=== PATIENT | female | born 1980 | race Caucasian/White ===

== ENCOUNTER 2024-05-15 14:17 | Emergency (ER) | payer SELFPAY ==
--- NOTE | 2024-05-15 14:25 | ED_ITS ---
Discharge Plan Disposition Patient Disposition: Home, Self-Care Condition: Good Prescriptions Prescriptions: New clindamycin HCl 150 mg capsule 450 mg PO Q8H 7 Days Qty: 63 0RF Activity Restrictions/Add. Instructions Additional Instructions/Restrictions: Please follow-up with your dentist, return to the emergency department any worsening signs or symptoms, please take clindamycin medication as prescribed with food. Clinical Impressions Clinical Impression: Pain, dental Instructions Patient Instructions: DI for Dental Pain Discharge ED Provider: Lester Baldwin General Adult HPI <AUDREY Romero - Last Filed: 05/15/24 14:36> General Chief complaint: Dental/Oral Stated complaint: tooth infection Time Seen by Provider: 05/15/24 14:18 Mode of Arrival: Ambulatory Source of Information: Patient Limitations: No Limitations History of Present Illness HPI narrative: 43-year-old female presents emergency department with right sided dental/tooth pain, localized to the right canine/first premolar region for the last 2 days, no dental trauma per history. Patient has area of dental caries there, and semiavulsed tooth, that she states happened approximately 3 months ago , she has history of epilepsy and takes lamotrigine, she was told that she would need oral surgeon evaluation for her dental caries/poor dentition while taking lamotrigine medication. Patient denies any fever chills chest pain shortness of breath nausea or vomiting, constipation diarrhea no urinary type symptomatology. Patient has no other real relevant past medical history takes no medications at home, denies any history of substance use/abuse, initial triage vitals grossly unremarkable. Patient of note has appointment with dental provider, as well as oral surgeon when she gets back to her home , patient tells me that she is traveling away from home at this time. Onset (ago): day(s) Related Data Previous Rx's ?Medication ?Instructions ?Recorded clindamycin HCl 150 mg capsule 450 mg (3 x 150 mg) PO Q8H 7 days 05/15/24 #63 caps Allergies Allergy/AdvReac Type Severity Reaction Status Date / Time ciprofloxacin (From Cipro) Allergy Unknown Verified 05/15/24 14:30 allergy reaction ketorolac (From Toradol) Allergy Unknown Verified 05/15/24 14:30 allergy reaction latex Allergy Unknown Verified 05/15/24 14:30 allergy reaction lidocaine Allergy Unknown Verified 05/15/24 14:30 allergy reaction meperidine (From Demerol) Allergy Unknown Verified 05/15/24 14:30 allergy reaction phenazopyridine (From Allergy Unknown Verified 05/15/24 14:30 Pyridium) allergy reaction prednisone Allergy Unknown Verified 05/15/24 14:30 allergy reaction promethazine (From Phenergan) Allergy Unknown Verified 05/15/24 14:30 allergy reaction PFSH <AUDREY Romero - Last Filed: 05/15/24 14:36> [facility] Disclaimer: The information contained in this section may have been updated after the patient was seen, as this information can be updated by other users. Social History (Updated 05/15/24 @ 14:36 by AUDREY Romero) Smoking Status: Never smoker alcohol intake: never current occupational status: other Travel in the last 8 weeks: None <AUDREY Romero - Last Filed: 05/15/24 14:36> ROS Obtained: Yes All systems reviewed & no additional complaints except as documented Physical Exam <AUDREY Romero - Last Filed: 05/15/24 14:36> General General appearance: alert and in no apparent distress Head Head exam: atraumatic and normocephalic Eye Eye exam: Present PERRL and EOMI ENT ENT exam: Present normal oropharynx, mucous membranes moist and other (Numerous area of dental caries, there is some dental caries, but no periodontal or periapical abscess around the canine on the right upper side and first premolar, with area of avulsed tooth/poor dentition, but once again no obvious periodontal or periapical abscess that would be amicable to drainag) Neck Neck exam: Present normal inspection Chest Chest inspection: Present normal inspection and symmetric chest wall rise Respiratory Respiratory exam: Present normal lung sounds bilaterally; Absent respiratory distress Cardiovascular Cardiovascular exam: Present regular rate and normal rhythm Abdominal Exam Abdominal exam: Present soft; Absent tenderness Extremities Exam Extremities exam: Present normal inspection Neurological Exam Neurological exam: Present alert and oriented X3 Psychiatric Psychiatric exam: Present normal affect Skin Skin exam: Present warm and dry Medical Decision Making <AUDREY Romero - Last Filed: 05/15/24 14:36> Medical Records Medical records reviewed: Yes I reviewed the patient's medical records. Screening: Per USPSTF and CDC recommendations, given the prevalence of disease in our region, it is our hospital?s policy to screen for HIV and viral Hepatitis for all patients aged 18 and over and those with ongoing risk factors. Issac Inquiry Pt receiving controlled substance: No Issac was queried for this patient: No Vital Signs: 05/15/24 14:26 Temperature 97.9 F Temperature Source Oral Pulse Rate [Radial] 92 H Respiratory Rate 18 Blood Pressure [Right Arm] 160/73 H Blood Pressure Mean [Right Arm] 102 Blood Pressure Source [Right Arm] Automatic Cuff Blood Pressure Position [Right Arm] Sitting 02 Sat by Pulse Oximetry 96 Oxygen Delivery Method Room Air Medical Decision Narrative: 43-year-old female presents to the emergency department with right-sided dental pain. Differential diagnose include but not limited to periapical abscess, dental caries, poor dentition, dental abscess. Offered patient analgesia here in the emergency department, to include tooth ball and p.o. analgesia, she denied at this time she tells me that she would would just like antibiotics , she states that she is taking clindamycin in the past for her dental pain, will prescribe clindamycin 450 mg p.o. every 8 for 7 days, patient was given strict ED return precautions, patient will follow-up with dentist and other providers as directed. Patient voiced understand agree with current treatment plan/discharge plan. <Lester Baldwin MD - Last Filed: 05/15/24 14:39> Vital Signs: 05/15/24 14:26 Temperature 97.9 F Temperature Source Oral Pulse Rate [Radial] 92 H Respiratory Rate 18 Blood Pressure [Right Arm] 160/73 H Blood Pressure Mean [Right Arm] 102 Blood Pressure Source [Right Arm] Automatic Cuff Blood Pressure Position [Right Arm] Sitting 02 Sat by Pulse Oximetry 96 Oxygen Delivery Method Room Air Medical Decision Narrative: 43-year-old female presents to the emergency department with right-sided dental pain. Differential diagnose include but not limited to periapical abscess, dental caries, poor dentition, dental abscess. Offered patient analgesia here in the emergency department, to include tooth ball and p.o. analgesia, she denied at this time she tells me that she would would just like antibiotics , she states that she is taking clindamycin in the past for her dental pain, will prescribe clindamycin 450 mg p.o. every 8 for 7 days, patient was given strict ED return precautions, patient will follow-up with dentist and other providers as directed. Patient voiced understand agree with current treatment plan/discharge plan. I was consulted by the FABIAN, and we discussed the complexity of the problems being addressed. I approved the treatment and management plan for this patient's care in the Emergency Department, thus performing a substantive portion of the medical decision making. Lester Baldwin MD Critical Care <AUDREY Romero - Last Filed: 05/15/24 14:36> Critical Care Time Critical Care Time: No
[2024-05-15 14:26] VITALS: BP 160/73; PULSE 92; RESP 18; TEMP 36.6; O2SAT 96; BMI 42.3
[2024-05-15 14:48] VITALS: BP 136/70; PULSE 70; RESP 16; TEMP 36.7; O2SAT 99
--- NOTE | 2024-05-21 11:24 | PC.NURSE ---
PT CALLED STATING SHE DROPPED PER MEDS FOR DENTAL INFECTION IN [facility]. NEW RX FOR SAME MED (CLINDAMYCIN) CALLED IN TO [facility]
== END 2024-05-15 14:52 | disposition home or self-care (01) ==
LOC: ER 14:51
PROVIDERS: Emergency Provider Emergency Medicine
DX: K04.7 Periapical abscess without sinus (principal); K08.89 Other specified disorders of teeth and supporting structures; K02.9 Dental caries, unspecified; S03.2XXA Dislocation of tooth, initial encounter; G40.909 Epilepsy, unspecified, not intractable, without status epilepticus; Z88.5 Allergy status to narcotic agent; Z88.8 Allergy status to other drugs, medicaments and biological substances; Z88.1 Allergy status to other antibiotic agents; Z91.040 Latex allergy status
CPT/HCPCS: 99282

== ENCOUNTER 2024-05-26 22:05 | Emergency (ER) | payer SELFPAY ==
[2024-05-26 22:13] VITALS: BP 135/82; PULSE 84; RESP 16; TEMP 37.1; O2SAT 97; BMI 43.0
--- NOTE | 2024-05-26 22:19 | PC.NURSE ---
Pt awake alert and oriented States mouth swollen no facial swelling appreciated Pt able to swallow and handle her secretions Resp full and easy Speech clear and appropriate.
--- NOTE | 2024-05-26 22:27 | CT_ITS ---
PROCEDURE INFORMATION: Exam: CT Neck With Contrast Exam date and time: 05/26/2024 11:09 PM Age: 43 years old Clinical indication: Pain; Other: Right sided facial swelling; Additional info: Dentist sent 4 R/O asha. Subjective R face pain TECHNIQUE: Imaging protocol: Computed tomography of the neck with contrast. Radiation optimization: All CT scans at this facility use at least one of these dose optimization techniques: automated exposure control; mA and/or kV adjustment per patient size (includes targeted exams where dose is matched to clinical indication); or iterative reconstruction. Contrast material: ISOVUE; Contrast volume: 75 ml; Contrast route: IV; COMPARISON: No relevant prior studies available. FINDINGS: Salivary glands: Normal. Glands are normal in size. Pharynx: Unremarkable. Larynx: Unremarkable. Epiglottis is normal. Thyroid: Normal. No enlarged or calcified nodules. Trachea: Visualized trachea is unremarkable. Lungs: Unremarkable as visualized. Lymph nodes: Unremarkable. No lymphadenopathy. Bones/joints: Unremarkable. No acute fracture. Soft tissues: Asymmetric soft tissue effacing the pre-epiglottic space may represent retained secretions or lingual tonsillar hypertrophy. Remaining hypopharyngeal soft tissues within normal limits. IMPRESSION: 1. No acute process identified. 2. Nonspecific soft tissue effacing pre-epiglottic space may represent retained secretions and/or lingual tonsillar hypertrophy. Clinical scenario should determine need for correlation with direct visualization.
--- NOTE | 2024-05-26 23:10 | PC.NURSE ---
Pt ambulatory to CT scan
--- NOTE | 2024-05-26 23:13 | HMH.EDGENADL ---
Discharge Plan Disposition Patient Disposition: Home, Self-Care Condition: Good Prescriptions Prescriptions: No Action clindamycin HCl 150 mg capsule 450 mg PO Q8H 7 Days Qty: 63 0RF Referrals Follow up/Referrals: Provider,Referral, [Primary Care Provider] - See instructions Activity Restrictions/Add. Instructions Additional Instructions/Restrictions: You were evaluated in the ER and are appropriate for discharge at this time. Make an appointment with your dentist for follow-up. Also make an appointment with your primary care doctor for reevaluation. Return to the ER with any new, worsening, or otherwise concerning symptoms Clinical Impressions Clinical Impression: Status post tooth extraction Print Language Print Language: Syriac Discharge ED Provider: Lester Baldwin General Adult HPI <Lester Baldwin MD - Last Filed: 05/26/24 23:17> General Chief complaint: PAIN Stated complaint: cellulitis on right side of face Time Seen by Provider: 05/26/24 22:20 Mode of Arrival: Ambulatory Source of Information: Patient Description of Symptoms (Recalled from ER Triage Doc. by RN): Pt states she had 2 teeth upper right side pulled and Dentist told her she had cellulititis and needed to see the ED History of Present Illness HPI narrative: Please note that above description of symptoms, in this electronic medical record under categorization of recalled from ER triage doctor by RN are reflective of an initial nursing assessment, however, is not reflective of my full history and physical exam that was personally taken and clarified. Consequentially, this preceding description of symptoms, which may include the patient's categorized chief complaint in the EMR, do not reflect my personal clinical impression, and the ultimate description of history of present illness and patient stated complaints should be deferred to this section of the note. Unless stated otherwise or congruent with this section of the note, additional signs, symptoms, or incongruence should be interpreted as inaccurate with my clinical impression. Related Data Previous Rx's ?Medication ?Instructions ?Recorded clindamycin HCl 150 mg capsule 450 mg (3 x 150 mg) PO Q8H 7 days 05/15/24 #63 caps Allergies Allergy/AdvReac Type Severity Reaction Status Date / Time ciprofloxacin (From Cipro) Allergy Unknown Verified 05/15/24 14:30 allergy reaction ketorolac (From Toradol) Allergy Unknown Verified 05/15/24 14:30 allergy reaction latex Allergy Unknown Verified 05/15/24 14:30 allergy reaction lidocaine Allergy Unknown Verified 05/15/24 14:30 allergy reaction meperidine (From Demerol) Allergy Unknown Verified 05/15/24 14:30 allergy reaction phenazopyridine (From Allergy Unknown Verified 05/15/24 14:30 Pyridium) allergy reaction prednisone Allergy Unknown Verified 05/15/24 14:30 allergy reaction promethazine (From Phenergan) Allergy Unknown Verified 05/15/24 14:30 allergy reaction PFSH <Lester Baldwin MD - Last Filed: 05/26/24 23:17> [facility] Disclaimer: The information contained in this section may have been updated after the patient was seen, as this information can be updated by other users. Social History (Updated 05/15/24 @ 14:36 by AUDREY Romero) Smoking Status: Never smoker alcohol intake: never current occupational status: other Travel in the last 8 weeks: None Have you lived/traveled outside [place] in past 30 days?: No Contact w/someone who lives/traveled outside [place] past 30 days?: No Exposure to someone with infectious disease in past 14 days?: No Do you have a fever (greater than 100.4 F or 38 C)?: No Have you tested positive for COVID-19: No Exposed to someone with COVID-19 in past 14 days?: No Do you have a sore throat?: No Do you have a cough?: No Do you have any weakness?: No Do you have any diarrhea?: No Are you experiencing any unusual bleeding?: No Do you have any muscle aches/pain?: No Do you have any abdominal pain?: No Are you experiencing loss of taste or smell?: No <Lester Baldwin MD - Last Filed: 05/26/24 23:17> ROS Obtained: Yes All systems reviewed & no additional complaints except as documented Physical Exam <Lester Baldwin MD - Last Filed: 05/26/24 23:17> General General appearance: alert Head Head exam: atraumatic and normocephalic Eye Eye exam: Present normal appearance, PERRL and EOMI ENT ENT exam: Present normal exam, normal oropharynx, mucous membranes moist and other (No evidence of tonsillitis, exudate, pharyngeal erythema, uvular deviation, palatal swelling, trismus, external neck swelling, submental induration, dental abscess, angioedema, or other abnormal maribell pharyngeal findings) Neck Neck exam: Present normal inspection, full ROM and trachea midline Respiratory Respiratory exam: Absent respiratory distress, wheezes, stridor, accessory muscle use or prolonged expiratory phase Cardiovascular Cardiovascular exam: Present other (Pulses equal symmetric in upper and lower extremities) Abdominal Exam Abdominal exam: Present soft; Absent distention, tenderness or pulsatile mass Extremities Exam Extremities exam: Absent edema Neurological Exam Neurological exam: Present alert, oriented X3 and CN II-XII intact; Absent motor sensory deficit Skin Skin exam: Present warm and dry; Absent diaphoresis or erythema Medical Decision Making <Lester Baldwin MD - Last Filed: 05/26/24 23:17> Medical Records Medical records reviewed: Yes I reviewed the patient's medical records. Screening: Per USPSTF and CDC recommendations, given the prevalence of disease in our region, it is our hospital?s policy to screen for HIV and viral Hepatitis for all patients aged 18 and over and those with ongoing risk factors. Issac Inquiry Pt receiving controlled substance: No Issac was queried for this patient: No Vital Signs: 05/26/24 22:13 05/26/24 23:36 05/26/24 23:51 Temperature 98.7 F 98.0 F 98.4 F Temperature Source Oral Oral Oral Pulse Rate 74 80 Pulse Rate [Right Brachial] 84 Respiratory Rate 16 20 20 Blood Pressure 135/41 L 130/50 L Blood Pressure [Right Arm] 135/82 Blood Pressure Mean [Right Arm] 99 Blood Pressure Source Automatic Cuff Automatic Cuff Blood Pressure Source [Right Arm] Automatic Cuff Blood Pressure Position Sitting Sitting Blood Pressure Position [Right Arm] Sitting 02 Sat by Pulse Oximetry 97 99 Oxygen Delivery Method Room Air Room Air Room Air Lab Data Lab Results 05/26/24 23:10: WBC 6.2, RBC 4.51, Hgb 12.8, Hct 39.4, MCV 87.4, MCH 28.4, MCHC 32.5, RDW 12.8, Plt Count 324, MPV 8.8, Neut % (Auto) 55.7, Lymph % (Auto) 30.6, [place] % (Auto) 11.1 H, Eos % (Auto) 1.8, Baso % (Auto) 0.3, Neut # (Auto) 3.5, Lymph # (Auto) 1.9, [place] # (Auto) 0.7, Eos # (Auto) 0.1, Baso # (Auto) 0.0, Sodium 139, Potassium 4.3, Chloride 102, Carbon Dioxide 28, Anion Gap 13.3, BUN 16, Creatinine 0.70, Estimated Creat Clear 73, Estimated GFR 90, Est GFR ( Amer) 109, Glucose 112 H, Calcium 9.7, Total Bilirubin 0.4, AST 52 H, ALT 51, Alkaline Phosphatase 84, Total Protein 8.0, Albumin 4.4, Globulin 3.6 H, Albumin/Globulin Ratio 1.2 05/26/24 23:10 05/26/24 23:10 Orders (Tests/Meds): ED MEDICATIONS Discontinued Medications Generic Name Dose Route Start Last Admin Trade Name Freq PRN Reason Stop Dose Admin Iopamidol 75 ml 05/26/24 23:26 05/26/24 23:28 Iopamidol-370 (76%);100ml Bottle IV 05/26/24 23:27 75 ml ONCE ONE Administration Sodium Chloride 10 ml 05/26/24 23:26 05/26/24 23:28 Sodium Chloride 0.9% 10ml Syr (Rad Only) IV 05/26/24 23:27 10 ml ONCE ONE Administration ORDERS Category Date Time Status CT soft tissue neck w con Stat Cat Scan 05/26/24 22:27 Completed CBC w/Auto Diff [Complete Blood Count Auto Diff] Stat Lab 05/26/24 23:10 Completed CMP [Comprehensive Metabolic Panel] Stat Lab 05/26/24 23:10 Completed HIV Combo Routine Lab 05/26/24 23:10 Received Hepatitis C Ab Qual. W/ RFX Routine Lab 05/26/24 23:10 Received Medical Decision Narrative: 43-year-old female presenting with subjective right-sided facial swelling and concern for cellulitis. Patient states that she had come to the emergency department a few days prior to this, was prescribed clindamycin. Followed up with [facility] and had 2 teeth pulled. Since that time, she states that her tooth pain, is better but states that she feels that she has cellulitis in her cheek. Dentist said that she should come to the emergency department and be scanned for Roby's angina or cellulitis. Patient presents today for this. History was obtained via conversation with patient. On arrival, patient hemodynamically stable, alert, [oriented x4, ][appropriate, ]GCS [15], moving all extremities spontaneously, pupils equal and reactive to light. Full physical exam performed and significant for completely unremarkable exam. Patient speaking full sentences, appears mildly anxious. Bilateral buccal membranes are soft, unremarkable, not indurated, although she feels that they are. Bilateral cheeks are nonindurated, nonerythematous, not warm. Oropharynx normal, no base of tongue swelling. No evidence of tonsillitis, exudate, pharyngeal erythema, uvular deviation, palatal swelling, trismus, external neck swelling, submental induration, dental abscess, angioedema, or other abnormal maribell pharyngeal findings. Patient does not have any appreciable lymphadenopathy. Completely normal exam despite patient's subjective complaints. Differential includes illness anxiety disorder, post dental extraction pain, less likely to be cellulitis, Roby's angina, among others.. Labs ordered, CT scan also ordered. Prior to these being performed, care handed off to oncoming physician. [employer] Hand disclaimer Much of this encounter note is an electronic sales operations associate spoken language to printed text. Electronic sales operations associate of the spoken language may permit errors. Although I have reviewed the note, some errors may still exist. <Erin Jaquez MD - Last Filed: 05/26/24 23:58> Vital Signs: 05/26/24 22:13 05/26/24 23:36 05/26/24 23:51 Temperature 98.7 F 98.0 F 98.4 F Temperature Source Oral Oral Oral Pulse Rate 74 80 Pulse Rate [Right Brachial] 84 Respiratory Rate 16 20 20 Blood Pressure 135/41 L 130/50 L Blood Pressure [Right Arm] 135/82 Blood Pressure Mean [Right Arm] 99 Blood Pressure Source Automatic Cuff Automatic Cuff Blood Pressure Source [Right Arm] Automatic Cuff Blood Pressure Position Sitting Sitting Blood Pressure Position [Right Arm] Sitting 02 Sat by Pulse Oximetry 97 99 Oxygen Delivery Method Room Air Room Air Room Air Lab Data Lab Results 05/26/24 23:10: WBC 6.2, RBC 4.51, Hgb 12.8, Hct 39.4, MCV 87.4, MCH 28.4, MCHC 32.5, RDW 12.8, Plt Count 324, MPV 8.8, Neut % (Auto) 55.7, Lymph % (Auto) 30.6, [place] % (Auto) 11.1 H, Eos % (Auto) 1.8, Baso % (Auto) 0.3, Neut # (Auto) 3.5, Lymph # (Auto) 1.9, [place] # (Auto) 0.7, Eos # (Auto) 0.1, Baso # (Auto) 0.0, Sodium 139, Potassium 4.3, Chloride 102, Carbon Dioxide 28, Anion Gap 13.3, BUN 16, Creatinine 0.70, Estimated Creat Clear 73, Estimated GFR 90, Est GFR ( Amer) 109, Glucose 112 H, Calcium 9.7, Total Bilirubin 0.4, AST 52 H, ALT 51, Alkaline Phosphatase 84, Total Protein 8.0, Albumin 4.4, Globulin 3.6 H, Albumin/Globulin Ratio 1.2 Orders (Tests/Meds): ED MEDICATIONS Discontinued Medications Generic Name Dose Route Start Last Admin Trade Name Freq PRN Reason Stop Dose Admin Iopamidol 75 ml 05/26/24 23:26 05/26/24 23:28 Iopamidol-370 (76%);100ml Bottle IV 05/26/24 23:27 75 ml ONCE ONE Administration Sodium Chloride 10 ml 05/26/24 23:26 05/26/24 23:28 Sodium Chloride 0.9% 10ml Syr (Rad Only) IV 05/26/24 23:27 10 ml ONCE ONE Administration ORDERS Category Date Time Status CT soft tissue neck w con Stat Cat Scan 05/26/24 22:27 Completed CBC w/Auto Diff [Complete Blood Count Auto Diff] Stat Lab 05/26/24 23:10 Completed CMP [Comprehensive Metabolic Panel] Stat Lab 05/26/24 23:10 Completed HIV Combo Routine Lab 05/26/24 23:10 Received Hepatitis C Ab Qual. W/ RFX Routine Lab 05/26/24 23:10 Received Medical Decision Narrative: 43-year-old female presenting with subjective right-sided facial swelling and concern for cellulitis. Patient states that she had come to the emergency department a few days prior to this, was prescribed clindamycin. Followed up with [facility] and had 2 teeth pulled. Since that time, she states that her tooth pain, is better but states that she feels that she has cellulitis in her cheek. Dentist said that she should come to the emergency department and be scanned for Roby's angina or cellulitis. Patient presents today for this. History was obtained via conversation with patient. On arrival, patient hemodynamically stable, alert, [oriented x4, ][appropriate, ]GCS [15], moving all extremities spontaneously, pupils equal and reactive to light. Full physical exam performed and significant for completely unremarkable exam. Patient speaking full sentences, appears mildly anxious. Bilateral buccal membranes are soft, unremarkable, not indurated, although she feels that they are. Bilateral cheeks are nonindurated, nonerythematous, not warm. Oropharynx normal, no base of tongue swelling. No evidence of tonsillitis, exudate, pharyngeal erythema, uvular deviation, palatal swelling, trismus, external neck swelling, submental induration, dental abscess, angioedema, or other abnormal maribell pharyngeal findings. Patient does not have any appreciable lymphadenopathy. Completely normal exam despite patient's subjective complaints. Differential includes illness anxiety disorder, post dental extraction pain, less likely to be cellulitis, Roby's angina, among others.. Labs ordered, CT scan also ordered. Prior to these being performed, care handed off to oncoming physician. Jaquez: Upon my assumption of care patient is stable, resting comfortably, vitals are very reassuring and patient has no evidence of infection clinically. I agree with the assessment and plan from Dr. Baldwin. Labs demonstrate no leukocytosis or anemia, normal platelets, CMP nonactionable. CT was personally interpreted and I do not appreciate any evidence of fluid collection, cellulitis, Roby's angina. See radiology read for full interpretation. Radiology read comments on possible lingual tonsillar hypertrophy, this does not correlate clinically, patient does not have any symptoms that would be consistent with this. I believe it is much more likely to be retained secretions which was also believed to be a possibility per the radiologist. On reassessment patient is very relieved by our workup and findings. She is glad there is no evidence of infection. She is appropriate for discharge without further intervention or workup at this time. No changes to medications. Patient was given instructions on symptomatic management, follow up instructions including with her dentist and PCP, and return precautions for the emergency department. Patient indicated understanding and was discharged in stable condition. [employer] Hand disclaimer Much of this encounter note is an electronic sales operations associate spoken language to printed text. Electronic sales operations associate of the spoken language may permit errors. Although I have reviewed the note, some errors may still exist. Critical Care <Lester Baldwin MD - Last Filed: 05/26/24 23:17> Critical Care Time Critical Care Time: No
[2024-05-26 23:17] LABS: Basophils % 0.3 % (0.1-2.0); Eosinophils # 0.1 K/mm3 (0.0-0.4); Eosinophils % 1.8 % (0.1-12.0); Hematocrit 39.4 % (37.0-47.0); Hemoglobin 12.8 g/dL (12.2-16.2); Lymphocytes # 1.9 K/mm3 (0.7-4.5); Lymphocytes % 30.6 % (10-50); Mean Corpuscular HGB Conc 32.5 g/dL (31.8-35.4); Mean Corpuscular Hemoglobin 28.4 pg (27.0-31.2); Mean Corpuscular Volume 87.4 fl (81-99); Mean Platelet Volume 8.8 fl (7.4-10.4); Monocytes # 0.7 K/mm3 (0.1-1.0); Monocytes % 11.1 % (1.7-9.3); Neutrophils # 3.5 K/mm3 (1.8-7.8); Neutrophils % 55.7 % (37.0-80.0); Platelet Count 324 K/mm3 (142-424); Red Blood Count 4.51 M/mm3 (4.20-5.40); Red Cell Distribution Width 12.8 % (11.5-17.5); White Blood Count 6.2 K/mm3 (4.8-10.8)
[2024-05-26 23:20] LABS: Albumin Level 4.4 g/dl (3.5-5.0); Chloride 102 mmol/L (98-107); Potassium 4.3 mmoL/L (3.5-5.1); Sodium 139 mmol/L (136-145)
[2024-05-26 23:22] LABS: Blood Urea Nitrogen 16 mg/dl (7-17); Creatinine Clearance Estimated 73 mL/min (50-200); Estimated Glomerular Filt Rate 90 ml/min (>60); GFR (African American) 109 ML/MIN (>60)
[2024-05-26 23:23] LABS: Alanine Aminotransferase 51 U/L (12-78); Albumin/Globulin Ratio 1.2 (1.1-1.8); Alkaline Phosphatase 84 U/L (38-126); Anion Gap 13.3 mEq/L (5-15); Aspartate Amino Transferase 52 U/L (14-36); Bilirubin,Total 0.4 mg/dl (0.2-1.3); Calcium 9.7 mg/dl (8.4-10.2); Carbon Dioxide 28 mmol/L (22.0-30.0); Globulin 3.6 g/dL (1.3-3.2); Glucose 112 mg/dl (74-100)
[2024-05-26] MEDS: SODIUM CHLORIDE 0.9% 10ML SYR (RAD ONLY) 10 ML IV (23:28)
[2024-05-26] MEDS: IOPAMIDOL-370 (76%);100ML BOTTLE 75 ML IV (23:28)
[2024-05-26 23:36] VITALS: BP 135/41; PULSE 74; RESP 20; TEMP 36.7; O2SAT 99
[2024-05-26 23:51] VITALS: BP 130/50; PULSE 80; RESP 20; TEMP 36.9; O2SAT 98
[2024-05-27 01:43] LABS: Hepatitis C Ab Qual. W/ RFX NEGATIVE (Negative)
[2024-05-27 01:56] LABS: HIV Combo NEGATIVE (Negative)
--- OUTSIDE RECORDS SUMMARY | 2024-05-31 19:58 | XMS_ITS | Continuity of Care Document ---
Author Name [facility] Organization [facility] Care Team Providers Care Toll Booth Operator Name Role Phone [facility] Unavailable Unavailable Problems Problem Status Onset Date Classification Date Reported Comments Source Pain, dental Active 04/06/2021 04/07/2021 75 Ad [facility] Periapical abscess Active 11/15/2020 11/16/2020 80 [facility] Dysuria Active 09/19/2020 09/20/2020 75 [facility] Dental pain 07/09/2019 07/10/2019 75 [facility] Urination painful 06/03/2019 06/04/2019 75 [facility] Pain in tooth 12/31/2018 01/01/2019 75 [facility] Toothache 11/07/2018 11/08/2018 75 Adven [facility]ist [facility] Painful Urination 08/28/2018 08/29/2018 75 [facility] Thumb pain 07/15/2018 07/16/2018 75 [facility]ve [facility] Sore Throat 06/28/2018 06/30/2018 75 Adv [facility] Cough 04/04/2018 04/05/2018 75 [facility] Anxiety(Confirm ed) Inactive 04/07/2021 [facility] Bronchitis(Conf irmed) Inactive 04/07/2021 [facility] Irritable bowel syndrome(Confir med) Inactive 04/07/2021 [facility] Migraine(Confir med) Inactive 04/07/2021 [facility] UTI - Urinary tract infection(Confi rmed) Inactive 04/07/2021 [facility] Anxiety Inactive 12/26/2023 75 [facility] Bronchitis Inactive 12/26/2023 75 [facility] Irritable bowel syndrome Inactive 12/26/2023 75 [facility] Migraine Inactive 12/26/2023 [facility] UTI - Urinary tract infection Inactive 12/26/2023 75 [facility] Medications Medication Details Route Status Patient Instructions Ordering Provider Order Date Source Septra DS oral tablet = 1 Tab, ORAL, BID, X 10 Day(s), # 20 Tab, Indication= UTI, complicated, 0 Refill(s), Acute, Pharmacy: [id number], 152.4, cm, 12/24/23 23:06:00 PDT, Height/Length (cm), 100.5, kg, 12/24/23 23:06:00 PDT, Dose calculation weight (kg) Active 024 75 [facility] cephalexin 500 mg oral capsule = 1 Cap, ORAL, QID, X 5 Day(s), # 20 Cap, Indication= UTI, uncomplicated, 0 Refill(s), Acute, Pharmacy: [id number], 152.4, cm, 10/26/22 19:48:00 PDT, Height/Length (cm), 98.9, kg, 10/26/22 19:48:00 PDT, Dose calculation weight (kg) Active 023 75 [facility] Keflex 500 mg oral capsule = 1 Cap, ORAL, QID, X 10 Day(s), # 40 Cap, Indication= UTI, complicated, 0 Refill(s), Acute, Pharmacy: [facility] [id number], 154.94, cm, 06/08/22 9:08:00 PDT, Height/Length (cm), 95.6, kg, 06/08/22 9:08:00 PDT, Dose calculation weight (kg) Active 023 75 [facility] ondansetron 4 mg oral tablet, disintegrating = 1 DT_Tab, ORAL, Q8H, # 6 Tab, 0 Refill(s), Soft Stop, Pharmacy: [id number], 154.94, cm, 06/08/22 9:08:00 PDT, Height/Length (cm), 95.6, kg, 06/08/22 9:08:00 PDT, Dose calculation weight (kg) Active 75 [facility] Proventil HFA 90 mcg/inh inhalation aerosol 1 Puff, INH, QID, PRN for wheezing, # 1 ea, 0 Refill(s), Maintenance, Pharmacy: [facility], 152.4, cm, 12/30/21 18:55:00 PST, Height/Length (cm), 96, kg, 03/10/22 17:24:00 PST, Dose calculation weight (kg) Active [address] [place] [address] Zofran ODT 4 mg oral tablet, disintegrating = 1 Tab, ORAL, QID, # 8 Tab, 0 Refill(s), Maintenance, Pharmacy: [facility] [id number], 152.4, cm, 12/30/21 18:55:00 PST, Height/Length (cm), 91.63, kg, 12/30/21 18:55:00 PST, Dose calculation weight (kg) Active [address] [place] [address],[facility] chlorhexidine gluconate 1.2 MG/ML Mouthwash [Periogard] 15 mL, ORAL, BID, (swish and spit; do not swallow), # 900 mL, 1 Refill(s), Maintenance, Pharmacy: [facility] [id number], 152.4, cm, 11/15/20 18:56:00 PDT, Height/Length (cm), 98.1, kg, 04/06/21 12:44:00 PST, Dose calculation weight (kg) Active [address] [place] [address] Periogard 0.12% mucous membrane liquid 15 mL, ORAL, BID, (swish and spit; do not swallow), # 900 mL, 1 Refill(s), Maintenance, Pharmacy: [facility] [id number], 152.4, cm, 11/15/20 18:56:00 PDT, Height/Length (cm), 98.1, kg, 04/06/21 12:44:00 PST, Dose calculation weight (kg) Active 022 75 [facility],Adv [facility] clindamycin 300 mg oral capsule = 1 Cap, ORAL, Q6H, X 10 Day(s), # 40 Cap, Indication= Oropharyngeal infection, 0 Refill(s), Acute, Pharmacy: [facility] #[id number], 152.4, cm, 11/15/20 18:56:00 PDT, Height/Length (cm), 98.1, kg, 04/06/21 12:44:00 PST, Dose calculation weight (kg) Active 75 [facility] clindamycin 300 mg oral capsule = 1 Cap, ORAL, Q6H, X 10 Day(s), # 40 Cap, Indication= Other (Please specify in comments), 0 Refill(s), Dental Infection, Acute, Pharmacy: [facility] #[id number], 152.4, cm, 11/15/20 18:56:00 PDT, Height/Length (cm), 93, kg, 03/05/21 14:44:00 PST, Dose calc... Active 022 75 [facility] clindamycin 300 mg oral capsule = 1 Cap, ORAL, Q8H, X 7 Day(s), # 21 Cap, Indication= Other (Please specify in comments), 0 Refill(s), dental abscess, Acute Active 021 80 [facility] clindamycin 300 mg oral capsule = 1 Cap, ORAL, Q6H, X 10 Day(s), # 40 Cap, Indication= Other (Please specify in comments), 0 Refill(s), Dental abscess, Acute, Pharmacy: [facility] #[id number], 154, cm, 07/09/19 13:10:00 PDT, Height/Length (cm), 88.5, kg, 07/09/19 13:10:00 PDT, Dose calcul... Active 020 75 [facility] Cephalexin 500 MG Oral Capsule [Keflex] = 1 Cap, ORAL, QID, X 7 Day(s), # 28 Cap, Indication= UTI, uncomplicated, 0 Refill(s), Acute, Pharmacy: [facility] #[id number], 162, cm, 06/03/19 9:31:00 PDT, Height/Length (cm), 88.1, kg, 06/03/19 9:31:00 PDT, Dose calculation weight (kg) Active 75 [facility] clindamycin 300 mg oral capsule = 1 Cap, ORAL, Q6H, X 10 Day(s), # 40 Cap, Indication= Other-Comment on Infectious Source/Site, 0 Refill(s), z, Acute Active [address] [place] [address] clindamycin 300 mg oral capsule = 1 Cap, ORAL, Q8H, X 10 Day(s), # 30 Cap, Indication= Dental abscess, 0 Refill(s), Acute Active [address] [place] [address] Cephalexin 500 MG Oral Capsule [Keflex] = 1 Cap, ORAL, BID, X 5 Day(s), # 10 Cap, Indication= Urinary Tract Infection (UTI), 0 Refill(s), Acute Active [address] [place] [address] clindamycin 300 mg oral capsule = 1 Cap, ORAL, Q6H, X 10 Day(s), # 40 Cap, Indication= Dental abscess, 0 Refill(s), Acute Active [address] [place] [address] Metronidazole 500 MG Oral Tablet [Flagyl] = 1 Tab, ORAL, Q8H, X 10 Day(s), # 30 Tab, Indication= Dental abscess, 0 Refill(s), Acute Active [address] [place] [address] phenol 14 MG/ML Mucosal [place] [Chloraseptic [place]] 5 [place], ORAL, Q4H, # 180 mL, 0 Refill(s), Acute Active [address] [place] [address] Acetaminophen 300 MG / Codeine Phosphate 30 MG Oral Tablet [Tylenol with Codeine #3] 1 Tab, ORAL, Q4H, PRN for pain, # 4 Tab, 0 Refill(s), Maintenance Active [address] [place] [address] Acetaminophen 300 MG / Codeine Phosphate 30 MG Oral Tablet [Tylenol with Codeine #3] 1 Tab, ORAL, Q4H, PRN for pain, # 4 Tab, 0 Refill(s), Maintenance Active [facility] Tylenol with Codeine #3 oral tablet 1 Tab, ORAL, Q4H, PRN for pain, # 4 Tab, 0 Refill(s), Maintenance Active [address] [place] [address] Naproxen 500 MG Oral Tablet = 1 Tab, ORAL, BID, PRN for pain, # 20 Tab, 0 Refill(s), Maintenance Active [facility] naproxen 500 mg oral tablet = 1 Tab, ORAL, BID, PRN PRN for pain, # 20 Tab, 0 Refill(s), Maintenance Active [facility],[address] [place] [address] traMADol 50 mg oral tablet = 1 Tab, ORAL, Q4H, PRN PRN for pain, # 24 Tab, 0 Refill(s), Maintenance Active [facility],[address] [place] [address] Ergocalciferol 400 IntUnit, ORAL, DAILY, 0 Refill(s), Maintenance Active [facility] Vitamin D 400 IntUnit, ORAL, DAILY, 0 Refill(s), Maintenance Active [address] [place] [address],[facility] Vitamin C 0 Refill(s), Maintenance Active [facility],[address] [place] [address],[facility] Multivitamins oral capsule = 1 Cap, ORAL, DAILY, 0 Refill(s), Maintenance Active [facility],[address] [place] [address],[facility] lamoTRIgine 25 mg oral tablet = 1 Tab, ORAL, DAILY, 0 Refill(s), Maintenance Active [facility],75 [facility],Adv [facility] lamoTRIgine 25 mg oral tablet = 1 Tab, ORAL, DAILY, 0 Refill(s), Maintenance Active 015 75 [facility] albuterol CFC free 90 mcg/inh Inhaler = 2 Puff, INH, Q4H, PRN PRN for wheezing, # 1 ea, 0 Refill(s), Maintenance, Pharmacy: [facility] [address] Active 014 [facility],75 [facility],Adv [facility] Tylenol 0 Refill(s) Active 012 [facility] Tylenol 0 Refill(s) Active 012 75 [facility],Adv [facility] Allergies, Adverse Reactions, Alerts Substance Category Reaction Severity Reaction type Status Date Reported Comments Source doxycycline Assertion Propensity to adverse reactions to drug Active 75 [facility] Toradol Assertion Drug allergy Active 75 [facility] doxycycline Assertion Propensity to adverse reactions to drug Active [facility],75 [facility],Ad [facility] lidocaine Assertion Drug allergy Active [facility],[address] [place] [address],Ad [facility] Toradol Assertion Drug allergy Active [facility],75 [facility],Ad [facility] Phenergan Assertion Drug allergy Active [facility],75 [facility],Ad [facility] Pyridium Assertion Drug allergy Active [facility],75 [facility],Ad [facility] Vicodin Assertion Drug allergy Active [facility],75 [facility],Ad [facility] Demerol Assertion Drug allergy Active [facility],75 [facility],Ad [facility] Latex Assertion Allergy to substance Active [facility],75 [facility],Ad [facility] prednisone Assertion Drug allergy Active [facility],75 [facility],Ad [facility] fentanyl Assertion Drug allergy Active [facility],75 [facility],Ad [facility] Results Order Name Results Value Reference Range Date Interpretation Comments Source POC UADip POCT - UR Color Other 12/24 NA Device Code: [address] CT 27Facility: 0075Location: ERSerial Number: [id number] r Code: [id number] tor Name: Jeffrey Burnett able Lot: [id number] [facility] POC UADip POCT - UR Appearance Slightly Cloudy 12/24 NA [facility] POC UADip POCT - UR pH 5.5 5.0 - 8.0 12/24 NA [facility] POC UADip POCT - UR Specific Hope >=1.030 ZZ 1.010 - 1.025 12/24 * [facility] POC UADip POCT - UR Protein 30 mg/dL Negative 12/24 * [facility] POC UADip POCT - UR Glucose Negative mg/dL Negative 12/24 NA [facility] POC UADip POCT - UR Ketones Negative mg/dL Negative 12/24 NA [facility] POC UADip POCT - UR Bilirubin Negative Negative 12/24 NA [facility] POC UADip POCT - UR Urobilinogen 0.2 mg/dL 0.0 - 1.0 12/24 NA [facility] POC UADip POCT - UR Blood Trace-inta ct Negative 12/24 * [facility] POC UADip POCT - UR Leuk Esterase Negative Negative 12/24 NA [facility] POC UADip POCT - UR Nitrates Positive Negative 12/24 * [facility] POC UADip Sex assigned at Female 12/24 NA [facility] POC UPreg POCT - hCG Urine Qual Negative ZZ 12/24 NA Device Code: 75 CT 31Facility: 0075Location: ERSerial Number: [id number] r Code: [id number] jose Name: Jeffrey Burnett able Lot: [id number] [facility] POC UPreg Sex assigned at Female 12/24 NA [facility] AutoDiff* Auto Neutrophil Percent 56.9 % 42.0 - 74.0 10/27 [facility] AutoDiff* Auto Neutrophil Absolute 4.5 K/uL 1.3 - 7.0 10/27 [facility] AutoDiff* Auto Lymphocyte Percent 32.2 % 19.0 - 46.0 10/27 [facility] AutoDiff* Auto Lymphocyte Absolute 2.5 K/uL 1.0 - 3.4 10/27 [facility] AutoDiff* Auto Monocyte Percent 8.5 % 2.3 - 11.2 10/27 [facility] AutoDiff* Auto Monocyte Absolute 0.7 K/uL 0.2 - 1.6 10/27 [facility] AutoDiff* Auto Eosinophil Percent 2.0 % - <=6.0 10/27 [facility] AutoDiff* Auto Eosinophil Absolute 0.2 K/uL - <=0.7 10/27 [facility] AutoDiff* Auto Basophil Percent 0.4 % - <=3.0 10/27 [facility] AutoDiff* Auto Basophil Absolute 0.0 K/uL - <=0.2 10/27 [facility] AutoDiff* Sex assigned at Female 10/27 [facility] CBC WBC 7.9 K/uL 4.0 - 10.5 10/27 [facility] CBC RBC 4.33 M/mm3 3.50 - 5.50 10/27 [facility] CBC HGB 12.5 gm/dL 12.0 - 16.0 10/27 NA [facility] CBC HCT 36.9 % 35.0 - 47.0 10/27 NA [facility] CBC MCV 85.3 fL 77.0 - 96.0 10/27 NA [facility] CBC MCH 29.0 pg 27.0 - 32.0 10/27 NA [facility] CBC MCHC 34.0 gm/dL 32.0 - 36.0 10/27 NA [facility] CBC RDW 13.3 % 12.0 - 16.0 10/27 NA [facility] CBC PLT 310 K/uL 142 - 424 10/27 NA [facility] CBC Sex assigned at Female 10/27 NA [facility] CMP Sodium Level 138 mmol/L 136 - 145 10/27 NA [facility] CMP Potassium Level 3.6 mmol/L 3.5 - 5.1 10/27 NA [facility] CMP Chloride Level 103 mmol/L 98 - 107 10/27 [facility] CMP CO2/Carbon Dioxide 29 mmol/L 21 - 31 10/27 NA [facility] CMP Anion Gap 6 10/27 NA [facility] CMP Glucose, Random 109 mg/dL 70 - 140 10/27 [facility] CMP BUN 18 mg/dL 7 - 25 10/27 [facility] CMP Creatinine 0.8 mg/dL 0.6 - 1.2 10/27 NA [facility] CMP BUN/Creat Ratio 22.5 15.0 - 24.0 10/27 [facility] CMP Osmolality, Calculated 288 mOsm/L 10/27 [facility] CMP Calcium Level 8.8 mg/dL 8.6 - 10.3 10/27 [facility] CMP Total Protein 6.8 gm/dL 6.0 - 8.3 10/27 [facility] Albumin Level 3.9 gm/dL 3.5 - 5.7 10/27 [facility] Globulin Level 2.9 gm/dL 2.0 - 4.0 10/27 [facility] A/G Ratio 1.3 10/27 [facility] ALP 70 IntUnit/L 34 - 104 10/27 [facility] ALT 36 units/L 7 - 52 10/27 [facility] AST 22 IntUnit/L 13 - 39 10/27 [facility] Bilirubin, Total 0.2 mg/dL 0.0 - 1.0 10/27 [facility] eGFR >90 mL/min/1.7 3m2 10/27 NA This eGFR equation utilizes the 2020 CKD-EPI creatinine equation.Stag es GFRNone or slight 1 >90 ml/minMild 2 60-89 ml/minModerat e 3 30-59 ml/minSevere 4 15-29 ml/minApproac kvng Failure 5 <15 ml/min [facility] Sex assigned at Female 10/27 [facility] ChlamTGCPC R Chlamydia GC PCR Source Urine 10/27 [facility] ChlamTGCPC R Chlamydia trachomatis by PCR NOT DETECTED Not Detected 10/27 [facility] ChlamTGCPC R GC Gonorrhea by PCR NOT DETECTED Not Detected 10/27 [facility] ChlamTGCPC R Chlamydia trachomatis PCR Interp Chlamydia trachomati s (CT) DNA not detected by PCR. A negative result does not preclude the presence of CT infection because results depend on adequate specimen collection , absence of inhibitors , and sufficient DNA to be detected. 10/27 [facility] ChlamTGCPC R GC Gonorrhea PCR Interp Neisseria gonorrhoea e (GC) DNA not detected by PCR. A negative result does not preclude the presence of GC infection because results depend on adequate specimen collection , absence of inhibitors , and sufficient DNA to be detected. 10/27 NA [facility] ChlamTGCPC R Sex assigned at Female 10/27 NA [facility] POC UADip POCT - UR Color Yellow 10/27 NA Device Code: [address] 3Facility: 0075Location: ERSerial Number: [id number] r Code: [id number] tor Name: Lloyd Self Lot: [id number] [facility] POC UADip POCT - UR Appearance Cloudy 10/27 NA [facility] POC UADip POCT - UR pH 6.0 5.0 - 8.0 10/27 NA [facility] POC UADip POCT - UR Specific [place] >=1.030 ZZ 1.010 - 1.025 10/27 * [facility] POC UADip POCT - UR Protein Negative mg/dL Negative 10/27 [facility] POC UADip POCT - UR Glucose Negative mg/dL Negative 10/27 [facility] POC UADip POCT - UR Ketones Negative mg/dL Negative 10/27 [facility] POC UADip POCT - UR Bilirubin Negative Negative 10/27 [facility] POC UADip POCT - UR Urobilinogen 0.2 mg/dL 0.0 - 1.0 10/27 NA [facility] POC UADip POCT - UR Blood Trace-inta ct Negative 10/27 * [facility] POC UADip POCT - UR Leuk Esterase Negative Negative 10/27 [facility] POC UADip POCT - UR Nitrates Positive Negative 10/27 * [facility] POC UADip Sex assigned at Female 10/27 [facility] POC UPreg POCT - hCG Urine Qual Negative ZZ 10/27 NA Device Code: [address] 4Facility: 0075Location: ERSerial Number: [id number] r Code: [id number] jose Name: Lloyd Self Lot: [id number] [facility] POC UPreg Sex assigned at Female 10/27 NA [facility] UACSIf UA - Source/Colle ct Type Urine Clean Cat 10/27 NA [facility] UACSIf UA - Appearance Clear Clear 10/27 NA [facility] UACSIf UA - Color Yellow 10/27 NA [facility] UACSIf UA - pH 5 5 - 7 10/27 NA [facility] UACSIf UA - Specific Hope 1.026 ZZ 1.010 - 1.025 10/27 H [facility] UACSIf UA - Protein Negative mg/dL Negative 10/27 NA [facility] UACSIf UA - Glucose Negative mg/dL Negative 10/27 NA [facility] UACSIf UA - Ketones Negative mg/dL Negative 10/27 NA [facility] UACSIf UA - Bilirubin Negative Negative 10/27 NA [facility] UACSIf UA - Blood Small Negative 10/27 * [facility] UACSIf UA - Urobilinogen Negative mg/dL Negative 10/27 NA [facility] UACSIf UA - Nitrites Negative Negative 10/27 NA [facility] UACSIf UA - Leukocyte Esterase Negative Negative 10/27 [facility] UACSIf Urine Culture Y/N Yes 10/27 NA [facility] UACSIf UA - WBC 1-2 /HPF 10/27 NA [facility] UACSIf UA - RBC 3-5 /HPF 10/27 * [facility] UACSIf UA - Bacteria Many /HPF Negative 10/27 * [facility] UACSIf UA - Epithelials, Squamous Few /LPF 10/27 NA [facility] UACSIf UA - Mucus Few /LPF 10/27 NA [facility] UACSIf Sex assigned at Female 10/27 NA [facility] C Urine C Urine Final:>100 ,000 cfu/ml [place] a coli , and >100,000 cfu/ml [place] a coli ESBL . Results confirmed by repeated MURIEL.ORGANI SM:ECESBLE CSex assigned at :Fema le 10/27 [facility] POC UADip POCT - UR Color Yellow 06/08 NA Device Code: [address] 4Facility: 0075Location: ERSerial Number: [id number] r Code: BurnsBAOperat or Name: Mata RashaaddeweyeDisposa ble Lot: [id number] [facility] POC UADip POCT - UR Appearance Clear 06/08 NA [facility] POC UADip POCT - UR pH 6.0 5.0 - 8.0 06/08 NA [facility] POC UADip POCT - UR Specific Hope >=1.030 ZZ 1.010 - 1.025 06/08 * [facility] POC UADip POCT - UR Protein 30 mg/dL Negative 06/08 * [facility] POC UADip POCT - UR Glucose Negative mg/dL Negative 06/08 NA [facility] POC UADip POCT - UR Ketones Negative mg/dL Negative 06/08 NA [facility] POC UADip POCT - UR Bilirubin Small Negative 06/08 * [facility] POC UADip POCT - UR Urobilinogen 0.2 mg/dL 0.0 - 1.0 06/08 NA [facility] POC UADip POCT - UR Blood Trace-lyse d Negative 06/08 * [facility] POC UADip POCT - UR Leuk Esterase Negative Negative 06/08 NA [facility] POC UADip POCT - UR Nitrates Negative Negative 06/08 NA [facility] POC UADip Sex assigned at Female 06/08 NA [facility] POC UPreg POCT - hCG Urine Qual Negative ZZ 06/08 NA Device Code: [address] 1Facility: 0075Location: ERSerial Number: [id number] r Code: Asuncion or Name: Brook Mata ble Lot: [id number] [facility] POC UPreg Sex assigned at Female 06/08 NA [facility] UACSIf UA - Source/Colle ct Type Urine Clean Cat 06/08 NA [facility] UACSIf UA - Appearance Clear Clear 06/08 NA [facility] UACSIf UA - Color Yellow 06/08 NA [facility] UACSIf UA - pH 5 5 - 7 06/08 NA [facility] UACSIf UA - Specific [place] 1.038 ZZ 1.010 - 1.025 06/08 H [facility] UACSIf UA - Protein Negative mg/dL Negative 06/08 NA [facility] UACSIf UA - Glucose Negative mg/dL Negative 06/08 NA [facility] UACSIf UA - Ketones Negative mg/dL Negative 06/08 NA [facility] UACSIf UA - Bilirubin Negative Negative 06/08 NA [facility] UACSIf UA - Blood Negative Negative 06/08 NA [facility] UACSIf UA - Urobilinogen Negative mg/dL Negative 06/08 NA [facility] UACSIf UA - Nitrites Negative Negative 06/08 NA [facility] UACSIf UA - Leukocyte Esterase Small Negative 06/08 * [facility] UACSIf Urine Culture Y/N Yes 06/08 NA [facility] UACSIf UA - WBC 31-50 /HPF 06/08 * [facility] UACSIf UA - RBC 3-5 /HPF 06/08 * [facility] UACSIf UA - Bacteria Few /HPF Negative 06/08 * [facility] UACSIf UA - Epithelials, Squamous Few /LPF 06/08 NA [facility] UACSIf UA - Mucus Few /LPF 06/08 NA [facility] UACSIf Sex assigned at Female 06/08 NA [facility] C Urine C Urine Final:>100 ,000 cfu/ml Klebsiella pneumoniae >100,000 cfu/ml [place] a coliORGANI SM:KPECSex assigned at :Fema le 06/08 [facility] UACSIf UA - Source/Colle ct Type Urine Clean Cat 03/11 NA [facility] UACSIf UA - Appearance Clear Clear 03/11 NA [facility] UACSIf UA - Color Yellow 03/11 NA [facility] UACSIf UA - pH 5 5 - 7 03/11 NA [facility] UACSIf UA - Specific Hope 1.034 ZZ 1.010 - 1.025 03/11 H [facility] UACSIf UA - Protein Negative mg/dL Negative 03/11 NA [facility] UACSIf UA - Glucose Negative mg/dL Negative 03/11 NA [facility] UACSIf UA - Ketones Negative mg/dL Negative 03/11 NA [facility] UACSIf UA - Bilirubin Negative Negative 03/11 NA [facility] UACSIf UA - Blood Negative Negative 03/11 NA [facility] UACSIf UA - Urobilinogen Negative mg/dL Negative 03/11 NA [facility] UACSIf UA - Nitrites Negative Negative 03/11 NA [facility] UACSIf UA - Leukocyte Esterase Negative Negative 03/11 NA [facility] UACSIf Urine Culture Y/N No 03/11 NA [facility] UACSIf UA - WBC 1-2 /HPF 03/11 NA [facility] UACSIf UA - RBC 1-2 /HPF 03/11 NA [facility] UACSIf UA - Bacteria Negative /HPF Negative 03/11 NA [facility] UACSIf UA - Epithelials, Squamous Few /LPF 03/11 NA [facility] UACSIf UA - Mucus Few /LPF 03/11 NA [facility] UACSIf Sex assigned at Female 03/11 NA [facility] POC UADip POCT - UR Color Yellow 03/11 NA Device Code: [address] 1Facility: 0075Location: ERSerial Number: [id number] r Code: [id number] jose Name: Osmel Patel ([place]) Lot: [id number] [facility] POC UADip POCT - UR Appearance Clear 03/11 NA [facility] POC UADip POCT - UR pH 5.5 5.0 - 8.0 03/11 NA [facility] POC UADip POCT - UR Specific Hope >=1.030 ZZ 1.010 - 1.025 03/11 * [facility] POC UADip POCT - UR Protein Negative mg/dL Negative 03/11 NA [facility] POC UADip POCT - UR Glucose Negative mg/dL Negative 03/11 NA [facility] POC UADip POCT - UR Ketones Negative mg/dL Negative 03/11 [facility] POC UADip POCT - UR Bilirubin Negative Negative 03/11 [facility] POC UADip POCT - UR Urobilinogen 0.2 mg/dL 0.0 - 1.0 03/11 NA [facility] POC UADip POCT - UR Blood Trace-inta ct Negative 03/11 * [facility] POC UADip POCT - UR Leuk Esterase Negative Negative 03/11 NA [facility] POC UADip POCT - UR Nitrates Negative Negative 03/11 NA [facility] POC UADip Sex assigned at Female 03/11 NA [facility] POC UPreg POCT - hCG Urine Qual Negative ZZ 03/11 NA Device Code: [address] 4Facility: 0075Location: ERSerial Number: [id number] r Code: Trevor garcia Name: Jorge (Ja) SarahDisposab le Lot: [id number] [facility] POC UPreg Sex assigned at Female 03/11 NA [facility] POC UADip POCT - UR Color Yellow 03/25 NA Device Code: [address] 1Facility: 0075Location: ERSerial Number: [id number] r Code: [id number] jose Name: Maulik De Los Santos III RDisposable Lot: [id number] [facility] POC UADip POCT - UR Appearance Clear 03/25 NA [facility] POC UADip POCT - UR pH 6.0 5.0 - 8.0 03/25 NA [facility] POC UADip POCT - UR Specific Hope >=1.030 ZZ 1.010 - 1.025 03/25 * [facility] POC UADip POCT - UR Protein Trace mg/dL Negative 03/25 * [facility] POC UADip POCT - UR Glucose Negative mg/dL Negative 03/25 NA [facility] POC UADip POCT - UR Ketones Negative mg/dL Negative 03/25 NA [facility] POC UADip POCT - UR Bilirubin Negative Negative 03/25 NA [facility] POC UADip POCT - UR Urobilinogen 0.2 mg/dL 0.0 - 1.0 03/25 NA [facility] POC UADip POCT - UR Blood Trace-inta ct Negative 03/25 * [facility] POC UADip POCT - UR Leuk Esterase Negative Negative 03/25 NA [facility] POC UADip POCT - UR Nitrates Negative Negative 03/25 NA [facility] POC UADip Sex assigned at Female 03/25 NA [facility] POC UPreg POCT - hCG Urine Qual Negative ZZ 03/25 NA Device Code: [address] 4Facility: 0075Location: ERSerial Number: [id number] r Code: [id number] tor Name: Maulik De Los Santos III RDisposable Lot: [id number] [facility] POC UPreg Sex assigned at Female 03/25 [facility] AutoDiff* Auto Neutrophil Percent 50.6 % 42.0 - 74.0 03/25 [facility] AutoDiff* Auto Neutrophil Absolute 2.8 K/uL 1.3 - 7.0 03/25 [facility] AutoDiff* Auto Lymphocyte Percent 34.6 % 19.0 - 46.0 03/25 [facility] AutoDiff* Auto Lymphocyte Absolute 1.9 K/uL 1.0 - 3.4 03/25 [facility] AutoDiff* Auto Monocyte Percent 10.7 % 2.3 - 11.2 03/25 [facility] AutoDiff* Auto Monocyte Absolute 0.6 K/uL 0.2 - 1.6 03/25 [facility] AutoDiff* Auto Eosinophil Percent 2.2 % - <=6.0 03/25 [facility] AutoDiff* Auto Eosinophil Absolute 0.1 K/uL - <=0.7 03/25 NA [facility] AutoDiff* Auto Basophil Percent 1.9 % - <=3.0 03/25 [facility] AutoDiff* Auto Basophil Absolute 0.1 K/uL - <=0.2 03/25 NA [facility] AutoDiff* Sex assigned at Female 03/25 NA [facility] BMP Sodium Level 139 mmol/L 136 - 145 03/25 [facility] BMP Potassium Level 3.8 mmol/L 3.5 - 5.1 03/25 [facility] BMP Chloride Level 103 mmol/L 98 - 107 03/25 [facility] BMP CO2/Carbon Dioxide 28 mmol/L 21 - 31 03/25 [facility] Anion Gap 8 03/25 [facility] BMP Glucose, Random 93 mg/dL 70 - 140 03/25 [facility] BMP BUN 18 mg/dL 7 - 25 03/25 [facility] BMP Creatinine 0.8 mg/dL 0.6 - 1.2 03/25 [facility] BMP BUN/Creat Ratio 22.5 15.0 - 24.0 03/25 [facility] Osmolality, Calculated 290 mOsm/L 03/25 [facility] BMP Calcium Level 9.3 mg/dL 8.6 - 10.3 03/25 [facility] BMP GFR - Non >60 mL/min/1.7 3m2 03/25 NA Impaired kidney function is indicated by a GFR of <60 mL/min/1.73m2 . The equation used has not been validated for use with persons under 18 or over 70 years of age, women, patients with serious co-morbid conditions, or persons with extremes of body size, muscle mass or nutritional status. [facility] BMP GFR - >60 mL/min/1.7 3m2 03/25 [facility] BMP Sex assigned at Female 03/25 [facility] CBC WBC 5.6 K/uL 4.0 - 10.5 03/25 [facility] CBC RBC 4.44 M/mm3 3.50 - 5.50 03/25 [facility] CBC HGB 12.6 gm/dL 12.0 - 16.0 03/25 [facility] CBC HCT 37.4 % 35.0 - 47.0 03/25 [facility] CBC MCV 84.4 fL 77.0 - 96.0 03/25 [facility] CBC MCH 28.5 pg 27.0 - 32.0 03/25 [facility] CBC MCHC 33.8 gm/dL 32.0 - 36.0 03/25 [facility] CBC RDW 13.2 % 12.0 - 16.0 03/25 [facility] CBC PLT 358 K/uL 142 - 424 03/25 [facility] CBC Sex assigned at Female 03/25 [facility] DDimerQnt D-Dimer, Qnt <0.27 ZZ - <=0.56 03/25 NA In outpatients and ED patients with a low likelihood of PE, a normalD-dimer value is sufficient to exclude PE from the differentiald iagnosis. Testing for D-dimer in patients with suspected DVT/PE isuseful as a rule-out test, but the value of a positive test result mustbe interpreted in conjunction with clinical and radiologic findings. [facility] DDimerQnt Sex assigned at Female 03/25 [facility] Trop Troponin I <0.02 ng/mL 0.00 - 0.05 03/25 [facility] Trop Sex assigned at Female 03/25 [facility] COVFLURSV SARS-CoV-2 Source Josias murphyal 03/12 [facility] Influenza A Agn Molecular NEGATIVE Negative 03/12 NA Assay performed by RT-PCR [facility] COVFLURSV Influenza B Agn Molecular NEGATIVE Negative 03/12 NA Assay performed by RT-PCR [facility] COVFLURSV Respiratory Syncytial Virus Molecular NEGATIVE Negative 03/12 NA Assay performed by RT-PCR [facility] COVFLURSV SARS-CoV-2 Molecular POSITIVE Negative 03/12 C Called [ x ]Read Back [ x ]Called by: EGName of Accepting Caregiver: Dr. Salehte/ Time:03/11/19 19:07Time Result Available: 19:02IP / ER: 03/11/2021 19:02OP: _Assay performed by RT-PCRThis test was performed under U.S. Food and Drug Administratio n (FDA) Emergency use Authorization (EUA). This test has been validated but the FDAs independent review of this validation is pending. [facility] COVFLURSV SARS-CoV-2 First test? No 03/12 NA [facility] COVFLURSV Health Care Worker? No 03/12 [facility] COVFLURSV SARS-CoV-2 Is the Patient Hospitalized ? No 03/12 NA [facility] COVFLURSV SARS-CoV-2 Is the Patient in ICU? No 03/12 NA [facility] COVFLURSV Patient From [facility]? No 03/12 [facility] COVFL[facility] Symptomatic per CDC? No 03/12 [facility] COVFLURSV SARS-CoV-2 Is the Patient ? No 03/12 [facility] COVFLURSV Sex assigned at Female 03/12 NA [facility] RESPPCR2.1 [employer] Resp Adenovirus NOT_DETECT Not Detected 11/16 NA [facility] RESPPCR2.1 [employer] Resp Coronavirus 229E NOT_DETECT Not Detected 11/16 [facility] RESPPCR2.1 [employer] Resp Coronavirus HKU1 NOT_DETECT Not Detected 11/16 [facility] RESPPCR2.1 [employer] Resp Coronavirus NL63 NOT_DETECT Not Detected 11/16 [facility] RESPPCR2.1 [employer] Resp Coronavirus OC43 NOT_DETECT Not Detected 11/16 [facility] RESPPCR2.1 [employer] Resp Human Metapneumovi praful NOT_DETECT Not Detected 11/16 [facility] RESPPCR2.1 [employer] Resp Human Rhino/Entero NOT_DETECT Not Detected 11/16 [facility] RESPPCR2.1 [employer] Resp Influenza A NOT_DETECT Not Detected 11/16 [facility] RESPPCR2.1 [employer] Resp Influenza B NOT_DETECT Not Detected 11/16 [facility] RESPPCR2.1 [employer] Resp Parainfluenz a virus 1 NOT_DETECT Not Detected 11/16 [facility] RESPPCR2.1 [employer] Resp Parainfluenz a virus 2 NOT_DETECT Not Detected 11/16 [facility] RESPPCR2.1 [employer] Resp Parainfluenz a virus 3 NOT_DETECT Not Detected 11/16 [facility] RESPPCR2.1 [employer] Resp Parainfluenz a virus 4 NOT_DETECT Not Detected 11/16 [facility] RESPPCR2.1 [employer] Resp Respiratory Syncytial Virus NOT_DETECT Not Detected 11/16 [facility] RESPPCR2.1 [employer] Resp Bordetella parapertussi s NOT_DETECT Not Detected 11/16 [facility] RESPPCR2.1 [employer] Resp Bordetella Pertussis NOT_DETECT Not Detected 11/16 [facility] RESPPCR2.1 [employer] Resp Chlamydophil a pneumoniae NOT_DETECT Not Detected 11/16 [facility] RESPPCR2.1 [employer] Resp Mycoplasma pneumoniae NOT_DETECT Not Detected 11/16 [facility] RESPPCR2.1 SARS-CoV-2 by NAAT NOT_DETECT Not Detected 11/16 [facility] RESPPCR2.1 Sex assigned at Female 11/[address] Patient From [facility]? Unknown 11/[address] Health Care Worker? Unknown 11/[address] SARS-CoV-2 by NAAT Negative Negative 11/16 Negative results should be treated as presumptive and, if inconsistent with clinical signs and symptoms or necessary for patient management, should be tested with different authorized or cleared molecular tests. Negative results do not preclude SARS-CoV-2 infection and should not be used as the sole basis for patient management decisions. Negative results should be considered in the context of a patient?s recent exposures, history and the presence of clinical signs and symptoms consistent with COVID-19.This test was performed under U.S. Food and Drug Administratio n (FDA) Emergency use Authorization (EUA). This test has been validated but the FDAs independent review of this validation is pending. [address] Symptomatic per CDC? Unknown 11/[address] SARS-CoV-2 First test? Unknown 11/[address] SARS-CoV-2 Is the Patient Hospitalized ? Unknown 11/[address] SARS-CoV-2 Is the Patient in ICU? Unknown 11/[address] SARS-CoV-2 Is the Patient ? Unknown 11/[address] Sex assigned at Female 11/16 [facility] UACSIf UA - Source/Colle ct Type Urine Clean Cat 11/16 [facility] UACSIf UA - Appearance Clear Clear 11/16 [facility] UACSIf UA - Color Yellow 11/16 [facility] UACSIf UA - pH 6 5 - 7 11/16 NA [facility] UACSIf UA - Specific Hope 1.029 1.010 - 1.025 11/16 H [facility] UACSIf UA - Protein 30 mg/dL Negative 11/16 [facility] Glucose Negative mg/dL Negative 11/16 NA [facility] UACSIf UA - Ketones Negative mg/dL Negative 11/16 NA [facility] UACSIf UA - Bilirubin Negative Negative 11/16 NA [facility] UACSIf UA - Blood Small Negative 11/16 * [facility] UAIf UA - Urobilinogen Negative mg/dL Negative 11/16 NA [facility] UACSIf UA - Nitrites Negative Negative 11/16 NA [facility] UAIf UA - Leukocyte Esterase Negative Negative 11/16 NA [facility] UACSIf Urine Culture Y/N No 11/16 NA [facility] UACSIf UA - WBC 1-2 /HPF 11/16 NA [facility] UACSIf UA - RBC 11-20 /HPF 11/16 * [facility] UACSIf UA - Bacteria Few /HPF Negative 11/16 * [facility] Epithelials, Squamous Few /LPF 11/16 NA [facility] UAIf UA - Mucus Few /LPF 11/16 NA [facility] UAIf Sex assigned at Female 11/16 [facility] C Blood C Blood Final:No growth at 5 days.Sex assigned at :Fema le 11/16 Performed at: [facility], [facility], [place] [address], Aquarium Tank Attendant: : Sam bernal MD and Chaparro Salinas MD. [facility] AutoDiff* Auto Neutrophil Percent 85.4 % 42.0 - 74.0 11/16 H [facility] AutoDiff* Auto Neutrophil Absolute 8.7 K/uL 1.3 - 7.0 11/16 H [facility] AutoDiff* Auto Lymphocyte Percent 8.7 % 19.0 - 46.0 11/16 L [facility] AutoDiff* Auto Lymphocyte Absolute 0.9 K/uL 1.0 - 3.4 11/16 L [facility] AutoDiff* Auto Monocyte Percent 5.3 % 2.3 - 11.2 11/16 [facility] AutoDiff* Auto Monocyte Absolute 0.5 K/uL 0.2 - 1.6 11/16 [facility] AutoDiff* Auto Eosinophil Percent 0.2 % - <=6.0 11/16 [facility] AutoDiff* Auto Eosinophil Absolute 0.0 K/uL - <=0.7 11/16 [facility] AutoDiff* Auto Basophil Percent 0.4 % - <=3.0 11/16 [facility] AutoDiff* Auto Basophil Absolute 0.0 K/uL - <=0.2 11/16 [facility] AutoDiff* Sex assigned at Female 11/16 [facility] CBC WBC 10.2 K/uL 4.0 - 10.5 11/16 [facility] CBC RBC 4.46 M/mm3 3.50 - 5.50 11/16 [facility] CBC HGB 13.2 gm/dL 12.0 - 14.0 11/16 [facility] CBC HCT 38.2 % 36.0 - 47.0 11/16 [facility] CBC MCV 85.7 fL 77.0 - 96.0 11/16 [facility] CBC MCH 29.6 pg 27.0 - 32.0 11/16 [facility] CBC MCHC 35 gm/dL 32 - 36 11/16 [facility] CBC RDW 14 % 12 - 16 11/16 [facility] CBC PLT 274 K/uL 142 - 424 11/16 [facility] CBC Sex assigned at Female 11/16 [facility] CMP Sodium Level 135 mmol/L 136 - 145 11/16 [facility] CMP Potassium Level 3.6 mmol/L 3.5 - 5.1 11/16 [facility] Chloride Level 104 mmol/L 98 - 107 11/16 [facility] CMP CO2/Carbon Dioxide 23 mmol/L 21 - 31 11/16 [facility] Anion Gap 8 11/16 [facility] Glucose, Random 150 mg/dL - <=140 11/16 H [facility] CMP BUN 11 mg/dL 7 - 18 11/16 [facility] CMP Creatinine 0.8 mg/dL 0.6 - 1.2 11/16 [facility] BUN/Creat Ratio 13.8 15.0 - 24.0 11/16 L [facility] CMP Osmolality, Calculated 282 mOsm/L 11/16 [facility] Calcium Level 9.3 mg/dL 8.6 - 10.3 11/16 [facility] CMP Total Protein 7.2 gm/dL 6.0 - 8.3 11/16 [facility] CMP Albumin Level 4.1 gm/dL 3.5 - 5.7 11/16 [facility] Globulin Level 3.1 gm/dL 2.0 - 4.0 11/16 [facility] CMP A/G Ratio 1.3 11/16 [facility] CMP ALP 72 IntUnit/L 34 - 104 11/16 [facility] CMP ALT 36 units/L 5 - 52 11/16 [facility] CMP AST 21 IntUnit/L 13 - 39 11/16 [facility] Bilirubin, Total 0.4 mg/dL 0.0 - 1.0 11/16 [facility] CMP GFR - Non >60 mL/min/1.7 3m2 11/16 [facility] CMP GFR - >60 mL/min/1.7 3m2 11/16 NA [facility] CMP Sex assigned at Female 11/16 NA [facility] hCGQual BHCG/Pregnan cy, Serum QUAL Negative 11/16 NA [facility] hCGQual Sex assigned at Female 11/16 [facility] Lactic Lactic Acid Level 1.0 mmol/L 0.5 - 2.0 11/16 NA [facility] Lactic Sex assigned at Female 11/16 [facility] Lipase Lipase Level 12.0 units/L 11.0 - 82.0 11/16 NA [facility] Lipase Sex assigned at Female 11/16 [facility] Mg Magnesium Level 1.7 mg/dL 1.9 - 2.7 11/16 L [facility] Mg Sex assigned at Female 11/16 [facility] Trop Troponin I <0.05 ng/mL - <=0.05 11/16 NA < 0.05 Normal 0.05 - 0.39 Indeterminate > 0.39 Elevated [facility] Trop Sex assigned at Female 11/16 [facility] C Blood C Blood Final:No growth at 5 days.Sex assigned at :Fema le 11/16 Performed at: [facility], [facility], [place] [address], Aquarium Tank Attendant: : Sam bernal MD and Chaparro Salinas MD. [address] Patient From [facility]? Unknown 11/[address] Health Care Worker? Unknown 11/[address] SARS-CoV-2 by NAAT Negative Negative 11/15 NA Negative results should be treated as presumptive and, if inconsistent with clinical signs and symptoms or necessary for patient management, should be tested with different authorized or cleared molecular tests. Negative results do not preclude SARS-CoV-2 infection and should not be used as the sole basis for patient management decisions. Negative results should be considered in the context of a patient?s recent exposures, history and the presence of clinical signs and symptoms consistent with COVID-19.This test was performed under U.S. Food and Drug Administratio n (FDA) Emergency use Authorization (EUA). This test has been validated but the FDAs independent review of this validation is pending. [facility] [id number] Symptomatic per CDC? Unknown 11/15 NA [facility] [id number] SARS-CoV-2 First test? Unknown 11/15 NA [facility] [id number] SARS-CoV-2 Is the Patient Hospitalized ? Unknown 11/15 NA [facility] [id number] SARS-CoV-2 Is the Patient in ICU? Unknown 11/15 [facility] [id number] SARS-CoV-2 Is the Patient ? Unknown 11/15 NA [facility] [id number] Sex assigned at Female 11/15 [facility] StrpAR Streptococcu s Grp A Screen, Rapid Negative 11/15 [facility] StrpAR Culture Grp A Strep Confirmation Ordered 11/15 [facility] StrpAR Sex assigned at Female 11/15 [facility] C ThrGrpA C ThrGrpA Final:Cult ure negative for Groups A, C, and G Streptococ ci and Arcanobact erium .Sex assigned at :Fema le 11/15 [facility] POC UADip POCT - UR Color Dark yellow 09/20 NA Device Code: [address] 1Facility: 0075Location: ERSerial Number: [id number] r Code: Trevor garcia Name: Rachel Patel ([place])Deysi gallegos Lot: [id number] [facility] POC UADip POCT - UR Appearance Slightly Cloudy 09/20 [facility] POC UADip POCT - UR pH 6.0 5.0 - 8.0 09/20 NA [facility] POC UADip POCT - UR Specific Hope 1.025 ZZ 1.010 - 1.025 09/20 NA [facility] POC UADip POCT - UR Protein Negative mg/dL Negative 09/20 NA [facility] POC UADip POCT - UR Glucose Negative mg/dL Negative 09/20 NA [facility] POC UADip POCT - UR Ketones Negative mg/dL Negative 09/20 NA [facility] POC UADip POCT - UR Bilirubin Negative Negative 09/20 NA [facility] POC UADip POCT - UR Urobilinogen 0.2 mg/dL 0.0 - 1.0 09/20 NA [facility] POC UADip POCT - UR Blood Small Negative 09/20 * [facility] POC UADip POCT - UR Leuk Esterase Negative Negative 09/20 NA [facility] POC UADip POCT - UR Nitrates Negative Negative 09/20 [facility] POC UPreg POCT - hCG Urine Qual Negative ZZ 09/20 NA Device Code: [address] 4Facility: 0075Location: ERSerial Number: [id number] r Code: [id number] jose Name: Osmel Patel ([place]) Lot: [id number] [facility] UACSIf UA - Source/Colle ct Type Urine Clean Cat 09/20 [facility] UACSIf UA - Appearance Clear Clear 09/20 NA [facility] UACSIf UA - Color Yellow 09/20 NA [facility] UACSIf UA - pH 6 5 - 7 09/20 [facility] UACSIf UA - Specific Hope 1.026 ZZ 1.010 - 1.025 09/20 H [facility] UACSIf UA - Protein 30 mg/dL Negative 09/20 * [facility] UACSIf UA - Glucose Negative mg/dL Negative 09/20 NA [facility] UACSIf UA - Ketones Negative mg/dL Negative 09/20 NA [facility] UACSIf UA - Bilirubin Negative Negative 09/20 NA [facility] UACSIf UA - Blood Small Negative 09/20 * [facility] UACSIf UA - Urobilinogen Negative mg/dL Negative 09/20 NA [facility] UACSIf UA - Nitrites Negative Negative 09/20 NA [facility] UACSIf UA - Leukocyte Esterase Negative Negative 09/20 NA [facility] UACSIf Urine Culture Y/N No 09/20 NA [facility] UACSIf UA - WBC 1-2 /HPF 09/20 NA [facility] UACSIf UA - RBC 3-5 /HPF 09/20 * [facility] UACSIf UA - Bacteria Negative /HPF Negative 09/20 NA [facility] UACSIf UA - Epithelials, Squamous Few /LPF 09/20 NA [facility] UACSIf UA - Mucus Many /LPF 09/20 * [facility] C Urine C Urine Final:80,0 00 cfu/ml Mixed gram positive organisms . Three or more bacterial species isolated from urine indicating superficia l or fecal contaminat ion. 09/20 Performed at: [facility] [place] [address] Aquarium Tank Attendant: : Anayeli Gates MD [facility] A1C Glycated Hgbs - Hemoglobin A1C 5.7 % 4.0 - 5.6 04/04 H [facility] A1C Calculated Mean Blood Glucose 126 mg/dL 04/04 NA [facility] AutoDiff* Auto Neutrophil Percent 59.7 % 42.0 - 74.0 04/04 NA [facility] AutoDiff* Auto Neutrophil Absolute 4.1 K/uL 1.3 - 7.0 04/04 [facility] AutoDiff* Auto Lymphocyte Percent 29.7 % 19.0 - 46.0 04/04 [facility] AutoDiff* Auto Lymphocyte Absolute 2.0 K/uL 1.0 - 3.4 04/04 NA [facility] AutoDiff* Auto Monocyte Percent 7.5 % 2.3 - 11.2 04/04 [facility] AutoDiff* Auto Monocyte Absolute 0.5 K/uL 0.2 - 1.6 04/04 NA [facility] AutoDiff* Auto Eosinophil Percent 2.4 % - <=6.0 04/04 [facility] AutoDiff* Auto Eosinophil Absolute 0.2 K/uL - <=0.7 04/04 [facility] AutoDiff* Auto Basophil Percent 0.7 % - <=3.0 04/04 [facility] AutoDiff* Auto Basophil Absolute 0.0 K/uL - <=0.2 04/04 NA [facility] CBC WBC 6.9 K/uL 4.0 - 10.5 04/04 [facility] CBC RBC 4.64 M/mm3 3.50 - 5.50 04/04 [facility] CBC HGB 13.4 gm/dL 12.0 - 16.0 04/04 [facility] CBC HCT 39.7 % 35.0 - 47.0 04/04 [facility] CBC MCV 85.7 fL 77.0 - 96.0 04/04 [facility] CBC MCH 29.0 pg 27.0 - 32.0 04/04 [facility] CBC MCHC 33.8 gm/dL 32.0 - 36.0 04/04 [facility] CBC RDW 13.5 % 12.0 - 16.0 04/04 NA [facility] CBC PLT 301 K/uL 142 - 424 04/04 NA [facility] CMPF Sodium Level 139 mmol/L 136 - 145 04/04 NA [facility] CMPF Potassium Level 4.0 mmol/L 3.5 - 5.1 04/04 [facility] mmol/L 98 - 107 04/04 NA [facility] CMPF CO2/Carbon Dioxide 28 mmol/L 21 - 31 04/04 NA [facility] CMPF Anion Gap 6 04/04 NA [facility] CMPF Glucose, Fasting 106 mg/dL 70 - 105 04/04 H [facility] CMPF BUN 20 mg/dL 7 - 25 [facility]/dL 0.6 - 1.2 04[facility]04 [facility]/Creat Ratio 25.0 15.0 - 24.0 04/04 H [facility] CMPF Osmolality, Calculated 291 mOsm/L 04/04 NA [facility] CMPF Calcium Level 9.2 mg/dL 8.6 - 10.3 04/04 [facility] Protein 7.4 gm/dL 6.0 - 8.3 04/04 [facility] CMPF Albumin Level 4.2 gm/dL 3.5 - 5.7 04/04 [facility] CMPF Globulin Level 3.2 gm/dL 2.0 - 4.0 04/04 [facility] CMPF A/G Ratio 1.3 04/04 [facility] CMPF ALP 63 IntUnit/L 34 - 104 04/04 [facility] CMPF ALT 48 units/L 7 - 52 04/04 [facility] CMPF AST 29 IntUnit/L 13 - 39 04/04 NA [facility] CMPF Bilirubin, Total 0.4 mg/dL 0.0 - 1.0 04/04 [facility] - Non >60 mL/min/1.7 3m2 04/04 NA Impaired kidney function is indicated by a GFR of <60 mL/min/1.73m2 . The equation used has not been validated for use with persons under 18 or over 70 years of age, women, patients with serious co-morbid conditions, or persons with extremes of body size, muscle mass or nutritional status. [facility] CMPF GFR - >60 mL/min/1.7 3m2 04/04 NA [facility] Estradiol Estradiol Level 62.0 pg/mL 04/04 NA Ranges of days from Reference Interval hLH peak (day 0)Non-pregnan t femalesEarly Follicular -14 to -10 22.4-115 pg/mLNon-preg nant femalesMid Follicular -9 to -4 25.0-115 pg/mLNon-preg nant femalesOvulat ory Peak 0 32.1-517 pg/mLNon-preg nant femalesMid Luteal +4 to +11 36.5-246 pg/mLPost-Men opausalFemale s Not on hormone NA <25.1 pg/mLTherapyM ales NA <15.0-31.5 pg/mLPediatri c Age Range (years) Reference IntervalPedia tric male And female 0 to <1 <38.2 pg/mLPre-pube rty female 1 to <12 <16.0 pg/mLPre-pube rty female 12 to <19 <196 pg/mLPre-pube rty male 1 to <12 <15.0 pg/mLPuberty male 12 to <19 <34.8 pg/mL [facility] FSH FSH Follicle Stim Hormone Level 7.85 mIU/mL 04/04 NA This test is performed on the TreeRing Access 2 Immunoassay Module. Please note new reference ranges.Sample Category Range mIU/mLFemales :Normally Menstruating: Mid-Follicula r Phase: 3.85-8.78 Mid-Cycle Peak: 4.54-22.51 Mid-Luteal Phase: 1.79-5.12Post -Menopausal: 16.74-113.59M ales: 1.27-19.26 [facility] LH LH Lutenizing Hormone Level 8.00 mIU/mL 04/04 NA This test is performed on the TreeRing Access 2 Immunoassay Module. Please note new reference ranges.Female s:Normally Menstruating: Mid-Follicula r Phase: 2.12-10.89 mIU/mL Mid-Cycle Peak: 19.18-103.03 mIU/mL Mid-Luteal Phase: 1.20-12.86 mIU/mLPost-Me nopausal: 10.87-58.64 mIU/mLMales: 1.24-8.62 mIU/mL [facility] LipidP Total Cholesterol 227 mg/dL 0 - 200 04/04 H [facility] LipidP Triglyceride s 226 mg/dL 30 - 200 04/04 H [facility] LipidP HDL Cholesterol 38.2 mg/dL 23.0 - 92.0 04/04 NA [facility] LipidP LDL Cholesterol, Calc 143 mg/dL 0 - 100 04/04 H [facility] LipidP Total Chol/HDL Ratio 5.9 ZZ 04/04 NA [facility] LipidP LDL/HDL Ratio 3.8 04/04 NA [facility] LipidP VLDL Cholesterol, Calc 45 mg/dL 04/04 NA [facility] TSH3 TSH Thyroid Stim Hormone 3RD Generation 1.47 mIU/mL 0.45 - 5.33 04/04 NA [facility] VitD25 Vitamin D, 25-Hydroxy 12 ng/mL 04/04 NA Vitamin D Status RangeDeficien cy <20 ng/mLInsuffic iency 20-30 ng/mLSufficie ncy 30-100 ng/mLToxicity >100 ng/mL [facility] POC UADip POCT - UR Color Yellow 06/02 NA Device Code: 75 EDU.1Facility : [id number]: ERSerial Number: [id number] r Code: PORTERVKelsey garcia Name: Michlele Mcgill RDisposable Lot: [id number] [facility] POC UADip POCT - UR Appearance Clear 06/02 NA [facility] POC UADip POCT - UR pH 6.0 5.0 - 8.0 06/02 NA [facility] POC UADip POCT - UR Specific Hope >=1.030 ZZ 1.010 - 1.025 06/02 * [facility] POC UADip POCT - UR Protein Negative mg/dL Negative 06/02 NA [facility] POC UADip POCT - UR Glucose Negative mg/dL Negative 06/02 NA [facility] POC UADip POCT - UR Ketones Negative mg/dL Negative 06/02 NA [facility] POC UADip POCT - UR Bilirubin Negative Negative 06/02 NA [facility] POC UADip POCT - UR Urobilinogen 0.2 mg/dL 0.0 - 1.0 06/02 NA [facility] POC UADip POCT - UR Blood Moderate Negative 06/02 * [facility] POC UADip POCT - UR Leuk Esterase Trace Negative 06/02 * [facility] POC UADip POCT - UR Nitrates Negative Negative 06/02 NA [facility] UACSIf UA - Source/Colle ct Type Urine Voided 06/02 NA [facility] UACSIf UA - Appearance Hazy Clear 06/02 * [facility] UACSIf UA - Color Yellow 06/02 NA [facility] UACSIf UA - pH 5 5 - 7 06/02 NA [facility] UACSIf UA - Specific Hope 1.029 ZZ 1.010 - 1.025 06/02 H [facility] UACSIf UA - Protein Negative mg/dL Negative 06/02 NA [facility] UACSIf UA - Glucose Negative mg/dL Negative 06/02 NA [facility] UACSIf UA - Ketones Negative mg/dL Negative 06/02 NA [facility] UACSIf UA - Bilirubin Negative Negative 06/02 NA [facility] UACSIf UA - Blood Small Negative 06/02 * [facility] UACSIf UA - Urobilinogen Negative mg/dL Negative 06/02 NA [facility] UACSIf UA - Nitrites Negative Negative 06/02 NA [facility] UACSIf UA - Leukocyte Esterase Small Negative 06/02 * [facility] UACSIf Urine Culture Y/N Yes 06/02 NA [facility] UACSIf UA - WBC 3-5 /HPF 06/02 NA [facility] UACSIf UA - RBC 3-5 /HPF 06/02 * [facility] UACSIf UA - Bacteria Few /HPF Negative 06/02 * [facility] UACSIf UA - Epithelials, Squamous Few /LPF 06/02 NA [facility] UACSIf UA - Mucus Few /LPF 06/02 NA [facility] C Urine C Urine Final:>100 ,000 cfu/ml Escherichi a coliORGANI SM:EC 06/02 Performed at: [facility], [address] [place] [phone], Aquarium Tank Attendant: Anayeli Gates MD [facility] POC UPreg POCT - hCG Urine Qual Negative ZZ 08/29 NA [facility] POC UADip POCT - UR Color Yellow 08/29 NA [facility] POC UADip POCT - UR Appearance Clear 08/29 NA [facility] POC UADip POCT - UR pH 5.5 5.0 - 8.0 08/29 NA [facility] POC UADip POCT - UR Specific Hope >=1.030 ZZ 1.010 - 1.025 08/29 * [facility] POC UADip POCT - UR Protein 30 mg/dL Negative 08/29 * [facility] POC UADip POCT - UR Glucose Negative mg/dL Negative 08/29 NA [facility] POC UADip POCT - UR Ketones Negative mg/dL Negative 08/29 NA [facility] POC UADip POCT - UR Bilirubin Small Negative 08/29 * [facility] POC UADip POCT - UR Urobilinogen 0.2 mg/dL 0.0 - 1.0 08/29 NA [facility] POC UADip POCT - UR Blood Moderate Negative 08/29 * [facility] POC UADip POCT - UR Leuk Esterase Negative Negative 08/29 NA [facility] POC UADip POCT - UR Nitrates Negative Negative 08/29 NA [facility] UACSIf UA - Source/Colle ct Type Urine Voided 08/29 NA [facility] UACSIf UA - Appearance Hazy Clear 08/29 * [facility] UACSIf UA - Color Yellow 08/29 NA [facility] UACSIf UA - pH 5 5 - 7 08/29 NA [facility] UACSIf UA - Specific Hope 1.035 ZZ 1.010 - 1.025 08/29 H [facility] UACSIf UA - Protein 30 mg/dL Negative 08/29 * [facility] UACSIf UA - Glucose Negative mg/dL Negative 08/29 NA [facility] UACSIf UA - Ketones Negative mg/dL Negative 08/29 NA [facility] UACSIf UA - Bilirubin Negative Negative 08/29 NA [facility] UACSIf UA - Blood Moderate Negative 08/29 * [facility] UACSIf UA - Urobilinogen Negative mg/dL Negative 08/29 NA [facility] UACSIf UA - Nitrites Negative Negative 08/29 NA [facility] UACSIf UA - Leukocyte Esterase Negative Negative 08/29 NA [facility] UACSIf Urine Culture Y/N Yes 08/29 NA [facility] UACSIf UA - WBC 3-5 /HPF 08/29 NA [facility] UACSIf UA - RBC 6-10 /HPF 08/29 * [facility] UACSIf UA - Bacteria Few /HPF Negative 08/29 * [facility] UACSIf UA - Epithelials, Squamous Moderate /LPF 08/29 * [facility] UAIf UA - Mucus Few /LPF 08/29 NA [facility] C Urine C Urine Final:>100 ,000 cfu/ml Escherichi a coliORGANI SM:EC 08/29 Performed at: [facility], [address] [place] [id number], Aquarium Tank Attendant: Anayeli Gates MD [facility] MumpAbG Mumps Virus Antibody IgG <5.0 08/04 NA INTERPRETIVE INFORMATION: Mumps Ab, IgG by GURMEET 8.9 AU/mL or less .... Negative - No significant level of detectable IgG mumps virus antibody 9.0-10.9 AU/mL ....... Equivocal - Repeat testing in 10-14 days may be helpful 11.0 AU/mL or greater: Positive - IgG antibody to mumps virus detected, which may indicate a current or past exposure/ immunization to mumps virus. The best evidence for current infection is a significant change on two appropriately timed specimens, where both tests are done in the same laboratory at the same time.Performe d by [facility], [address] [place] [id number] [email or web address] William calle MD - Lab. Director [facility] RubAbG Rubella Antibody, IgG 10.2 IntUnit/mL 08/04 NA This test is performed on the TreeRing Access 2 Immunoassay Module. Please note new reference ranges.>14.9 IntUnit/mL Kxnvmq23.0-14 .9 IntUnit/mL Equivocal-Rep eat testing in 10-14 days may be helpful.<10.0 IntUnit/mL Non-ImmuneThe best evidence for current infection is a significant change on two appropriately timed specimens, where both tests are done in the same laboratory at the same time. [facility] RubeoAbG Rubeola (Measles) Antibody, IgG 13.5 08/04 NA INTERPRETIVE INFORMATION: Measles (Rubeola) Antibody, IgG 24.9 AU/mL or less........ Negative - No significant level of detectable measles (rubeola) IgG antibody. 25.0-29.9 AU/mL .......... Equivocal - Repeat testing in 10-14 days may be helpful. 30.0 AU/mL or greater .... Positive - IgG antibody to measles (rubeola) detected which may indicate a current or past exposure/immu nization to measles (rubeola).The best evidence for current infection is a significant change on two appropriately timed specimens, where both tests are done in the same laboratory at the same time.Performe d by [facility], [address] [place] [address] [email or web address] William calle MD - Lab. Director [facility] Bayron ThrGrpA C ThrGrpA Final:Cult ure negative for Group A Streptococ cus Culture positive for Group C Streptococ cus 06/29 Performed at: [facility], [address] [place] [id number], Aquarium Tank Attendant: Anayeli Gates MD [facility] StrpAR Streptococcu s Grp A Screen, Rapid Negative 06/29 NA [facility] StrpAR Culture Grp A Strep Confirmation Ordered 06/29 NA [facility] Diagnostic Reports Report Value Date Source CT Abdomen/Pelvis WO Contrast Clinical History RT flank pain, microscopic hematuria, Neg hCg. -NS Comparison: None Technique: Axial images are acquired from the domes of the diaphragm to the pubic symphysis. Data is reconstructed in the sagittal and coronal planes. All CT scans at this medical facility are performed using dose modulation techniques as appropriate to a performed exam including the following: Automated exposure control was utilized; adjustment of the mA and/or kV according to patient size; and use of iterative reconstruction technique. All CT studies are reported to the Dose Index Registry of the [employer]. Without Contrast Radiation Dose: CTDI (mGy): 22.9; DLP (mGy-cm): 1086.1 EVY CAIN, [id number] Findings: Lung bases: There is no focal consolidation. Liver: low density. Gallbladder: absent. Kidneys: No kidney stone or hydronephrosis. left renal cyst 3.3 x 3.9 cm Spleen: Unremarkable. Pancreas: Unremarkable. Adrenals: Unremarkable. Small bowel: No evidence of bowel obstruction. No mesenteric inflammation. Large bowel: No obstruction or inflammation. Appendix: not seen. Bladder: Unremarkable Reproductive: Unremarkable Lymphadenopathy: No enlarged lymph nodes. Bones: No displaced fracture. Peritoneum: No free air. No free fluid. Umbilical hernia Metallic artifact in the left gluteus olive muscle Impression: 1. No kidney stone or hydronephrosis. Simple cyst in the left kidney measuring 3.3 x 3.9 cm. 2. Status post cholecystectomy 3. Low density liver suggesting steatosis 4. No bowel obstruction 5. Small umbilical hernia 6. No bladder stone or inflammation. This report was electronically signed by Felipa Akhtar MD on 10/26/2022 9:49:56 PM. 10/27/2022 [facility] Chest 2 Vw Reason for Exam: [facility] Pain Ordering Provider: Quincy Apodaca, EXAM: Chest 2 Vw at 1857 hours Views: PA and lateral Comparison Exam(s): 03/24/2021 FINDINGS: The lungs are well expanded and show no abnormal opacities. There is no blunting of the costophrenic sulci or pneumothorax. The cardiomediastinal silhouette and pulmonary vasculature are unremarkable. No bony or soft tissue abnormalities are noted. There has been no significant interval change. IMPRESSION: Normal chest exam. 03/11/2022 [facility] Chest 1 Vw Portable Reason for Exam: [facility] Pain Ordering Provider: Raphael Romero, EXAM: Chest 1 Vw Portable at 1824 hours Views: Upright AP Comparison Exam(s): 04/04/2018 FINDINGS: The lungs are well expanded and show no abnormal opacities. There is no blunting of the lateral costophrenic sulci or pneumothorax. The cardiomediastinal silhouette and pulmonary vasculature are unremarkable. No bony or soft tissue abnormalities are noted. There has been no significant interval change. IMPRESSION: Normal AP chest exam. 03/25/[address] [facility] [address] Abdomen/Pelvis WO Contrast PROCEDURE: CT Abdomen/Pelvis WO Contrast EXAM DATE: 11/15/2020 8:46 PM ORDERING CLINICIAN: Josh Becker MD INDICATION: Abdominal Pain COMPARISON: None. Procedure: A crib clerk view of the abdomen and pelvis was constructed. Axial scans were obtained through the abdomen and pelvis without contrast administration. Automated exposure control with adjustment of the mA and/or kV according to patient size, along with iterative reconstruction techniques, were utilized for optimal dose reduction. CT abdomen findings: The lung bases are clear. There is fatty infiltration of the liver, without focal abnormality. The gallbladder is surgically absent. The spleen is normal. There is no ascites. There is a 3.4 cm left renal cyst. The right kidney and adrenal glands are within normal limits. The pancreas is unremarkable. There is no retroperitoneal or mesenteric lymphadenopathy. The vascular structures of the abdomen are normal. There is small fat-containing umbilical hernia. CT pelvis findings: There is wall thickening and adjacent stranding in the ascending colon. The bowel is otherwise normal. The uterus and adnexal regions are within normal limits. There is a metallic foreign body in the left gluteus olive muscle.. There is no pelvic mass. The bladder is normal. Impression: Wall thickening and adjacent stranding in the ascending colon consistent with colitis. Fatty infiltration of the liver. Cholecystectomy. Left renal cyst. Small fat-containing umbilical hernia. CTDI (vol): 16.51 mGy DLP (mGy-cm): 843.44 mGy Dictated and Signed by: Juan Vicente MD on 11/16/2020 8:05 AM 11/16/2020 [facility] MRI Cervical Spine WO Contrast EXAM: MRI Cervical Spine WO Contrast ORDERING PROVIDER: AUDREY Renae COMPARISON: MRI cervical spine 04/23/2014. INDICATION: cervical spinal stenosis. TECHNIQUE: Only the sagittal T2 sequence could be obtained (the exam usually considered of 5 sequences). The patient did not wish to proceed with the exam due to no noise/claustrophobia. FINDINGS: The visualized cerebellum and brainstem are unremarkable in appearance. The visualized spinal cord is normal in signal. There is mild reversal the normal cervical lordosis. Evaluation of marrow signal demonstrates mild multilevel endplate degenerative changes. There is no focal signal abnormality within the disc spaces. At C2-C3, there is no significant disc bulging, spinal stenosis or neural foraminal narrowing. At C3-C4, there is no significant disc bulging, spinal stenosis or neural foraminal narrowing. At C4-C5, there is no significant disc bulging, acquired spinal stenosis or neural foraminal narrowing. 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 At C5-C6, there is no significant disc bulging, acquired spinal stenosis or neural foraminal narrowing. 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 At C6-C7, there is no significant disc bulging, acquired spinal stenosis or neural foraminal narrowing. 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 At C7-T1, there is no significant disc bulging, spinal stenosis or neural foraminal narrowing. IMPRESSION: 1. Limited examination with only the sagittal T2 sequence obtained. The exam was ended early secondary to patient preference. 2. Mild reversal the normal cervical lordosis and mild multilevel endplate degenerative changes. 2. 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 05/02/2020 [facility] Finger Rt Min 2 Vw EXAM: Finger Rt Min 2 Vw ORDERING PROVIDER: Valery Herman NP COMPARISON: None. INDICATION: Trauma. TECHNIQUE: 3 views of the right thumb. FINDINGS: There is no evidence of acute fracture or dislocation. There are no focal bone lesions seen. The joint spaces are within normal limits. IMPRESSION: No evidence of acute fracture or dislocation. 07/16/2018 [facility] Chest 2 Vw Reason for Exam: Cou gh Ordering Provider: BA Shell EXAM: Chest 2 Vw Views: PA and lateral Comparison Exam(s): Prior chest x-ray of March 11, 2012 FINDINGS:The lungs are well expanded and show no abnormal opacities. There is no blunting of the costophrenic sulci or pneumothorax. The cardiomediastinal silhouette and pulmonary vasculature are unremarkable. No bony or soft tissue abnormalities are noted. IMPRESSION: No acute cardiopulmonary disease. 04/04/2018 [facility] Consultation Notes Results Value Date Source ED Physician Notes Patient: ROSE CAIN Age: 43 years Legal Sex: FEMALE : 1980 Chief Complaint Pt c/o dysuria, frequency and urgency for approx 1-2 weeks. Pt states her and her daughter have been doing multiple long road trips lately. Mode of Arrival Walk-In History (History of Present Illness) History as per the patient. She is complaining of UTI symptoms. She says she gets UTIs recurrently. Her last 1 was several months ago and treated with Cipro. She is complaining of dysuria and frequency and urinating small amounts. She says the urine is darker in color though she says she is eating and drinking normally. She denies any fevers or chills, no nausea or vomiting. She says her symptoms have been for a couple of weeks. Her review of systems is otherwise negative. Her symptoms are moderate increased with urination no real alleviating factors. _ _ Physical Exam Triage Vital Signs 12/24/23 23:06 T: 97.0 F HR: 76 RR: 18 BP: 125/67 SPO2: 97% O2 Delivery: Room air HT: 152.40 cm WT: 100.5 kg(Dose Calc Wt.) WT: 100.5 kg BMI: 43.27 kg/m2 General appearance: No acute distress, nontoxic HEENT: Normocephalic/atraumatic, neck supple Cardiac: Regular. No murmurs. There is no peripheral edema, cyanosis, or pallor. Lungs: Clear to auscultation without rales, rhonchi, or wheezing. Easy unlabored respirations. Musculoskeletal: No joint deformity, erythema or swelling. Skin: No rashes, warm and dry. Neurologic: Alert and appropriate. Psychiatric: Cooperative. ED Course, Data, and Interventions Patient is nontoxic no acute distress. She is complaining of dysuria and frequency off and on for several weeks. She has a history of recurrent UTIs. Her urine dip today is positive for UTI and she has symptoms consistent with UTI. Will treat for this. She denies any fevers or chills, her vital signs are stable she is afebrile no signs of sepsis. I am not concerned for sepsis or pyelonephritis at this time. Further workup/IV antibiotics/hospitalization not indicated. I discussed treatment with the patient she verbalizes understanding and is happy with the plan. She feels Keflex does not work for her anymore so will not use that. Orders Septra DS 800-160 mg, 1 Tab, ORAL, ONCE EKG. EKG results below were independently viewed and interpreted by me. No Qualifying Data Medical Decision Making _ Diagnosis UTI Condition _Stable Disposition _Discharge Prescriptions Current medications were reviewed. Prescribed Medications 12/24/2023 23:55 PDT Septra DS oral tablet, = 1 Tab, ORAL, BID, X 10 Day(s), # 20 Tab, Indication= UTI, complicated, 0 Refill(s), Acute, Pharmacy: [id number], 152.4, cm, 12/24/23 23:06:00 PDT, Height/Length (cm), 100.5, kg, 12/24/23 23:06:00 PDT, Dose calculation weight (kg) Patient Education Urinary Tract Infection, Adult Follow-Up Provider: Bird White Date: Within 1-2 days Comment: Follow up with your doctor in 2-3 days if not better. Return if worse, no imrpovement or new symptoms. Address: [address] [place] [id number] [facility] (1) [place] Information LOLITA JACINTO/CAR TRIMMER/PA Time Patient Seen face to face: Date and time 12/24/2023 23:11:19 Past Medical History Active Problems No active problems Social History *Alcohol Screen How often do you have a drink containing alcohol? Never (0). 06/03/2019 *Substance Abuse Screen Do you have concerns about substance abuse for yourself or in your household? No. 06/03/2019 *Tobacco Use Screen Is there a smoker in the household? No. Allergies Demerol Latex Phenergan Pyridium Toradol Vicodin doxycycline fentanyl lidocaine prednisone Home Medications albuterol CFC free 90 mcg/inh Inhaler, 2 Puff, INH, Q4H, PRN lamoTRIgine 25 mg oral tablet, 25 mg, 1 Tab, ORAL, DAILY Multivitamins oral capsule, 1 Cap, ORAL, DAILY naproxen 500 mg oral tablet, 500 mg, 1 Tab, ORAL, BID, PRN ondansetron 4 mg oral tablet, disintegrating, 1 DT_Tab, ORAL, Q8H Periogard 0.12% mucous membrane liquid, 0.018 gm, 15 mL, ORAL, BID, 1 refills Proventil HFA 90 mcg/inh inhalation aerosol, 1 Puff, INH, QID, PRN traMADol 50 mg oral tablet, 50 mg, 1 Tab, ORAL, Q4H, PRN Tylenol Tylenol with Codeine #3 oral tablet, 1 Tab, ORAL, Q4H, PRN Vitamin C Vitamin D, 400 IntUnit, ORAL, DAILY Zofran ODT 4 mg oral tablet, disintegrating, 4 mg, 1 Tab, ORAL, QID [address]1930-3 Female 12/25/2023 [facility] ED Physician Notes Patient: ROSE CAIN Age: 41 years Legal Sex: FEMALE : 1980 Chief Complaint Pt c/o dysuria x 1 month and flank pain for 2 days. states dysuria Mode of Arrival Walk-In History (History of Present Illness) This is a 41yo woman with a h/o epilepsy presenting to the ER with 1 week of dysuria, urgency, and frequency For the past 2 days she has had worsening dysuria and feels some pain in her low back on the left No hematuria No vaginal discharge, no dyspareunia, reports she is sexually active with only and not concerned for STDs No nausea or vomiting No fevers or chills Feels like prior UTIs and she is worried for a kidney infection Eating and drinking normally No chest pain or dyspnea No sore throat or mouth pain No rashes _ Documentation Reviewed: nursing notes, prior visits _ Physical Exam Triage Vital Signs 10/26/22 19:48 T: 97.8 F HR: 79 RR: 17 BP: 136/78 SPO2: 98% O2 Delivery: Room air HT: 152.4 cm WT: 98.9 kg(Dose Calc Wt.) WT: 98.9 kg BMI: 42.58 kg/m2 Constitutional: well appearing, well developed,Speaking in full sentences Head: atraumatic, normocephalic, nonasal discharge, moist mucosal membranes Eyes: EOMI, normalconjunctiva, normal sclera Cardiovascular: normal rate, regular rhythm, no murmur, no gallops, no cyanosis or pallor, no peripheral edema, warm and well perfused Respiratory: CTA, no rales, no rhonchi, no wheezing, speaking in full sentences, good air movement bilaterally Gastrointestinal: soft, non-distended, no tenderness to palpation, no guarding, no rebound Extremities: no bony deformity, full ROM of major joints Neurological: oriented x4, awake, face symmetric, speech clear Skin: warm, dry, no rashes, no wounds Psychiatric: normal affect, good judgment ED Course, Data, and Interventions This is a well-appearing patient presenting to the emergency department with a week of symptoms consistent with a lower urinary tract infection, she also has some pain migrating up towards the left flank but no nausea or vomiting, no fevers. Considered but feel unlikely pyelonephritis based on history and exam. Labs returned with no leukocytosis. Her urine is not suggestive of infection though there are many bacteria, just a few red blood cells and no nitrates or leuk esterase on the formal urinalysis. Urine culture was sent. I considered STD and gonorrhea and Chlamydia testing were sent but the patient is low risk by history and declines pelvic exam and I think STD less likely. CT was done to rule out nephrolithiasis. She had some nonacute findings that I advised her of that she will follow-up with her primary care doctor. Given her lower urinary tract symptoms and prior UTI we will treat her empirically for a UTI because there are many bacteria on the urinalysis which is actually a fairly clean-catch, but this was only after discussion with the patient about option to wait for culture results and she wants to try treating empirically and understands that this may not be a true UTI. She will follow-up closely with her primary care doctor to explore alternative explanations for dysuria. We discussed return to ER precautions. Orders cephalexin, 500 mg, 2 Cap, ORAL, ONCE Diagnostics. Imaging results below were independently viewed and interpreted by me. Computerized Tomography Result Type: CT Abdomen/Pelvis WO Contrast Result Date: October 26, 2022 21:28 PDT Reason For Exam: Kidney Stone REPORT: Clinical HistoryRT flank pain, microscopic hematuria, Neg hCg. -NSComparison:NoneTechnique: Axial images are acquired from the domes of the diaphragm to the pubic symphysis. Data is reconstructed in the sagittal and coronal planes.All CT scans at this medical facility are performed using dose modulation techniques as appropriate to a performed exam including the following: Automated exposure control was utilized; adjustment of the mA and/or kV according to patient size; and use of iterative reconstruction technique.All CT studies are reported to the Dose Index Registry of the [employer]. Without ContrastRadiation Dose: CTDI (mGy): 22.9; DLP (mGy-cm): 1086.1AEVY IRVING, [id number] Findings: Lung bases: There is no focal consolidation.Liver: low density. Gallbladder: absent. Kidneys: No kidney stone or hydronephrosis. left renal cyst 3.3 x 3.9 cmSpleen: Unremarkable.Pancreas: Unremarkable.Adrenals: Unremarkable. Small bowel: No evidence of bowel obstruction. No mesenteric inflammation. Large bowel: No obstruction or inflammation. Appendix: not seen. Bladder: Unremarkable Reproductive: Unremarkable Lymphadenopathy: No enlarged lymph nodes. Bones: No displaced fracture. Peritoneum: No free air. No free fluid. Umbilical herniaMetallic artifact in the left gluteus olive muscle Impression: 1. No kidney stone or hydronephrosis. Simple cyst in the left kidney measuring 3.3 x 3.9 cm.2. Status post cholecystectomy3. Low density liver suggesting steatosis4. No bowel obstruction5. Small umbilical hernia6. No bladder stone or inflammation.This report was electronically signed by Felipa Akhtar MD on 10/26/2022 9:49:56 PM. Medical Decision Making _ Diagnosis Dysuria, possible lower UTI Condition _Stable Disposition _Discharge to home Prescriptions Current medications were reviewed and updated. Prescribed Medications 10/26/2022 23:12 PDT cephalexin 500 mg oral capsule, = 1 Cap, ORAL, QID, X 5 Day(s), # 20 Cap, Indication= UTI, uncomplicated, 0 Refill(s), Acute, Pharmacy: [facility] #[id number], 152.4, cm, 10/26/22 19:48:00 PDT, Height/Length (cm), 98.9, kg, 10/26/22 19:48:00 PDT, Dose calculation weight (kg) Patient Education Urinary Tract Infection, Adult Follow-Up Provider: Bird White Date: Within 1-2 days Comment: Please take the antibiotics as prescribed for a urinary tract infection. Return to the ER for severe pain, vomiting, fevers, abdominal pain, or any other new or concerning symptoms. Please follow up with your doctor about your CT scan which showed fatty liver, a cyst on your left kidney, and a small umbilical hernia (all of which are unrelated to your pain today). Address: [address] [place] [address] [facility] (1) MSEI Information SYLVESTERI MD/CAR TRIMMER/PA Time Patient Seen face to face: Date and time 10/26/2022 19:44:41 Past Medical History Active Problems No active problems Social History *Alcohol Screen How often do you have a drink containing alcohol? Never (0). 06/03/2019 *Substance Abuse Screen Do you have concerns about substance abuse for yourself or in your household? No. 06/03/2019 *Tobacco Use Screen Is there a smoker in the household? No. Allergies Demerol Latex Phenergan Pyridium Toradol Vicodin doxycycline fentanyl lidocaine prednisone Home Medications albuterol CFC free 90 mcg/inh Inhaler, 2 Puff, INH, Q4H, PRN lamoTRIgine 25 mg oral tablet, 25 mg, 1 Tab, ORAL, DAILY Multivitamins oral capsule, 1 Cap, ORAL, DAILY naproxen 500 mg oral tablet, 500 mg, 1 Tab, ORAL, BID, PRN ondansetron 4 mg oral tablet, disintegrating, 1 DT_Tab, ORAL, Q8H Periogard 0.12% mucous membrane liquid, 0.018 gm, 15 mL, ORAL, BID, 1 refills Proventil HFA 90 mcg/inh inhalation aerosol, 1 Puff, INH, QID, PRN traMADol 50 mg oral tablet, 50 mg, 1 Tab, ORAL, Q4H, PRN Tylenol Tylenol with Codeine #3 oral tablet, 1 Tab, ORAL, Q4H, PRN Vitamin C Vitamin D, 400 IntUnit, ORAL, DAILY Zofran ODT 4 mg oral tablet, disintegrating, 4 mg, 1 Tab, ORAL, QID Lab Results Labs All 24H Lab Results Date POCT - hCG Urine Qual Pregnanc Negative - 10/26/22 20:05 PDT POCT - UR Appearance Cloudy 10/26/22 20:06 PDT POCT - UR Color Yellow 10/26/22 20:06 PDT Auto Neutrophil Percent 56.9 % 10/26/22 21:48 PDT Auto Neutrophil Absolute 4.5 K/uL 10/26/22 21:48 PDT Auto Lymphocyte Percent 32.2 % 10/26/22 21:48 PDT Auto Lymphocyte Absolute 2.5 K/uL 10/26/22 21:48 PDT Auto Monocyte Percent 8.5 % 10/26/22 21:48 PDT Auto Monocyte Absolute 0.7 K/uL 10/26/22 21:48 PDT Auto Basophil Percent 0.4 % 10/26/22 21:48 PDT Auto Basophil Absolute 0.0 K/uL 10/26/22 21:48 PDT Auto Eosinophil Percent 2.0 % 10/26/22 21:48 PDT Auto Eosinophil Absolute 0.2 K/uL 10/26/22 21:48 PDT Urine Culture Y/N Yes 10/26/22 19:59 PDT WBC 7.9 K/uL 10/26/22 21:48 PDT RBC 4.33 M/mm3 10/26/22 21:48 PDT HGB 12.5 gm/dL 10/26/22 21:48 PDT HCT 36.9 % 10/26/22 21:48 PDT MCV 85.3 fL 10/26/22 21:48 PDT MCH 29.0 pg 10/26/22 21:48 PDT MCHC 34.0 gm/dL 10/26/22 21:48 PDT RDW 13.3 % 10/26/22 21:48 PDT PLT 310 K/uL 10/26/22 21:48 PDT Sodium Level 138 mmol/L 10/26/22 21:48 PDT Potassium Level 3.6 mmol/L 10/26/22 21:48 PDT Chloride Level 103 mmol/L 10/26/22 21:48 PDT CO2/Carbon Dioxide 29 mmol/L 10/26/22 21:48 PDT Anion Gap 6 10/26/22 21:48 PDT Glucose, Random 109 mg/dL 10/26/22 21:48 PDT BUN 18 mg/dL 10/26/22 21:48 PDT Creatinine 0.8 mg/dL 10/26/22 21:48 PDT BUN/Creat Ratio 22.5 10/26/22 21:48 PDT Osmolality, Calculated 288 mOsm/L 10/26/22 21:48 PDT Calcium Level 8.8 mg/dL 10/26/22 21:48 PDT Total Protein 6.8 gm/dL 10/26/22 21:48 PDT Albumin Level 3.9 gm/dL 10/26/22 21:48 PDT Globulin Level 2.9 gm/dL 10/26/22 21:48 PDT A/G Ratio 1.3 10/26/22 21:48 PDT Bilirubin, Total 0.2 mg/dL 10/26/22 21:48 PDT AST 22 IntUnit/L 10/26/22 21:48 PDT ALT 36 units/L 10/26/22 21:48 PDT ALP 70 IntUnit/L 10/26/22 21:48 PDT UA - Source/Collect Type Urine Clean Cat 10/26/22 19:59 PDT UA - Color Yellow 10/26/22 19:59 PDT UA - Appearance Clear 10/26/22 19:59 PDT UA - Specific Hope 1.026 - (HIGH) 10/26/22 19:59 PDT UA - pH 5 10/26/22 19:59 PDT UA - Protein Negative mg/dL 10/26/22 19:59 PDT UA - Glucose Negative mg/dL 10/26/22 19:59 PDT UA - Ketones Negative mg/dL 10/26/22 19:59 PDT UA - Bilirubin Negative 10/26/22 19:59 PDT UA - Blood Small (ABNORMAL) 10/26/22 19:59 PDT UA - Urobilinogen Negative mg/dL 10/26/22 19:59 PDT UA - Nitrites Negative 10/26/22 19:59 PDT UA - Leukocyte Esterase Negative 10/26/22 19:59 PDT UA - WBC 1-2 /HPF 10/26/22 19:59 PDT UA - RBC 3-5 /HPF (ABNORMAL) 10/26/22 19:59 PDT UA - Epithelials, Squamous Few /LPF 10/26/22 19:59 PDT UA - Bacteria Many /HPF (ABNORMAL) 10/26/22 19:59 PDT UA - Mucus Few /LPF 10/26/22 19:59 PDT POCT - UR Specific Hope >=1.030 - (ABNORMAL) 10/26/22 20:06 PDT POCT - UR pH 6.0 10/26/22 20:06 PDT POCT - UR Protein Negative mg/dL 10/26/22 20:06 PDT POCT - UR Glucose Negative mg/dL 10/26/22 20:06 PDT POCT - UR Ketones Negative mg/dL 10/26/22 20:06 PDT POCT - UR Bilirubin Negative 10/26/22 20:06 PDT POCT - UR Blood Trace (ABNORMAL) 10/26/22 20:06 PDT POCT - UR Urobilinogen 0.2 mg/dL 10/26/22 20:06 PDT POCT - UR Nitrates Positive (ABNORMAL) 10/26/22 20:06 PDT POCT - UR Leuk Esterase Negative 10/26/22 20:06 PDT eGFR >90 mL/min/1.73m2 10/26/22 21:48 PDT [id number] Female 10/27/2022 [facility] ED Physician Notes Patient: ROSE CAIN Age: 41 years Legal Sex: FEMALE : 1980 Chief Complaint pt c/o uti s/s. urgency, burning during urination x 1 week. back pain started 2 days ago. Mode of Arrival Walk-In History (History of Present Illness) 41-year-old female with history of UTI presents for evaluation of concerns about having a UTI. She reports that for the last week she has been having urinary urgency, urinary frequency, dysuria and then 2 days ago started having flank pain bilaterally. Reports no fevers, chills but does report some nausea without vomiting. States he has had multiple UTIs in the past. Previously Macrobid and Keflex have worked. [employer] no longer works for her. Additional History Obtained From: _ Documentation Reviewed: _ Physical Exam Triage Vital Signs 06/08/22 09:08 T: 36.1 C HR: 78 RR: 16 BP: 138/65 SPO2: 97% O2 Delivery: Room air HT: 154.94 cm WT: 95.6 kg(Dose Calc Wt.) WT: 95.6 kg BMI: 39.82 kg/m2 General: Alert and oriented, sitting on gurney, nontoxic appearing, in no acute distress. Skin: [place], warm and dry, no rash noted. HEENT: NCAT. no icterus, mucosa pink and moist. Neck: Supple, no masses. Lungs: CTAB, BS equal. Heart: [Regular rate and rhythm], no murmurs appreciated. Abdomen: Soft, nondistended. nontender. No CVAT. Musculoskeletal: UE: Nontender to palpation throughout, full AROM and strength intact throughout. LE: no swelling or deformities Neurological: awake, alert, interacting appropriately, moving all extremities equally Medical Decision Making 41-year-old female with history of UTI presents for concerns of UTI Patient is nontoxic-appearing in no acute distress with normal vital signs. Clinically the patient appears to have pyelonephritis given flank pain with ongoing urinary symptoms for a week. Urinalysis was obtained and does show signs of UTI. Culture sent. I explained that I recommended cefdinir for the patient for treatment as I believe she has developed pyelonephritis the patient states that she took that once in the past and it did not work. I explained that Keflex has a high chance of not working for her current infection but patient states that she would like to try it anyway rather than try the cefdinir or she was also offered the option of a Rocephin shot with Levaquin outpatient. Patient declined this as well. Her exam is otherwise normal. Her vital signs are normal and she is well-appearing therefore do not feel any further work-up is indicated at this time. Stressed the importance of returning if her symptoms do not improve. Patient voiced understanding and agreement with care plan. All questions answered. _ Diagnosis Acute pyelonephritis Condition Stable Disposition Discharge to Home Prescriptions Current medications were reviewed and updated. Prescribed Medications 06/08/2022 10:28 PDT Keflex 500 mg oral capsule, = 1 Cap, ORAL, QID, X 10 Day(s), # 40 Cap, Indication= UTI, complicated, 0 Refill(s), Acute, Pharmacy: [facility] #[id number], 154.94, cm, 06/08/22 9:08:00 PDT, Height/Length (cm), 95.6, kg, 06/08/22 9:08:00 PDT, Dose calculation weight (kg) 06/08/2022 10:27 PDT ondansetron 4 mg oral tablet, disintegrating, = 1 DT_Tab, ORAL, Q8H, # 6 Tab, 0 Refill(s), Soft Stop, Pharmacy: [facility] #[id number], 154.94, cm, 06/08/22 9:08:00 PDT, Height/Length (cm), 95.6, kg, 06/08/22 9:08:00 PDT, Dose calculation weight (kg) Patient Education Pyelonephritis, Adult Follow-Up Provider: Return to Emergency Department Date: Within 1-2 days, only if needed Comment: Take the full course of antibiotics As we discussed these antibiotics may not work for your infection. You will need to return if your symptoms are not improving or continue to worsen after approximately 48 hours after you have started antibiotics this would include worsening pain, fevers, vomiting, or anything that concerns you Provider: Bird White Date: Within 2-3 days Address: [address] [place], [place] [id number] [facility] (1) MSEI Information MSEI MD/CAR TRIMMER/PA Time Patient Seen face to face: Date and time 06/08/2022 09:07:54 Past Medical History Active Problems No active problems Social History *Alcohol Screen How often do you have a drink containing alcohol? Never (0). *Substance Abuse Screen Do you have concerns about substance abuse for yourself or in your household? No. *Tobacco Use Screen Is there a smoker in the household? No. Allergies Demerol Latex Phenergan Pyridium Toradol Vicodin doxycycline fentanyl lidocaine prednisone Home Medications albuterol CFC free 90 mcg/inh Inhaler, 2 Puff, INH, Q4H, PRN Keflex 500 mg oral capsule, 500 mg, 1 Cap, ORAL, QID lamoTRIgine 25 mg oral tablet, 25 mg, 1 Tab, ORAL, DAILY Multivitamins oral capsule, 1 Cap, ORAL, DAILY naproxen 500 mg oral tablet, 500 mg, 1 Tab, ORAL, BID, PRN ondansetron 4 mg oral tablet, disintegrating, 1 DT_Tab, ORAL, Q8H Periogard 0.12% mucous membrane liquid, 0.018 gm, 15 mL, ORAL, BID, 1 refills Proventil HFA 90 mcg/inh inhalation aerosol, 1 Puff, INH, QID, PRN traMADol 50 mg oral tablet, 50 mg, 1 Tab, ORAL, Q4H, PRN Tylenol Tylenol with Codeine #3 oral tablet, 1 Tab, ORAL, Q4H, PRN Vitamin C Vitamin D, 400 IntUnit, ORAL, DAILY Zofran ODT 4 mg oral tablet, disintegrating, 4 mg, 1 Tab, ORAL, QID Lab Results Labs All 24H Lab Results Date POCT - hCG Urine Qual Pregnanc Negative - 06/08/22 09:24 PDT POCT - UR Appearance Clear 06/08/22 09:24 PDT POCT - UR Color Yellow 06/08/22 09:24 PDT Urine Culture Y/N Yes 06/08/22 09:21 PDT UA - Source/Collect Type Urine Clean Cat 06/08/22 09:21 PDT UA - Color Yellow 06/08/22 09:21 PDT UA - Appearance Clear 06/08/22 09:21 PDT UA - Specific Hope 1.038 - (HIGH) 06/08/22 09:21 PDT UA - pH 5 06/08/22 09:21 PDT UA - Protein Negative mg/dL 06/08/22 09:21 PDT UA - Glucose Negative mg/dL 06/08/22 09:21 PDT UA - Ketones Negative mg/dL 06/08/22 09:21 PDT UA - Bilirubin Negative 06/08/22 09:21 PDT UA - Blood Negative 06/08/22 09:21 PDT UA - Urobilinogen Negative mg/dL 06/08/22 09:21 PDT UA - Nitrites Negative 06/08/22 09:21 PDT UA - Leukocyte Esterase Small (ABNORMAL) 06/08/22 09:21 PDT UA - WBC 31-50 /HPF (ABNORMAL) 06/08/22 09:21 PDT UA - RBC 3-5 /HPF (ABNORMAL) 06/08/22 09:21 PDT UA - Epithelials, Squamous Few /LPF 06/08/22 09:21 PDT UA - Bacteria Few /HPF (ABNORMAL) 06/08/22 09:21 PDT UA - Mucus Few /LPF 06/08/22 09:21 PDT POCT - UR Specific Hope >=1.030 - (ABNORMAL) 06/08/22 09:24 PDT POCT - UR pH 6.0 06/08/22 09:24 PDT POCT - UR Protein 30 mg/dL (ABNORMAL) 06/08/22 09:24 PDT POCT - UR Glucose Negative mg/dL 06/08/22 09:24 PDT POCT - UR Ketones Negative mg/dL 06/08/22 09:24 PDT POCT - UR Bilirubin Small (ABNORMAL) 06/08/22 09:24 PDT POCT - UR Blood Trace (ABNORMAL) 06/08/22 09:24 PDT POCT - UR Urobilinogen 0.2 mg/dL 06/08/22 09:24 PDT POCT - UR Nitrates Negative 06/08/22 09:24 PDT POCT - UR Leuk Esterase Negative 06/08/22 09:24 PDT [id number] Female 06/08/2022 [facility] ED Physician Notes Patient: ROSE CAIN Age: 41 years Legal Sex: FEMALE : 1980 Chief Complaint Cough and chest pain x 5 days. Pt also reporting dysuria Mode of Arrival Walk-In History (History of Present Illness) This is a 41-year-old female that presents to the emergency department complaining of cough chest pain and pain with urination for the last 5 days. Patient states overall does not feel well. She states that she been doing Tylenol honey plenty fluids and rest [id number] with minimal relief. States he has a history of asthma she usually uses an inhaler but she does not currently have her inhaler. No dizziness or lightheadedness. No trauma. Denies any other complaints. Additional History Obtained From: _ Documentation Reviewed: _ Pertinent documentation including previous ER notes, previous hospital notes, ancillary nursing notes and outpatient notes Physical Exam Triage Vital Signs 03/10/22 17:24 T: 97.8 F HR: 72 RR: 16 BP: 133/93 SPO2: 97% HT: 152.4 cm WT: 96 kg(Dose Calc Wt.) WT: 96 kg BMI: 39.45 kg/m2 Airway: Patent - No gurgling, snoring, or stridor noted with respirations Breathing: good air movement. No accessory muscle use. Chest rise is equal and bilateral Circulation: No gross bleeding, no cyanosis or pallor noted. GENERAL: Patient is alert and able to carry on a conversation without difficulty. Resting comfortably in exam bed HEENT: Head: Atraumatic. Normocephalic. Eyes: pupils equal, round, reactive to light and accommodating. Extraocular movements intact. Mouth: Mucous membranes are pink and moist. NECK: Trachea is midline. There is no JVD CARDIOVASCULAR: Auscultation of heart reveals S1 and S2 present. Regular rate and rhythm without murmurs, rubs or gallops. LUNGS: Lungs are clear to auscultation bilaterally without wheezes, rhonchi or rales. Chest wall movement is symmetrical. ABDOMEN: Soft, nontender, without rebound rigidity or guarding. EXTREMITIES: No Clubbing Cyanosis or edema. NEURO: CN II-XII grossly intact. Pt. follows all commands appropriately. Speech is normal. Moving all 4 extremities. Faisal Coma Scale 15. MSK/Osteopathic: Normal bulk and tone. Skin: Grossly intact with no rashes, no diaphoresis. Cap refill is less than 2 seconds Further exam is deferred to focus on area of chief complaint. ED Course, Data, and Interventions ED COURSE AND MEDICAL DECISION MAKING: The patient was triaged, placed in a room, and had vital signs taken by nursing staff. Nursing notes were reviewed. After the physical exam which is included above, well-appearing, symptoms are consistent with a viral upper respiratory infection. X-rays performed to rule out pneumonia and is negative. The patient does not have any wheezing on exam I doubt asthma exacerbation. She does have a history of asthma, I will refill her inhaler at her request. Urinalysis is also performed as well as an EKG both are within normal limits. At this time the patient is safe for discharge home she can return for any new or worsening symptoms or other concerns or may arise otherwise follow-up primary care doctor. I informed the patient of all results and we discussed clinical impression, possible diagnosis, and return precautions. Patient was educated to return within 24 hours for any worsening or persistent signs and symptoms. Patient expressed understanding. We discussed a plan for continuing care at the bedside to which the patient was agreeable to. Patient is welcome back to the Emergency Department at any time. Diagnostics Imaging results below were independently viewed and interpreted by me. General Diagnostic Result Type: Chest 2 Vw Result Date: March 10, 2022 19:07 PST Reason For Exam: Chest Pain REPORT: Reason for Exam: Chest Pain Ordering Provider: Quincy Apodaca DOEXAM: Chest 2 Vw at 1857 hoursViews: PA and lateralComparison Exam(s): 03/24/2021 FINDINGS: The lungs are well expanded and show no abnormal opacities. There is no blunting of the costophrenic sulci or pneumothorax. The cardiomediastinal silhouette and pulmonary vasculature are unremarkable. No bony or soft tissue abnormalities are noted. There has been no significant interval change. IMPRESSION: Normal chest exam. Order Name: ECG 12 Lead - CV (ED) Date Performed: 03/10/2022 17:50:39 PST Status: Signed Impression: Normal sinus rhythm with a normal axis, normal intervals, nonspecific ST-T wave changes similar to previous Electronic Signature: DO Apodaca Michael D 03/10/2022 18:06:22 EKG: EKG results below were independently viewed and interpreted by me. Date Performed: 03/10/2022 17:50:39 PST Status: Signed Impression: Normal sinus rhythm with a normal axis, normal intervals, nonspecific ST-T wave changes similar to previous Electronic Signature: DO Apodaca Michael D 03/10/2022 18:06:22 Medical Decision Making Diagnosis Clinical impression: Upper respiratory infection Social Determinants of Health: _ Condition Improved Disposition Discharge to Home Prescriptions Current medications were reviewed and updated. Prescribed Medications 03/10/2022 19:26 PST Proventil HFA 90 mcg/inh inhalation aerosol, 1 Puff, INH, QID, PRN for wheezing, # 1 ea, 0 Refill(s), Maintenance, Pharmacy: [facility], 152.4, cm, 12/30/21 18:55:00 PST, Height/Length (cm), 96, kg, 03/10/22 17:24:00 PST, Dose calculation weight (kg) Patient Education Upper Respiratory Infection, Adult Follow-Up Provider: Follow up with primary care provider Date: Within 1-2 days Comment: Take medications as prescribed. As we discussed you should follow up with primary care doctor in next 2-4 days for further evaluation or please return to the emergency department for any worsening or persistent signs and symptoms or any new concerning signs or symptoms over the next 24 hours. Provider: Bird White Date: Within 1-2 days Address: [address] [place] [id number] [facility] (1) MSEI Information MSEI MD/CAR TRIMMER/PA Time Patient Seen face to face: Date and time 03/10/2022 17:31:25 Past Medical History Active Problems No active problems Allergies Demerol Latex Phenergan Pyridium Toradol Vicodin doxycycline fentanyl lidocaine prednisone Home Medications albuterol CFC free 90 mcg/inh Inhaler, 2 Puff, INH, Q4H, PRN lamoTRIgine 25 mg oral tablet, 25 mg, 1 Tab, ORAL, DAILY Multivitamins oral capsule, 1 Cap, ORAL, DAILY naproxen 500 mg oral tablet, 500 mg, 1 Tab, ORAL, BID, PRN Periogard 0.12% mucous membrane liquid, 0.018 gm, 15 mL, ORAL, BID, 1 refills Proventil HFA 90 mcg/inh inhalation aerosol, 1 Puff, INH, QID, PRN traMADol 50 mg oral tablet, 50 mg, 1 Tab, ORAL, Q4H, PRN Tylenol Tylenol with Codeine #3 oral tablet, 1 Tab, ORAL, Q4H, PRN Vitamin C Vitamin D, 400 IntUnit, ORAL, DAILY Zofran ODT 4 mg oral tablet, disintegrating, 4 mg, 1 Tab, ORAL, QID Lab Results Laboratory results below were independently viewed and interpreted by me. Labs All 24H Lab Results Date POCT - hCG Urine Qual Pregnanc Negative - 03/10/22 18:20 PST POCT - UR Appearance Clear 03/10/22 18:21 PST POCT - UR Color Yellow 03/10/22 18:21 PST POCT - UR Specific Hope >=1.030 - (ABNORMAL) 03/10/22 18:21 PST POCT - UR pH 5.5 03/10/22 18:21 PST POCT - UR Protein Negative mg/dL 03/10/22 18:21 PST POCT - UR Glucose Negative mg/dL 03/10/22 18:21 PST POCT - UR Ketones Negative mg/dL 03/10/22 18:21 PST POCT - UR Bilirubin Negative 03/10/22 18:21 PST POCT - UR Blood Trace (ABNORMAL) 03/10/22 18:21 PST POCT - UR Urobilinogen 0.2 mg/dL 03/10/22 18:21 PST POCT - UR Nitrates Negative 03/10/22 18:21 PST POCT - UR Leuk Esterase Negative 03/10/22 18:21 PST Images Images below were independently viewed and interpreted by me. [id number] Female 03/11/2022 [facility] XR Chest 2 Views Reason for Exam: [facility] Pain Ordering Provider: Quincy Apodaca DO EXAM: Chest 2 Vw at 1857 hours Views: PA and lateral Comparison Exam(s): 03/24/2021 FINDINGS: The lungs are well expanded and show no abnormal opacities. There is no blunting of the costophrenic sulci or pneumothorax. The cardiomediastinal silhouette and pulmonary vasculature are unremarkable. No bony or soft tissue abnormalities are noted. There has been no significant interval change. IMPRESSION: Normal chest exam. Final 03/11/2022 75 [facility] ED Physician Notes Patient: ROSE CAIN Age: 41 years Legal Sex: FEMALE : 1980 Chief Complaint pt ambulates to ED with c/o vomiting and headache since tuesday Mode of Arrival Walk-In History of Present Illness This is a 41-year-old who presents to the emergency room complaining of nausea vomiting and diarrhea this been going on for 3 days. She is just worried because been lasting so long. She can keep fluids down but when she tries to eat she actually vomits up. She has not had any fever but she has been very kind of myalgic and not really feeling at her baseline Patient has a history of appendectomy and cholecystectomy Passing gas/diarrhea Patient states that first her kids were sick and then she got the same illness Review of Systems Constitutional: No fever Eyes: No discharge HEENT: No congestion Respiratory: No shortness of breath Cardiovascular: No chest pain Gastrointestinal: Nausea vomiting diarrhea : No difficulty with urination Musculoskeletal: No extremity edema Skin: No rash Neurologic: No weakness or numbness Remainder of review systems is negative Physical Exam Triage Vital Signs 12/30/21 18:42 T: 97.3 F HR: 79 RR: 16 BP: 126/73 SPO2: 97% HT: 152.4 cm WT: 91.63 kg(Dose Calc Wt.) WT: 91.63 kg BMI: 39.45 kg/m2 General: Patient alert and a good historian Eyes: No conjunctival injection HEENT: mucous members are moist, Lungs: Good bilateral breath sounds. No wheezing Heart: Regular rhythm without murmurs Abdomen: Bowel sounds are present soft, nontender throughout, umbilical hernia which is easily reducible Musculoskeletal: No edema. No calf or thigh tenderness Skin: No rashes Neurologic: Interactive and alert ED Course Orders Zofran, 4 mg, 1 Tab, ORAL, ONCE Re-evaluation This patient presents here having nausea vomiting and diarrhea for the last 3 days. She wanted her umbilical hernia checked. It is easily reduced. I gave her Zofran orally. We then gave her some crackers to see how she did Patient was able to keep the crackers down. She feels significantly improved. I am sending a prescription for Zofran. She is improving Medical Decision Making Diagnosis Cute gastroenteritis Condition Improved Disposition Discharge to Home Prescriptions Prescribed Medications 12/30/2021 20:55 PST Zofran ODT 4 mg oral tablet, disintegrating, = 1 Tab, ORAL, QID, # 8 Tab, 0 Refill(s), Maintenance, Pharmacy: [facility] #[id number], 152.4, cm, 12/30/21 18:55:00 PST, Height/Length (cm), 91.63, kg, 12/30/21 18:55:00 PST, Dose calculation weight (kg) Patient Education Viral Gastroenteritis, Adult Follow-Up Provider: Follow up with primary care provider Date: Within 2-3 days MSEI Information MSEI MD/CAR TRIMMER/PA Time Patient Seen face to face: Date and time 12/30/2021 18:51:47 Past Medical History Active Problems No active problems Allergies Demerol Latex Phenergan Pyridium Toradol Vicodin doxycycline fentanyl lidocaine prednisone Home Medications albuterol CFC free 90 mcg/inh Inhaler, 2 Puff, INH, Q4H, PRN lamoTRIgine 25 mg oral tablet, 25 mg, 1 Tab, ORAL, DAILY Multivitamins oral capsule, 1 Cap, ORAL, DAILY naproxen 500 mg oral tablet, 500 mg, 1 Tab, ORAL, BID, PRN Periogard 0.12% mucous membrane liquid, 0.018 gm, 15 mL, ORAL, BID, 1 refills traMADol 50 mg oral tablet, 50 mg, 1 Tab, ORAL, Q4H, PRN Tylenol Tylenol with Codeine #3 oral tablet, 1 Tab, ORAL, Q4H, PRN Vitamin C Vitamin D, 400 IntUnit, ORAL, DAILY Social History *Alcohol Screen How often do you have a drink containing alcohol? Never (0). *Substance Abuse Screen Do you have concerns about substance abuse for yourself or in your household? No. *Tobacco Use Screen Is there a smoker in the household? No. Family History Family history is negative [id number] Female 12/31/2021 [facility] ED Physician Notes Patient: ROSE CAIN Age: 40 years Legal Sex: FEMALE : 1980 Chief Complaint Dental pain. Waiting for surgery at [facility] Mode of Arrival Walk-In History of Present Illness Patient is a 40-year-old female coming in with concerns over multiple dental infections. She states that she has a long history of significant dental complications and is awaiting surgery with the maxillofacial in [place]. She states that she has had multiple rounds of infections that require IV Rocephin and clindamycin. She states that she is spoken with her oral surgeon and recommended to come to the ER if any infection begins. For the past week, she has noticed more pain in multiple areas of her mouth where she has dental decay and missing teeth that need to be surgically removed. She says no other medications even touch the infections. She denies any fever or chills. Review of Systems In addition to that documented in the HPI, the additional ROS was obtained: Constitutional: Denies fever chills HEENT: Denies vision changes, neck pain or sore throat CV: Denies chest pain Resp: Denies shortness of breath GI: Denies vomiting or diarrhea : Denies painful urination MSK: Denies recent trauma Skin: Denies new rashes Neuro: Denies new numbness or tingling or weakness Endocrine: Denies unexpected weight loss Physical Exam Triage Vital Signs T: 98.7 F HR: 87 RR: 18 BP: 131/80 SPO2: 98% HT: 152.40 cm WT: 98.1 kg(Dose Calc Wt.) WT: 98.1 kg BMI: 40.42 kg/m2 CONSTITUTIONAL: Well developed, well nourished. Alert and oriented. No distress. HEENT: Multiple missing teeth. Pain to palpation of the gums around the missing teeth. Very small abscess appreciated on the gumline of the lower left mandible. No significant facial or mouth swelling. Otherwise: Atraumatic, normocephalic, PERRL, no conjunctival injection or icterus. Trachea midline. RESPIRATORY: Speaking in full sentences. No stridor, no respiratory distress. MUSCULOSKELETAL: No bony deformities appreciated. Full ROM of upper and lower extremities bilaterally. NEUROLOGIC: Alert and oriented. Normal gaze. Normal speech. No ataxia. SKIN: [place], warm and dry. No rashes, lesions or sores. PSYCHOLOGIC: Appropriate mood and affect. Cooperative and coherent. Medical Decision Making Patient presents for concerns of her multiple dental infections, with a history of dental complications and referral for specialty care and [place]. Physical exam is largely unremarkable, she does have multiple missing teeth with some signs of infection. She has a very small tender area that may be an abscess on the gumline of the left mandible, the size is positive for I do not believe it requires a I&D. The patient is adamant about her specific antibiotic regimen, stating that nothing else has ever even 'dented it'. She is requesting Rocephin and clindamycin. She said penicillin and amoxicillin are completely inadequate. Patient received IM Rocephin and discharged with oral clindamycin with recommendations to follow-up promptly with her oral surgeon specialty team. She is well-appearing and nontoxic, vital signs within normal limits and she is afebrile. No signs of facial swelling. Diagnosis 1. Pain, dental (Other specified disorders of teeth and supporting structures, K08.89) Condition Stable Disposition Discharge to Home Prescriptions Prescribed Medications 04/06/2021 14:01 PST Periogard 0.12% mucous membrane liquid, 15 mL, ORAL, BID, (swish and spit; do not swallow), # 900 mL, 1 Refill(s), Maintenance, [facility]acy: [id number], 152.4, cm, 11/15/20 18:56:00 PDT, Height/Length (cm), 98.1, kg, 04/06/21 12:44:00 PST, Dose calculation weight (kg) 04/06/2021 13:44 PST clindamycin 300 mg oral capsule, = 1 Cap, ORAL, Q6H, X 10 Day(s), # 40 Cap, Indication= Oropharyngeal infection, 0 Refill(s), Acute, Pharmacy: [facility] #[id number], 152.4, cm, 11/15/20 18:56:00 PDT, Height/Length (cm), 98.1, kg, 04/06/21 12:44:00 PST, Dose calculation weight (kg) Patient Education Dental Abscess Follow-Up Provider: Bird White Date: Within 1-2 days Comment: Clindamycin has been sent to [facility], take this as prescribed. I am also sending you home with a prescription for PerioGard, use this twice a day as an antibacterial mouthwash. Ibuprofen and Tylenol can be helpful for pain relief. I do recommend probiotics as clindamycin can be hard on the GI system. Follow-up promptly with your maxillofacial specialty team for further management. Address: [address] [place], [place] [id number] [facility] () [facility] [place] Information SYLVESTERI /CAR TRIMMER/PA Time Patient Seen face to face: Date and time 04/06/2021 12:49:45 Past Medical History Active Problems No active problems Allergies Demerol Latex Phenergan Pyridium Toradol Vicodin doxycycline fentanyl lidocaine prednisone Home Medications albuterol CFC free 90 mcg/inh Inhaler, 2 Puff, INH, Q4H, PRN lamoTRIgine 25 mg oral tablet, 25 mg, 1 Tab, ORAL, DAILY Multivitamins oral capsule, 1 Cap, ORAL, DAILY naproxen 500 mg oral tablet, 500 mg, 1 Tab, ORAL, BID, PRN traMADol 50 mg oral tablet, 50 mg, 1 Tab, ORAL, Q4H, PRN Tylenol Tylenol with Codeine #3 oral tablet, 1 Tab, ORAL, Q4H, PRN Vitamin C Vitamin D, 400 IntUnit, ORAL, DAILY Social History *Alcohol Screen How often do you have a drink containing alcohol? Never (0). *Substance Abuse Screen Do you have concerns about substance abuse for yourself or in your household? No. *Tobacco Use Screen Tobacco Use: Former smoker. Tobacco Type: Cigarettes. pack(s) per day 0. Smokeless tobacco type amt used per day: trying to quit, states she hasn't smoked in a couple of days. Family History Family history is negative [id number] Female 04/06/2021 [facility] ED Physician Notes Patient: ROSE CAIN Age: 40 years Legal Sex: FEMALE : 1980 Chief Complaint Pt c/o CP, back pain, fatigued, feels dyspneic with amb/sitting, here for further eval History of Present Illness This is a 40-year-old female who presents to the ER complaining of dyspnea, cough, and chest/back pain. She has been having the symptoms for over a week. She is she was diagnosed with COVID-19 just under 2 weeks ago. About 5 or 6 days into her illness that she started having the symptoms. She states with any exertion she gets quite out of breath. At rest she is reporting a moderate sharp pain across her chest and upper back. This pain is worse with coughing. She denies any hemoptysis. She is not had any reported fever. She is not been taking anything for her symptoms. She had not previously been vaccinated for COVID-19. She is concerned because her father of a pulmonary embolism after being diagnosed with COVID-19. She has no other known history of thromboembolic disease. She denies smoking, estrogen use, or recent travel. Review of Systems General: no fever/chills HEENT: no problems with vision, ear pain, nasal congestion, or sore throat, Hematologic/Immune: no easy bruising/bleeding, swollen glands Endocrine: No polyuria or polydipsia GI: No abdominal pain, nausea, vomiting, or diarrhea Respiratory: Positive for dyspnea and cough Cardiac: no palpitations (female): no dysuria, burning, frequency, blood in urine Musculoskeletal: no joint or muscle pain, swelling or erythema of joints, recent injury Skin: no skin rash Psych: no suicidal ideation. Neuro: no headaches, dizziness, double vision, weakness in extremity, change in sensation, problems with balance/gait The remainder of the review of systems is negative except for what is stated in the above history of present illness Physical Exam Triage Vital Signs T: 98.1 F HR: 81 RR: 18 BP: 116/93 SPO2: 99% HT: 152.40 cm WT: 97 kg(Dose Calc Wt.) WT: 97 kg BMI: 40.42 kg/m2 General Appearance: Well developed, well nourished, alert and cooperative 40 year old female. Head: normocephalic, atruamatic. Eyes: PERRL, EOMI, vision is grossly intact. Ears: External ears are normal, hearing grossly intact. Nose: No nasal discharge. Throat: Oral cavity and pharynx normal. No inflammation, swelling, exudate, or lesions. Neck: Neck supple, non-tender without lymphadenopathy, masses or thyromegaly. Cardiac: Regular rate and rhythm. Normal S1 and S2. No murmurs rubs or gallops. Extremities are warm and well perfused. Capillary refill is less than 2 seconds. Lungs: Clear to auscultation and percussion without rales, rhonchi, wheezing or diminished breath sounds. Abdomen: Soft and nondistended. No localizing areas of tenderness are present. Back: There are no visible signs of trauma. There is no pain to palpation. Extremities: No significant deformity or joint abnormality. . Neurological: Alert and oriented to person, place and time. CN II-XII intact. Strength and sensation symmetric and intact throughout. Skin: Skin normal color, texture and turgor with no lesions or eruptions. Psychiatric: The patient was able to demonstrate good judgment and reason, without hallucinations, abnormal affect or abnormal behaviors during the examination. Patient is not suicidal. Reexamination/Reevaluation Is a well-appearing 40-year-old female presents to the ER with ongoing cough, dyspnea, and chest pain in the setting of COVID-19 diagnosis approximately 2 weeks ago. I reviewed her past medical record. An IV was placed and labs were drawn. An EKG was done. I ordered and reviewed a chest x-ray. No acute abnormalities were seen. EKG was unremarkable. Labs also were normal including a negative troponin and D-dimer. So I suspect these are residual symptoms from her recent COVID-19 infection. I do not have a high suspicion for acute coronary syndrome, pulmonary embolism, heart failure, or pericardial effusion. The patient is felt to be stable for discharge. Need for follow-up and return precautions were discussed. Assessment/Plan _ Shortness of breath (Shortness of breath, [id number]) Dyspnea secondary to recent COVID-19 infection Plan: Discharge to home Activity as tolerated Follow-up with primary care Return to the emergency department increased difficulty breathing or any other concerning symptoms Orders: Basic Metabolic Panel BMP CBC w Differential Chest 1 Vw Portable D Dimer Quantitative ECG 12 Lead - CV (ED) Point of Care Testing Saline Lock Troponin I Patient Education Shortness of Breath (Dyspnea) Follow-Up Provider: Bird White Date: Within 5-7 days Address: [address] [place] [address] [facility] (1) MSEI Information MSEI MD/CAR TRIMMER/PA Time Patient Seen face to face: Date and time 03/24/2021 17:32:16 Allergies Demerol Latex Phenergan Pyridium Toradol Vicodin doxycycline fentanyl lidocaine prednisone Problem List Active Problems No qualifying data Inactive Problems Anxiety Bronchitis Irritable bowel syndrome Migraine UTI - Urinary tract infection Medications Inpatient No active inpatient medications Home albuterol CFC free 90 mcg/inh Inhaler, 2 Puff, INH, Q4H, PRN lamoTRIgine 25 mg oral tablet, 25 mg, 1 Tab, ORAL, DAILY Multivitamins oral capsule, 1 Cap, ORAL, DAILY naproxen 500 mg oral tablet, 500 mg, 1 Tab, ORAL, BID, PRN traMADol 50 mg oral tablet, 50 mg, 1 Tab, ORAL, Q4H, PRN Tylenol Tylenol with Codeine #3 oral tablet, 1 Tab, ORAL, Q4H, PRN Vitamin C Vitamin D, 400 IntUnit, ORAL, DAILY Lab Results Labs All 24H Lab Results Date GFR - Non >60 mL/min/1.73m2 03/24/21 18:37 PST GFR - >60 mL/min/1.73m2 03/24/21 18:37 PST Auto Neutrophil Percent 50.6 % 03/24/21 18:37 PST Auto Neutrophil Absolute 2.8 K/uL 03/24/21 18:37 PST Auto Lymphocyte Percent 34.6 % 03/24/21 18:37 PST Auto Lymphocyte Absolute 1.9 K/uL 03/24/21 18:37 PST Auto Monocyte Percent 10.7 % 03/24/21 18:37 PST Auto Monocyte Absolute 0.6 K/uL 03/24/21 18:37 PST Auto Basophil Percent 1.9 % 03/24/21 18:37 PST Auto Basophil Absolute 0.1 K/uL 03/24/21 18:37 PST Auto Eosinophil Percent 2.2 % 03/24/21 18:37 PST Auto Eosinophil Absolute 0.1 K/uL 03/24/21 18:37 PST WBC 5.6 K/uL 03/24/21 18:37 PST RBC 4.44 M/mm3 03/24/21 18:37 PST HGB 12.6 gm/dL 03/24/21 18:37 PST HCT 37.4 % 03/24/21 18:37 PST MCV 84.4 fL 03/24/21 18:37 PST MCH 28.5 pg 03/24/21 18:37 PST MCHC 33.8 gm/dL 03/24/21 18:37 PST RDW 13.2 % 03/24/21 18:37 PST PLT 358 K/uL 03/24/21 18:37 PST Sodium Level 139 mmol/L 03/24/21 18:37 PST Potassium Level 3.8 mmol/L 03/24/21 18:37 PST Chloride Level 103 mmol/L 03/24/21 18:37 PST CO2/Carbon Dioxide 28 mmol/L 03/24/21 18:37 PST Anion Gap 8 03/24/21 18:37 PST Glucose, Random 93 mg/dL 03/24/21 18:37 PST BUN 18 mg/dL 03/24/21 18:37 PST Creatinine 0.8 mg/dL 03/24/21 18:37 PST BUN/Creat Ratio 22.5 03/24/21 18:37 PST Osmolality, Calculated 290 mOsm/L 03/24/21 18:37 PST Calcium Level 9.3 mg/dL 03/24/21 18:37 PST Troponin I <0.02 ng/mL 03/24/21 18:37 PST D-Dimer, Qnt <0.27 mcg/mL FEU 03/24/21 18:37 PST Social History Abuse/Intent to Harm Abuse screen, adult/elderly/domestic: No signs of abuse Are you thinking of harming or killing anyone else?: No Feels unsafe at home: No Injuries/Abuse/Neglect in household: No Safety check complete: Yes CSSRS Risk Level: No risk (0-24) CSSRS Suicide screening ED: Complete the suicide screening *Alcohol Screen How often do you have a drink containing alcohol? Never (0). *Home/Environment Screen Living Situation: Home/Independent. *Nutrition Screen Is patient able to complete assessment at this time? Yes. Nutritional Risks: No nutritional risk triggers identified. *Substance Abuse Screen Do you have concerns about substance abuse for yourself or in your household? No. *Tobacco Use Screen Tobacco Use: Former smoker. Tobacco Type: Cigarettes. pack(s) per day 0. Smokeless tobacco type amt used per day: trying to quit, states she hasn't smoked in a couple of days. Family History Family history is negative Diagnostic Results General Diagnostic Result Type: Chest 1 Vw Portable Result Date: March 24, 2021 18:28 PST Reason For Exam: Chest Pain REPORT: Reason for Exam: Chest Pain Ordering Provider: Raphael Romero DOEXAM: Chest 1 Vw Portable at 1824 hoursViews: Upright APComparison Exam(s): 04/04/2018 FINDINGS: The lungs are well expanded and show no abnormal opacities. There is no blunting of the lateral costophrenic sulci or pneumothorax. The cardiomediastinal silhouette and pulmonary vasculature are unremarkable. No bony or soft tissue abnormalities are noted. There has been no significant interval change. IMPRESSION: Normal AP chest exam. Date Performed: 03/24/2021 19:08:31 PST Status: Signed Impression: SINUS RHYTHM HEART RATE 64 BEATS PER MINUTE NORMAL AXIS AND INTERVALS NO ST OR T WAVE ABNORMALITIES NORMAL ECG Electronic Signature: DO Romero Brandon C 03/24/2021 20:14:32 [id number] Female 03/25/2021 [facility] ED Physician Notes Patient: ROSE CAIN Age: 40 years Legal Sex: FEMALE : 1980 Chief Complaint Pt here for covid test. Mode of Arrival Walk-In History of Present Illness This 40-year-old female presents here requesting COVID testing. She has a COVID-positive child at home. She is experiencing a couple days of mild headache, sore throat, dry cough, and a feeling of fatigue. Review of Systems Constitutional: Mild headache, fatigue. EENT: Sore throat. Respiratory: Cough. Cardiovascular: Negative. Gastrointestinal: Negative. Genitourinary: Negative. Musculoskeletal: Negative. Skin: Negative. Neurologic: Negative. Psychiatric: Negative. Physical Exam Triage Vital Signs T: 97.8 F HR: 85 RR: 16 BP: 142/77 SPO2: 97% HT: 152.40 cm WT: 97 kg(Dose Calc Wt.) WT: 97 kg BMI: 40.42 kg/m2 Vital signs normal, with mildly elevated blood pressure General Appearance: No acute distress. HEENT: Normocephalic. No nasal discharge. Oral cavity and pharynx normal. Neck: Supple, non-tender without lymphadenopathy, masses or thyromegaly. Cardiac: Normal rate and rhythm. No peripheral edema, cyanosis or pallor. Lungs: No increased work of breathing. Musculoskeletal: No joint deformity, erythema, or tenderness. Full ROM all joints. Neurological: Normal motor, sensory. CN II-XII grossly normal. Skin: Skin normal color, texture and turgor with no rash present. Genitalia: Deferred. Psychiatric: Demonstrated good judgment and reason. Normal affect during examination. ED Course Documents Reviewed Past emergency department notes Medical Decision Making This 40-year-old female presents requesting COVID testing. On exam, which is noted above, patient appears well and nontoxic. She has had a couple days of COVID-like symptoms in the context of having a COVID-positive child at home. Nasal swab was sent for testing and I let patient know we would call with any positive result. Patient received my usual and customary discussion of COVID-19, of which she verbalized understanding. Indications for return reviewed. Diagnosis COVID-19 testing Condition Stable Disposition Discharge to Home Patient Education COVID19 Positive or Pending Results (Custom) Follow-Up Provider: Bird White Date: Within 1-2 days Comment: We have sent testing today for COVID-19. Please go home and keep yourself in strict quarantine until we know your results. Your results will be back later today. We will only call you if your test is positive. Please go to the ER supervisor front before leaving to sign up for the patient portal. This is the best way to obtain your Covid test results. Alternatively, you can call the emergency department later today to ask about your results. Our telephone number is [phone]. Take Tylenol or ibuprofen as needed for pain or fevers. Follow-up with your primary care provider. Return to the emergency department immediately for any new or worsening symptoms. Please note your care in the emergency department today is not a substitute for good follow-up and a comprehensive evaluation through her primary care physician. There is no immediate, life-threatening causes for your symptoms at this time. Symptoms can change new problems may arise after evaluation. Please do not hesitate to return for further care. Address: [address] [place], [place] [id number] [facility] (1) MSEI Information LOLITA JACINTO/CAR TRIMMER/PA Time Patient Seen face to face: Date and time 03/11/2021 17:50:31 Past Medical History Active Problems No active problems Allergies Demerol Latex Phenergan Pyridium Toradol Vicodin doxycycline fentanyl lidocaine prednisone Home Medications albuterol CFC free 90 mcg/inh Inhaler, 2 Puff, INH, Q4H, PRN clindamycin 300 mg oral capsule, 300 mg, 1 Cap, ORAL, Q6H lamoTRIgine 25 mg oral tablet, 25 mg, 1 Tab, ORAL, DAILY Multivitamins oral capsule, 1 Cap, ORAL, DAILY naproxen 500 mg oral tablet, 500 mg, 1 Tab, ORAL, BID, PRN traMADol 50 mg oral tablet, 50 mg, 1 Tab, ORAL, Q4H, PRN Tylenol Tylenol with Codeine #3 oral tablet, 1 Tab, ORAL, Q4H, PRN Vitamin C Vitamin D, 400 IntUnit, ORAL, DAILY Social History *Alcohol Screen How often do you have a drink containing alcohol? Never (0). *Substance Abuse Screen Do you have concerns about substance abuse for yourself or in your household? No. *Tobacco Use Screen Tobacco Use: Former smoker. Tobacco Type: Cigarettes. pack(s) per day 0. Smokeless tobacco type amt used per day: trying to quit, states she hasn't smoked in a couple of days. Family History Family history is negative [id number] Female 03/12/2021 [facility] ED Physician Notes Patient: ROSE CAIN Age: 40 years Legal Sex: FEMALE : 1980 Chief Complaint Dental pain x 3 days Mode of Arrival Walk-In History of Present Illness 40yoF, hx seizure disorder, asthma, poor dentition, followed at [facility] clinic Here with throbbing lower right dental pain and R cheek swelling x3days. No bleeding or drainage, but gums are inflamed and very sensitive to hot/cold. No drooling, voice changes or difficulty swallowing. No neck stiffness. No fever or chills. Pt has had similar issues in the past, responds well to clindamycin. Pt has an upcoming dental appt at [facility] clinic in 1 week, pt hoping to get antibiotics to bridge her to that appointment. Review of Systems Constitutional: no generalized weakness, no fever, no chills, no unintentional weight loss Respiratory: no cough, no shortness of breath Cardiovascular: no chest pain Physical Exam Triage Vital Signs T: 96.8 F HR: 75 RR: 16 BP: 112/70 SPO2: 98% HT: 152.40 cm WT: 93 kg(Dose Calc Wt.) WT: 93 kg BMI: 40.42 kg/m2 Constitutional: no distress, well appearing, well developed HEENT: R cheek swelling. Lower right mandible with inflamed gums, no fluctuance, tender to touch. Neck supple, normal ROM. Cardiovascular: normal rate, regular rhythm, no cyanosis or pallor Respiratory: CTA, non-labored respirations, normal air movement in lung farley Extremities: no bony deformity, full ROM of major joints Neurological: oriented x4, stable gait ED Course Differential Diagnosis Dental Infection with facial cellulitis - No current clinical evidence of drainable abscess. Considered dentoalveolar injury, alveolar osteitis, necrotizing gingivitis, [employer]ING, RPA, Ludwigs angina. Also considered scurvy, gingival hyperplasia. Plan: Clindamycin x1week Ice, Antiinflammatory meds [facility] follow up within 1 week as already arranged Discussed plan at length with pt, answered all questions, gave specific return precautions, pt expressed understanding and agreement with plan. Documents Reviewed Nursing triage and VS PMH, medications and allergies Chart review Medical Decision Making Diagnosis Dental Infection Facial Cellulitis Condition Stable Disposition Discharge to Home Prescriptions Prescribed Medications 03/05/2021 15:23 PST clindamycin 300 mg oral capsule, = 1 Cap, ORAL, Q6H, X 10 Day(s), # 40 Cap, Indication= Other (Please specify in comments), 0 Refill(s), Dental Infection, Acute, Pharmacy: [facility] #[id number], 152.4, cm, 11/15/20 18:56:00 PDT, Height/Length (cm), 93, kg, 03/05/21 14:44:00 PST, Dose calc... Patient Education Dental Abscess with Facial Cellulitis Follow-Up Provider: Return to Emergency Department Date: Provider: [facility] Clinic Date: Within 1 week Comment: You were seen for a dental infection. You were prescribed clindamycin, which is worked for you in the past, please pick this prescription up at the [facility] pharmacy. You may safely take ibuprofen and acetaminophen as you have been doing. Please follow closely with the oral maxillofacial surgery clinic at [facility] as previously planned. Return to the emergency department for any worsening facial swelling despite 2 to 3 days of antibiotics, neck stiffness, severe headache, blurry vision, passing out, anything else concerning to you. Provider: Bird White Date: Address: [address] [place] [id number] [facility] (1) MSEI Information MSEI MD/CAR TRIMMER/PA Time Patient Seen face to face: Date and time 03/05/2021 14:42:18 Past Medical History Active Problems No active problems Allergies Demerol Latex Phenergan Pyridium Toradol Vicodin doxycycline fentanyl lidocaine prednisone Home Medications albuterol CFC free 90 mcg/inh Inhaler, 2 Puff, INH, Q4H, PRN clindamycin 300 mg oral capsule, 300 mg, 1 Cap, ORAL, Q6H lamoTRIgine 25 mg oral tablet, 25 mg, 1 Tab, ORAL, DAILY Multivitamins oral capsule, 1 Cap, ORAL, DAILY naproxen 500 mg oral tablet, 500 mg, 1 Tab, ORAL, BID, PRN traMADol 50 mg oral tablet, 50 mg, 1 Tab, ORAL, Q4H, PRN Tylenol Tylenol with Codeine #3 oral tablet, 1 Tab, ORAL, Q4H, PRN Vitamin C Vitamin D, 400 IntUnit, ORAL, DAILY Social History *Alcohol Screen How often do you have a drink containing alcohol? Never (0). *Substance Abuse Screen Do you have concerns about substance abuse for yourself or in your household? No. *Tobacco Use Screen Tobacco Use: Former smoker. Tobacco Type: Cigarettes. pack(s) per day 0. Smokeless tobacco type amt used per day: trying to quit, states she hasn't smoked in a couple of days. Family History Family history is negative [id number] Female 03/05/2021 [facility] ED Physician Notes Patient: ROSE CAIN Age: 40 years Legal Sex: FEMALE : 1980 Chief Complaint PATIENT AMBULATED IN FROM HOME, PT C/O FEVER, CHILLS, BODY ACHES, ABD PAIN, DIARRHEA, DENTAL ABSCESS. SEEN AT [facility] YESTERDAY AND HAD COVID AND STREP THAT WERE NEGATIVE Mode of Arrival Walk-In History of Present Illness 40-year-old female with history of epilepsy and hypertension presenting with vague symptoms of fatigue, intermittent body aches, subjective fevers and chills, as well as diarrhea. Symptoms are intermittent, mild to moderate at times, without any obvious exacerbating alleviating factors. Patient reports symptoms started yesterday. Endorses positive sick contacts with Covid. Denies nausea, vomiting, constipation, chest pain, shortness of breath, cough, dysuria, hematuria hematochezia, melena, hematemesis, or any other associated symptoms. Review of Systems Positive as per HPI. Negative:nausea, vomiting, constipation, chest pain, shortness of breath, cough, dysuria, hematuria hematochezia, melena, hematemesis. All other systems reviewed and are negative. Physical Exam Triage Vital Signs T: 99.9 F HR: 130 RR: 18 BP: 129/86 SPO2: 99% O2 Delivery: Room air HT: 152.40 cm WT: 93.89 kg BMI: 40.42 kg/m2 General Appearance: No acute distress, well-appearing HEENT: Normocephalic/atraumatic. PERRL. No nasal discharge. Poor dentition throughout. Patient has a periapical abscess in tooth #19 that patient is able to express pus out of it as the tooth is broken almost at the root. Patient reports she has had this abscess off and on for about a year and now it is starting to have more pus coming out as well. Patient also reports she has another 1 in tooth #2 but that one has already drained per patient.. Neck supple and without meningismus Cardiac: tachycardic. No murmurs/rubs or gallops. There is no peripheral edema, cyanosis or pallor. Lungs: Clear to auscultation bilaterally without rales, rhonchi, wheezing or diminished breath sounds. Abdomen: Soft, non-distended, tenderness over the umbilical region where patient has known umbilical hernia. No guarding or rebound. No masses appreciated. Musculoskeletal: No joint deformity, erythema, or tenderness. Full ROM all major joints. Normal gait. Neurological: Grossly normal motor, sensory, and mental status examination.. Skin: Skin normal color, texture and turgor with no rash present. ED Course Differential Diagnosis Intra-abdominal infection, intra-abdominal abscess, periapical abscess, sepsis Orders LR Bolus, 1,000 mL, IV Hydration Bolus, ONCE cefTRIAXone, 1 gm, 1 Vial, IV PUSH, ONCE Diagnostics Computerized Tomography Result Type: CT Abdomen/Pelvis WO Contrast Result Date: November 15, 2020 20:46 PDT Reason For Exam: Abdominal Pain REPORT: PROCEDURE: CT Abdomen/Pelvis WO ContrastEXAM DATE: 11/15/2020 8:46 PM ORDERING CLINICIAN: Josh Becker MDINDICATION: Abdominal PainCOMPARISON: None.Procedure: A crib clerk view of the abdomen and pelvis was constructed. Axial scans were obtained through the abdomen and pelvis without contrast administration. Automated exposure control with adjustment of the mA and/or kV according to patient size, along with iterative reconstruction techniques, were utilized for optimal dose reduction.CT abdomen findings:The lung bases are clear. There is fatty infiltration of the liver, without focal abnormality. The gallbladder is surgically absent. The spleen is normal. There is no ascites. There is a 3.4 cm left renal cyst. The right kidney and adrenal glands are within normal limits. The pancreas is unremarkable. There is no retroperitoneal or mesenteric lymphadenopathy. The vascular structures of the abdomen are normal. There is small fat-containing umbilical hernia.CT pelvis findings:There is wall thickening and adjacent stranding in the ascending colon. The bowel is otherwise normal. The uterus and adnexal regions are within normal limits. There is a metallic foreign body in the left gluteus olive muscle.. There is no pelvic mass. The bladder is normal. Impression: Wall thickening and adjacent stranding in the ascending colon consistent with colitis.Fatty infiltration of the liver.Cholecystectomy.Left renal cyst.Small fat-containing umbilical hernia.CTDI (vol): 16.51 mGyDLP (mGy-cm): 843.44 mGy Dictated and Signed by: Juan Vicente MD on 11/16/2020 8:05 AM Order Name: ECG 12 Lead - CV (ED) Date Performed: 11/15/2020 19:50:15 PDT Status: Signed Impression: SINUS TACHYCARDIA NONSPECIFIC ANTEROSEPTALT-WAVE ABNORMALITY Compared to trace dated 06/27/2011 02:33:53 Ventricular rate has increased from 72 T waves are more abnormal ABNORMAL ECG Electronic Signature: MD Ashvin, Shelton Soto 11/17/2020 11:31:04 Re-evaluation Patient was stable at time of discharge with normal vitals and reported feeling well and asking to be discharged home Medical Decision Making Patient was examined and evaluated. Patient's physical exam significant for periumbilical tenderness as described in the physical exam section above. Patient was also tachycardic to 130. At this point given patient's heart rate with reported abdominal pain and subjective fevers and chills septic type work-up was obtained and patient was given IV fluids and IV antibiotics. I suspected that patient's symptoms could be either due to her recent COVID-19 contact as we know the COVID-19 test is not necessarily sensitive. Another thought I had was that patient's symptoms and vital abnormalities could have been due to patient's dental abscesses. Either way given patient's complaints CT of the abdomen and pelvis was also added. CT showed umbilical hernia which patient already knew she had and she reported that she wanted to know if the hernia was strangulated or not. It also showed possible colitis of the ascending colon, however, patient did not seem very tender over that region and was only tender around the periumbilical region. Laboratories were relatively unremarkable. By this point patient's vitals were within normal limits and patient was well-appearing and ready to be discharged home. At this point patient was discharged home with p.o. antibiotics for her periapical abscess that is already draining and patient was instructed to follow-up with dentist DOM. Return precautions given. Patient was agreeable with plan and had no further questions or concerns. Diagnosis 1. Periapical abscess (Periapical abscess without sinus, K04.7) 2. Umbilical hernia Condition Good Disposition Discharge to Home Prescriptions Clindamycin Patient Education Dental Abscess Follow-Up Provider: AUDREY White, Bird Daley Date: Within 1-2 days Comment: Take antibiotics as prescribed. Follow-up with your dentist within this week for evaluation of your abscess. Please come back in 48 hours for recheck and evaluation. Come back before then if you have any new or worsening symptoms. Address: [address] [place] [address]- [facility] – [place] Information SYLVESTERI /NORI/AUDREY Time Patient Seen face to face: Date and time 11/15/2020 19:09:24 Past Medical History Active Problems No active problems Allergies Demerol Latex Phenergan Pyridium Toradol Vicodin doxycycline fentanyl lidocaine prednisone Home Medications albuterol CFC free 90 mcg/inh Inhaler, 2 Puff, INH, Q4H, PRN lamoTRIgine 25 mg oral tablet, 25 mg, 1 Tab, ORAL, DAILY Multivitamins oral capsule, 1 Cap, ORAL, DAILY naproxen 500 mg oral tablet, 500 mg, 1 Tab, ORAL, BID, PRN traMADol 50 mg oral tablet, 50 mg, 1 Tab, ORAL, Q4H, PRN Tylenol Tylenol with Codeine #3 oral tablet, 1 Tab, ORAL, Q4H, PRN Vitamin C Vitamin D, 400 IntUnit, ORAL, DAILY Social History *Alcohol Screen How often do you have a drink containing alcohol? Never (0). *Substance Abuse Screen Do you have concerns about substance abuse for yourself or in your household? No. *Tobacco Use Screen Tobacco Use: Former smoker. Tobacco Type: Cigarettes. pack(s) per day 0. Smokeless tobacco type amt used per day: trying to quit, states she hasn't smoked in a couple of days. Family History Family history is negative Lab Results Labs (Last charted value) WBC 10.2 (11/15/20) Hgb 13.2 (11/15/20) Hct 38.2 (11/15/20) Plt 274 (11/15/20) Na L 135 (11/15/20) K 3.6 (11/15/20) CO2 23 (11/15/20) Cl 104 (11/15/20) Cr 0.8 (11/15/20) BUN 11 (11/15/20) Glucose Random H 150 (11/15/20) Glucose Fasting H 106 (04/04/20) Mg L 1.7 (11/15/20) Ca 9.3 (11/15/20) PT 10.2 (09/28/14) INR 0.98 (09/28/14) PTT 26 (08/06/06) [id number] Female 11/17/2020 [facility] ED Physician Notes Patient: ROSE CAIN Age: 40 years Legal Sex: FEMALE : 1980 Chief Complaint patient feeling tired,lethargic since Tuesday. Has had low grade fever at home. Taking tylenol and Ibuprofen. Patient states he nephew's mother was recently diagnosed with covid, so patient felt she needed to come get checked out. Mode of Arrival Walk-In History of Present Illness Is a 40-year-old presents chief plaint having feeling tired and lethargic since Tuesday. Has low-grade fever at home and now presents for evaluation patient is a relative that is apparently positive for Covid. Now she presents for evaluation she also has a sore throat when the last time she had strep throat she really did not have any exudate on her tonsils. And now she presents valuation she has low-grade fevers at home does not have fever right now. Review of Systems Constitutional: Negative. EENT: Sore throat body aches cough Respiratory: Negative. Cardiovascular: Negative. Gastrointestinal: Negative. Genitourinary: Negative. Hematology/Lymphatics: Negative. Endocrine: Negative. Immunologic: Negative. Musculoskeletal: Negative Skin: Negative. Neurologic: Negative. Psychiatric: Negative. Physical Exam Triage Vital Signs O2 sat 98% HT: 154 cm WT: 88.5 kg BMI: 24.46 - General Appearance: Uncomfortable adult HEENT: Normocephalic. PERRL. No nasal discharge. Oral cavity and pharynx normal. gingiva in good general condition. NECK: supple, non-tender without lymphadenopathy, masses or thyromegaly. Cardiac: Normal rate and rhythm. There is no peripheral edema, cyanosis or pallor. Lungs: Clear to auscultation without rales, rhonchi, wheezing or diminished breath sounds. Abdomen: Positive bowel sounds. Soft, non-distended, non-tender. No guarding or rebound. No masses.No RLQ tenderness. Musculoskeletal: No joint deformity, erythema, or tenderness. Full ROM all joints. Neurological: Normal motor, sensory. Reflexes 2+ throughout. CN II-XII Grossly normal. No Kernig's No Brudzinski, no nuchal rigidity Skin: Skin normal color, texture and turgor with no rash present. Genitalia: Deferred. Psychiatric: Demonstrated good judgment and reason and normal affect during examination. Medical Decision Making This is a 40-year-old presents chiefly having cough. And a little bit of a sore throat and low-grade fever I think is likely she has Covid. But we will do a Covid swab will also get a strep swab on her to but I do not think that can be positive. She will call in for several hours for results of these test. Diagnosis Viral syndrome Possible COVID-19 Condition Stable Disposition _Home please call for results. Patient Education COVID19 Positive or Pending Results (Custom) Viral Syndrome (Adult) Follow-Up Provider: Follow up with primary care provider Date: In 1 day 11/15/2020 Comment: Please call in 2 hours for your strep result and 4 hours for your Covid result Provider: Bird White Date: Within 1-2 days Address: [address] [place] [id number]- [facility] (1) [facility] – [place] Information SYLVESTERI MD/CAR TRIMMER/PA Time Patient Seen face to face: Date and time 11/14/2020 20:56:08 Past Medical History Active Problems No active problems Allergies Demerol Latex Phenergan Pyridium Toradol Vicodin doxycycline fentanyl lidocaine prednisone Home Medications albuterol CFC free 90 mcg/inh Inhaler, 2 Puff, INH, Q4H, PRN lamoTRIgine 25 mg oral tablet, 25 mg, 1 Tab, ORAL, DAILY Multivitamins oral capsule, 1 Cap, ORAL, DAILY naproxen 500 mg oral tablet, 500 mg, 1 Tab, ORAL, BID, PRN traMADol 50 mg oral tablet, 50 mg, 1 Tab, ORAL, Q4H, PRN Tylenol Tylenol with Codeine #3 oral tablet, 1 Tab, ORAL, Q4H, PRN Vitamin C Vitamin D, 400 IntUnit, ORAL, DAILY Social History *Alcohol Screen How often do you have a drink containing alcohol? Never (0). *Substance Abuse Screen Do you have concerns about substance abuse for yourself or in your household? No. *Tobacco Use Screen Tobacco Use: Former smoker. Tobacco Type: Cigarettes. pack(s) per day 0. Smokeless tobacco type amt used per day: trying to quit, states she hasn't smoked in a couple of days. Family History Family history is negative [id number] Female 11/15/2020 [facility] ED Physician Notes Patient: ROSE ACIN Age: 39 years Legal Sex: FEMALE : 1980 Chief Complaint Dysuria, frequency and pelvic pain for 4 days. no fever or chills reported. Mode of Arrival Walk-In History of Present Illness 39yo F hx of UTIs presenting with 4 days of dysuria and increased urinary frequency. Associated with mild suprapubic and pelvic pain. She has a history of UTIs, states that she has had UA negative in the past then culture positive. She is allergic to pyridium, has been taking tylenol and ibuprofen for pain. No abnormal vaginal discharge, vaginal bleeding, fevers, chills, back pain, upper abdominal pain, nausea or vomiting. She is sexually active with her only and is not concerned about STI. Review of Systems Constitutional: no fever, no chills ENMT: no sore throat, no neck pain Respiratory: no cough, no shortness of breath Cardiovascular: no chest pain, no palpitations Gastrointestinal: nonausea, no vomiting, no abdominal pain Genitourinary: + dysuria, + urinary frequency Musculoskeletal: no swelling Skin:norash,nowounds Physical Exam Triage Vital Signs T: 98.1 F HR: 65 RR: 18 BP: 116/72 SPO2: 100% HT: 154 cm WT: 88.5 kg BMI: 24.46 - Constitutional: well developed, wellnourished, appears well Head: atraumatic, normocephalic Eyes: pupils equal, normalconjunctiva, noscleral icterus Neck: supple, grossly normal range of motion Cardiovascular: normal rate, no cyanosis or pallor, warm and well-perfused Respiratory: normal work of breathing, speaking full sentences, no stridor or retractions Gastrointestinal: soft, obese, non-distended, no tenderness to palpation, no rebound, no guarding Extremities: no peripheral edema, normal distal pulses Neurological: awake, oriented x4, moving all extremities equally, speech normal Skin: warm, dry, no rashes on exposed areas of skin Psychiatric: normal affect, good judgment ED Course 39yo F presenting with 4 days of dysuria and increased frequency. She is alert and oriented, afebrile, hemodynamically stable and otherwise well-appearing with no other complaints. Her UA does not show any sign of infection. Called lab to ensure that they are sending a culture. Findings discussed with patient and she is agreeable with plan to await culture. She has been taking tylenol for pain and will continue, as she cannot take pyridium. She has follow up with PCP next week. Return precautions given and patient verbalized understanding. Differential Diagnosis UTI, interstitial cystitis, pelvic pain, doubt cervicitis, doubt PID, doubt TOA, doubt appendicitis, doubt diverticulitis Re-evaluation UA 1-2 WBCs, 3-5 RBCs, no clear infection. Spoke with lab to make sure culture is sent. Patient has follow up with her PCP on Tuesday. Findings discussed with patient and she is agreeable to waiting for urine cx results. Medical Decision Making Diagnosis Dysuria (Dysuria, R30.0) Condition Stable Disposition Discharged Patient Education Urine Culture Follow-Up Provider: Bird White Date: Within 3-5 days Comment: You were seen in the ER today for urinary symptoms, but your urine testing did not show definite signs of infection. Your urine culture is still pending, and you will receive a phone call for any abnormal results in the next 2 to 3 days. Continue to take Tylenol or ibuprofen as needed for pain, and drink plenty of water. Follow-up with your primary care physician for reevaluation. Return to the ER for any new or worsening problems. Address: [address] [place] [id number]- Business (1) MSEI Information MSEI MD/CAR TRIMMER/PA Time Patient Seen face to face: Date and time 09/19/2020 22:26:11 Past Medical History Active Problems No active problems Allergies Demerol Latex Phenergan Pyridium Toradol Vicodin doxycycline fentanyl lidocaine prednisone Home Medications albuterol CFC free 90 mcg/inh Inhaler, 2 Puff, INH, Q4H, PRN lamoTRIgine 25 mg oral tablet, 25 mg, 1 Tab, ORAL, DAILY Multivitamins oral capsule, 1 Cap, ORAL, DAILY naproxen 500 mg oral tablet, 500 mg, 1 Tab, ORAL, BID, PRN traMADol 50 mg oral tablet, 50 mg, 1 Tab, ORAL, Q4H, PRN Tylenol Tylenol with Codeine #3 oral tablet, 1 Tab, ORAL, Q4H, PRN Vitamin C Vitamin D, 400 IntUnit, ORAL, DAILY Social History *Alcohol Screen How often do you have a drink containing alcohol? Never (0). *Substance Abuse Screen Do you have concerns about substance abuse for yourself or in your household? No. *Tobacco Use Screen Tobacco Use: Former smoker. Tobacco Type: Cigarettes. pack(s) per day 0. Smokeless tobacco type amt used per day: trying to quit, states she hasn't smoked in a couple of days. Family History Family history is negative Lab Results Labs All 24H Lab Results Date POCT - hCG Urine Qual Pregnanc Negative - 09/19/20 21:33 PDT POCT - UR Appearance Slightly Cloudy 09/19/20 21:33 PDT POCT - UR Color Dark yellow 09/19/20 21:33 PDT Urine Culture Y/N No 09/19/20 21:32 PDT UA - Source/Collect Type Urine Clean Cat 09/19/20 21:32 PDT UA - Color Yellow 09/19/20 21:32 PDT UA - Appearance Clear 09/19/20 21:32 PDT UA - Specific Hope 1.026 - (HIGH) 09/19/20 21:32 PDT UA - pH 6 09/19/20 21:32 PDT UA - Protein 30 mg/dL (ABNORMAL) 09/19/20 21:32 PDT UA - Glucose Negative mg/dL 09/19/20 21:32 PDT UA - Ketones Negative mg/dL 09/19/20 21:32 PDT UA - Bilirubin Negative 09/19/20 21:32 PDT UA - Blood Small (ABNORMAL) 09/19/20 21:32 PDT UA - Urobilinogen Negative mg/dL 09/19/20 21:32 PDT UA - Nitrites Negative 09/19/20 21:32 PDT UA - Leukocyte Esterase Negative 09/19/20 21:32 PDT UA - WBC 1-2 /HPF 09/19/20 21:32 PDT UA - RBC 3-5 /HPF (ABNORMAL) 09/19/20 21:32 PDT UA - Epithelials, Squamous Few /LPF 09/19/20 21:32 PDT UA - Bacteria Negative /HPF 09/19/20 21:32 PDT UA - Mucus Many /LPF (ABNORMAL) 09/19/20 21:32 PDT POCT - UR Specific Hope 1.025 - 09/19/20 21:33 PDT POCT - UR pH 6.0 09/19/20 21:33 PDT POCT - UR Protein Negative mg/dL 09/19/20 21:33 PDT POCT - UR Glucose Negative mg/dL 09/19/20 21:33 PDT POCT - UR Ketones Negative mg/dL 09/19/20 21:33 PDT POCT - UR Bilirubin Negative 09/19/20 21:33 PDT POCT - UR Blood Small (ABNORMAL) 09/19/20 21:33 PDT POCT - UR Urobilinogen 0.2 mg/dL 09/19/20 21:33 PDT POCT - UR Nitrates Negative 09/19/20 21:33 PDT POCT - UR Leuk Esterase Negative 09/19/20 21:33 PDT 09/20/2020 [facility] ED Physician Notes Patient: ROSE CAIN Age: 38 years Sex: FEMALE : 1980 Chief Complaint Dental pain. Multiple teeth broken. Two with puss on the left. Dental surgery canceled due to COVID lockdown per pt. Mode of Arrival Walk-In History of Present Illness 38-year-old female complains of a worsening of her long-term dental problems. She has an apparent allergy to all lidocaine derivatives and so cannot have her teeth extracted except under general anesthesia. She was cleared to have this done at [facility] but the appointments were canceled due to the current SARS pandemic. So over the last several days she has had worsening of her dental pain especially her left lower rear molars and has draining purulence, pain radiating back towards her ear. Every time this is happened in the recent past penicillin has not helped, so she requests clindamycin. Review of Systems Constitutional: No fever, chills, weight loss, weakness. EENT: No sore throat, nasal congestion, ear pain, vision changes. Respiratory: No shortness of breath or wheeze. Cardiovascular: No chest pain or palpitations. Gastrointestinal: No abdominal pain, nausea or vomiting. No diarrhea. Genitourinary: No dysuria or hematuria Musculoskeletal: No joint pain or swelling. Skin: No rash or lesion. Neurologic: No focal numbness or weakness. No seizures. All other review of systems is negative. Physical Exam Triage Vital Signs T: 98.7 F HR: 69 RR: 12 BP: 121/74 SPO2: 97% HT: 154 cm WT: 88.5 kg(Dose Calc Wt.) WT: 88.5 kg BMI: 24.46 - General Appearance: No acute distress. HEENT: NCAT. Pupils PERRL, EOM's intact, sclera anicteric. Mucus membranes moist. Multiple dental caries, left lower rear molars are eroded, there is purulence weeping from a tiny hole but no pointing abscess. TMs clear. Neck supple without lymphadenopathy. Cardiac: Normal sinus rhythm. Lungs: Clear, non-labored. Abdomen: Soft, non-distended. Neurological: Cranial nerves II-XII grossly intact. Patient is alert and conversant. Non-focal neuro exam. Skin: No rash or lesion. Musculoskeletal: No joint tenderness or loss of range of motion. Psychiatric: Alert and interactive with normal affect. MDM 38-year-old female with long-term dental problems, I reviewed previous notes which correlate with her story, wrote her prescription for clindamycin, encouraged her to follow-up with her dentist, she had tried but was unable to get an appointment, I wrote her a work note today. Comfortable with that plan. At this point she has no trismus or evidence of a drainable abscess or significant facial cellulitis. Diagnosis Dental abscess Condition Stable Disposition Discharged Prescriptions Prescribed Medications 07/09/2019 13:23 PDT clindamycin, = 1 Cap, ORAL, Q6H, X 10 Day(s), # 40 Cap, Indication= Other (Please specify in comments), 0 Refill(s), Dental abscess, Acute, Pharmacy: [facility] #[id number], 154, cm, 07/09/19 13:10:00 PDT, Height/Length (cm), 88.5, kg, 07/09/19 13:10:00 PDT, Dose calcul... Patient Education Dental Abscess Follow-Up Provider: Your Dentist Date: In day 07/10/2019 MSEI Information MSEI MD/CAR TRIMMER/PA Time Patient Seen face to face: Date and time 07/09/2019 13:13:13 Past Medical History Active Problems No active problems Allergies Demerol Latex Phenergan Pyridium Toradol Vicodin doxycycline fentanyl lidocaine prednisone Home Medications albuterol CFC free 90 mcg/inh Inhaler, 2 Puff, INH, Q4H, PRN clindamycin 300 mg oral capsule, 300 mg, 1 Cap, ORAL, Q6H lamoTRIgine 25 mg oral tablet, 25 mg, 1 Tab, ORAL, DAILY Multivitamins oral capsule, 1 Cap, ORAL, DAILY naproxen 500 mg oral tablet, 500 mg, 1 Tab, ORAL, BID, PRN traMADol 50 mg oral tablet, 50 mg, 1 Tab, ORAL, Q4H, PRN Tylenol Tylenol with Codeine #3 oral tablet, 1 Tab, ORAL, Q4H, PRN Vitamin C Vitamin D, 400 IntUnit, ORAL, DAILY Social History *Alcohol Screen How often do you have a drink containing alcohol? Never (0). *Substance Abuse Screen Do you have concerns about substance abuse for yourself or in your household? No. *Tobacco Use Screen Is there a smoker in the household? No. Family History Family history is negative 07/09/2019 [facility] ED Physician Notes Patient: ROSE CAIN Age: 38 years Sex: FEMALE : 1980 Chief Complaint POSS UTI Mode of Arrival Walk-In History of Present Illness 38-year-old female with history of frequent urinary tract infections presents for evaluation of a several day history of urinary symptoms. She states her symptoms worsened last night, she was unable to sleep due to the burning sensation the frequency of urine. This is associated with lower abdominal cramping and low back pain, however no flank pain, no nausea, vomiting, chills, fevers. She did try to call her primary, however the soonest visit is not available until this coming , and she is concerned that if she waits that long the infection will moved to her kidneys. She does state that her last 2 urinary tract infections had a negative dip, however the culture returned positive for infection. She denies other acute medical complaints. Review of Systems Constitutional: Negative. EENT: Negative. Respiratory: Negative. Cardiovascular: Negative. Gastrointestinal: Negative. Genitourinary: Dysuria. Hematology/Lymphatics: Negative. Endocrine: Negative. Immunologic: Negative. Musculoskeletal: Negative Skin: Negative. Neurologic: Negative. Psychiatric: Negative. Physical Exam Triage Vital Signs T: 98.0 F HR: 78 RR: 18 BP: 137/69 SPO2: 99% HT: 162 cm WT: 88.1 kg(Dose Calc Wt.) WT: 88.1 kg BMI: 24.46 - Elevated blood pressure, otherwise General Appearance: No acute distress. HEENT: Normocephalic. No nasal discharge. Oral cavity and pharynx normal. NECK: Supple, non-tender without lymphadenopathy, masses or thyromegaly. Cardiac: Normal rate and rhythm. No peripheral edema, cyanosis or pallor. Lungs: No increased work of breathing. Clear to auscultation without rales, rhonchi, wheezing or diminished breath sounds. Abdomen: Bowel sounds normoactive. Soft, non-distended, non-tender. No guarding or rebound. No masses. No RLQ tenderness. Negative Luna's. No CVAT. Musculoskeletal: No joint deformity, erythema, or tenderness. Full ROM all joints. Neurological: Normal motor, sensory. CN II-XII grossly normal. Skin: Skin normal color, texture and turgor with no rash present. Genitalia: Deferred. Psychiatric: Demonstrated good judgment and reason. Normal affect during examination. ED Course Orders cephalexin (Keflex), 500, mg, ORAL, ONCE MDM 38-year-old female presents for evaluation of urinary symptoms. Her exam is benign with no abdominal tenderness, no CVA tenderness. Her urinalysis shows small leukocyte esterase, small blood, hazy in appearance, few bacteria. This in itself is not convincing for urinary tract infection, however combined with her current reported severe symptoms and her history of urinary tract infections found primarily by culture, we will initiate treatment with Keflex. She is unable to take Pyridium due to an allergy. She is stable for discharge with close follow-up with primary care. She received my usual and customary discussion regarding urinary tract infection which she verbalizes understanding of. Indications for return reviewed. Diagnosis Urinary tract infection Condition Stable Disposition Discharge to Home Prescriptions Prescribed Medications 06/03/2019 09:44 PDT cephalexin, = 1 Cap, ORAL, QID, X 7 Day(s), # 28 Cap, Indication= UTI, uncomplicated, 0 Refill(s), Acute, Pharmacy: [facility] #[id number], 162, cm, 06/03/19 9:31:00 PDT, Height/Length (cm), 88.1, kg, 06/03/19 9:31:00 PDT, Dose calculation weight (kg) Patient Education Bladder Infection, Female (Adult) Hypertension, To Be Confirmed Follow-Up Provider: Bird White Date: Within 1-2 days Comment: I have sent your prescription to [email or web address], which is open for [facility], they open at 10. Please follow-up with your primary. Return to the emergency department immediately for any new or worsening symptoms. Address: [address] [place] [address] [facility] (1) MSEI Information SYLVESTERI /CAR TRIMMER/PA Time Patient Seen face to face: Date and time 06/03/2019 09:24:03 Past Medical History Active Problems No active problems Allergies Demerol Latex Phenergan Pyridium Toradol Vicodin doxycycline fentanyl lidocaine prednisone Home Medications albuterol CFC free 90 mcg/inh Inhaler, 2 Puff, INH, Q4H, PRN lamoTRIgine 25 mg oral tablet, 25 mg, 1 Tab, ORAL, DAILY Multivitamins oral capsule, 1 Cap, ORAL, DAILY naproxen 500 mg oral tablet, 500 mg, 1 Tab, ORAL, BID, PRN traMADol 50 mg oral tablet, 50 mg, 1 Tab, ORAL, Q4H, PRN Tylenol Tylenol with Codeine #3 oral tablet, 1 Tab, ORAL, Q4H, PRN Vitamin C Vitamin D, 400 IntUnit, ORAL, DAILY Social History *Alcohol Screen How often do you have a drink containing alcohol? Never (0). How many standard drinks containing alcohol do you have on a typical day? Never (0). *Substance Abuse Screen Do you have concerns about substance abuse for yourself or in your household? No. Current or past use? Never. *Tobacco Use Screen Is there a smoker in the household? No. Do you have concerns about tobacco use in household? No. Family History Family history is negative Lab Results Labs All 24H Lab Results Date POCT - UR Appearance Clear 06/03/19 09:37 PDT POCT - UR Color Yellow 06/03/19 09:37 PDT Urine Culture Y/N Yes 06/03/19 09:36 PDT UA - Source/Collect Type Urine Voided 06/03/19 09:36 PDT UA - Color Yellow 06/03/19 09:36 PDT UA - Appearance Hazy (ABNORMAL) 06/03/19 09:36 PDT UA - Specific Hope 1.029 - (HIGH) 06/03/19 09:36 PDT UA - pH 5 06/03/19 09:36 PDT UA - Protein Negative mg/dL 06/03/19 09:36 PDT UA - Glucose Negative mg/dL 06/03/19 09:36 PDT UA - Ketones Negative mg/dL 06/03/19 09:36 PDT UA - Bilirubin Negative 06/03/19 09:36 PDT UA - Blood Small (ABNORMAL) 06/03/19 09:36 PDT UA - Urobilinogen Negative mg/dL 06/03/19 09:36 PDT UA - Nitrites Negative 06/03/19 09:36 PDT UA - Leukocyte Esterase Small (ABNORMAL) 06/03/19 09:36 PDT UA - WBC 3-5 /HPF 06/03/19 09:36 PDT UA - RBC 3-5 /HPF (ABNORMAL) 06/03/19 09:36 PDT UA - Epithelials, Squamous Few /LPF 06/03/19 09:36 PDT UA - Bacteria Few /HPF (ABNORMAL) 06/03/19 09:36 PDT UA - Mucus Few /LPF 06/03/19 09:36 PDT POCT - UR Specific Hope >=1.030 - (ABNORMAL) 06/03/19 09:37 PDT POCT - UR pH 6.0 06/03/19 09:37 PDT POCT - UR Protein Negative mg/dL 06/03/19 09:37 PDT POCT - UR Glucose Negative mg/dL 06/03/19 09:37 PDT POCT - UR Ketones Negative mg/dL 06/03/19 09:37 PDT POCT - UR Bilirubin Negative 06/03/19 09:37 PDT POCT - UR Blood Moderate (ABNORMAL) 06/03/19 09:37 PDT POCT - UR Urobilinogen 0.2 mg/dL 06/03/19 09:37 PDT POCT - UR Nitrates Negative 06/03/19 09:37 PDT POCT - UR Leuk Esterase Trace (ABNORMAL) 06/03/19 09:37 PDT 06/03/2019 [facility] Emergency Department Report Service Date: 12/31/2018 CONSULT TIME: 2100. CHIEF COMPLAINT: Tooth abscess. HISTORY OF PRESENT ILLNESS: This is a 38-year-old female who presents complaining of left-sided facial swelling, left lower molar discomfort with surrounding gum pain and swelling. Patient is reportedly 'ALLERGIC TO LIDOCAINE' and has seizures when she receives lidocaine. She is going to require general anesthesia and has a dentist appointment that had been set up at [facility]; however, she states that something fell through. They were unable to perform her extraction and so she was actually doing well, but had recurrence of the swelling several days ago. She states that she is generally resistant to PENICILLIN and requires clindamycin. She is requesting clindamycin and declined any pain medication at this time. REVIEW OF SYSTEMS: CONSTITUTIONAL: No fevers, no chills. NEUROLOGIC: No seizure, no syncope. EYES: No vision changes or eye pain. EARS, NOSE: No rhinorrhea or congestion. OROPHARYNX: No sore throat, no difficulty swallowing. Left back lower molar as described. No sublingual submandibular swelling, no difficulty with range of motion of the jaw. EARS, NOSE, AND THROAT: No ear pain. No rhinorrhea. PULMONARY: No cough or shortness of breath. CARDIAC: No chest pain. GASTROINTESTINAL: No nausea, vomiting. MUSCULOSKELETAL: No focal areas of pain or swelling. SKIN: No rash, no overlying erythema, mild swelling of the face. HEMATOLOGIC: No petechia, no hematomas. Remainder of review of systems negative unless otherwise noted. PHYSICAL EXAMINATION: VITAL SIGNS: Temperature 97.9, pulse 85, respiratory rate is 19, blood pressure is 131/85 and pulse ox is 97% on room air. GENERAL: This is a pleasant woman, sitting upright in the gurney in no acute distress. HEAD: Atraumatic. EYES: PERRL, anicteric. EARS, NOSE AND THROAT: She has normal external appearance of ears and nose. No significant facial swelling appreciated. Oropharynx reveals poor dentition with a cracked left lower molar tooth with surrounding erythema. She reports discharge though I am unable to express any. No sublingual swelling. No submandibular swelling, no evidence of trismus. NECK: Supple with painless full range of motion, mild shotty anterior cervical lymphadenopathy along the left. PULMONARY: Speaking in complete sentences. CARDIAC: 2+ radial pulses. Cap refill less than 3. NEUROLOGIC: Alert and oriented x4, answering questions appropriately. Moving all 4 extremities. SKIN: Warm and dry without any overlying erythema. HEMATOLOGIC: No petechia, no hematomas. EMERGENCY DEPARTMENT COURSE: This is a pleasant 38-year-old female who presents complaining of left lower molar abscess and pain. Patient does have area of erythema surrounding the left lower molar. No pus able to be expressed. She does not have evidence of deep space infection such Roby and she does not appear toxic at this time per patient. She is unable to receive any -shaquille products (though she should be able to receive bupivacaine) but she reports that she has been told she will have seizures, to any shaquille. The patient has not had a seizure in over 6 months. She denies chest pain, palpitations. No other acute complaints at this time. Patient states that she cannot take PENICILLIN, I reviewed her medical records and she has stated this on several visits. It is possible that she is actually resistant. The patient was given a prescription for clindamycin and asked to follow up with her dentist as soon as possible. She states that she plans to call them tomorrow. She was given standard return precautions and she expressed verbal understanding of plan. DIAGNOSIS: Left lower molar dental abscess. DISPOSITION: Home. FOLLOWUP: With [facility] dental. CONDITION: Stable. Aniya Zepeda [facility], 01/14/2019 21:56:36 PST. Conf # [id number] [facility], 01/14/2019 22:52:51 PST. Dictation ID [id number] 01/15/2019 [facility] ED Physician Notes Patient: ROSE CAIN Age: 38 years Sex: FEMALE : 1980 Chief Complaint toothache for over a year Mode of Arrival Walk-In History of Present Illness 38-year-old female with history of poor dentition secondary to her antiseizure medications presents for evaluation of dental abscess that has been increasing in pain with swelling to the left side of her face for the last 2 days. Pain is radiating back to her ear. She does report purulent drainage from the tooth on the left lower molar, which is broken at the gumline. Unfortunately she is allergic to lidocaine and requires general anesthesia to have 4 teeth pulled, has been having difficulty with the referral process through her dentist to [facility]. She denies difficulty swallowing or speaking, hasn't had fevers. She states that she needs a prescription for clindamycin as 'penicillin doesn't work on me anymore.' Eyes other acute medical complaints at this time. Review of Systems Constitutional: Negative. EENT: Dental abscess. Respiratory: Negative. Cardiovascular: Negative. Gastrointestinal: Negative. Genitourinary: Negative. Hematology/Lymphatics: Negative. Endocrine: Negative. Immunologic: Negative. Musculoskeletal: Negative Skin: Negative. Neurologic: Negative. Psychiatric: Negative. Physical Exam Triage Vital Signs T: 98.1 F HR: 65 RR: 16 BP: 132/87 SPO2: 99% O2 Delivery: Room air HT: 154 cm WT: 91.2 kg(Dose Calc Wt.) WT: 91.2 kg BMI: 24.46 - Borderline hypertensive, otherwise normal General Appearance: No acute distress. HEENT: Normocephalic. No nasal discharge. Tooth #19 fractured at the gumline with tenderness to palpation on the buccal aspect of the gingiva, erythema to the gingiva, no fluctuance, no visible drainage. No trismus NECK: Supple, non-tender without lymphadenopathy, masses or thyromegaly. Cardiac: No peripheral edema, cyanosis or pallor. Lungs: No increased work of breathing. Musculoskeletal: No joint deformity, erythema, or tenderness. Full ROM all joints. Neurological: Normal motor, sensory. CN II-XII grossly normal. Skin: Skin normal color, texture and turgor with no rash present. Genitalia: Deferred. Psychiatric: Demonstrated good judgment and reason. Normal affect during examination. ED Course Orders clindamycin, 300 mg, ORAL, ONCE MDM 38-year-old female presents for evaluation of dental abscess, requesting a prescription for clindamycin. On exam, she does appear to have a dental infection, with no evidence of a drainable abscess at this time, no evidence of deep space neck infection. We will give a dose of antibiotic here and a prescription to go, ask her to follow-up with her dentist to complete the referral to [facility]. She received my usual and customary discussion regarding dental abscess, to which she voiced understanding. Indications for return reviewed. Diagnosis Dental abscess Condition Stable Disposition Discharge to Home Prescriptions Prescribed Medications 11/07/2018 21:48 PDT clindamycin, = 1 Cap, ORAL, Q8H, X 10 Day(s), # 30 Cap, Indication= Dental abscess, 0 Refill(s), Acute Patient Education DENTAL ABSCESS Follow-Up Provider: Bird White Date: Within 1-2 days Comment: Take antibiotics as prescribed, next dose is due tomorrow morning. Please follow up with your dentist. Return to the emergency department immediately for any new or worsening symptoms. Address: [address] [place] [address] [facility] (1) MSEI Information SYLVESTERI /CAR TRIMMER/PA Time Patient Seen face to face: Date and time 11/07/2018 20:46:35 Past Medical History Active Problems No active problems Allergies Demerol Latex Phenergan Pyridium Toradol Vicodin doxycycline fentanyl lidocaine prednisone Home Medications albuterol CFC free 90 mcg/inh Inhaler, 2 Puff, INH, Q4H, PRN lamoTRIgine 25 mg oral tablet, 25 mg, 1 Tab, ORAL, DAILY Multivitamins oral capsule, 1 Cap, ORAL, DAILY naproxen 500 mg oral tablet, 500 mg, 1 Tab, ORAL, BID, PRN traMADol 50 mg oral tablet, 50 mg, 1 Tab, ORAL, Q4H, PRN Tylenol Tylenol with Codeine #3 oral tablet, 1 Tab, ORAL, Q4H, PRN Vitamin C Vitamin D, 400 IntUnit, ORAL, DAILY Social History *Alcohol Screen How often do you have a drink containing alcohol? Never (0). *Substance Abuse Screen Do you have concerns about substance abuse for yourself or in your household? No. *Tobacco Use Screen Is there a smoker in the household? No. Family History Family history is negative 11/08/2018 [facility] ED Physician Notes Patient: ROSE CAIN Age: 37 years Sex: FEMALE : 1980 Chief Complaint Pt complaining of urinary symptoms such as painful urination, burning, and frequency. Mode of Arrival Walk-In History of Present Illness 37-year-old female with history of frequent urinary tract infection presents for evaluation of 2 days of dysuria, burning, frequency, hesitancy, urgency. She denies fevers, nausea, vomiting, flank pain, abdominal pain. She states her last urinary tract infection was last year. She also states that when they check her urine it often does not show up as an obvious urinary tract infection, though does show up later with the urine culture. She is normally treated with Keflex, which helps her symptoms. She is denying other acute medical complaints at this time, reports being otherwise healthy. Review of Systems Constitutional: Negative. EENT: Negative. Respiratory: Negative. Cardiovascular: Negative. Gastrointestinal: Negative. Genitourinary: Urinary symptoms. Hematology/Lymphatics: Negative. Endocrine: Negative. Immunologic: Negative. Musculoskeletal: Negative Skin: Negative. Neurologic: Negative. Psychiatric: Negative. Physical Exam Triage Vital Signs T: 36.7 C HR: 71 RR: 18 BP: 125/71 SPO2: 99% O2 Delivery: Room air HT: 154.94 cm WT: 90.6 kg(Dose Calc Wt.) WT: 90.6 kg BMI: 24.46 Vital signs normal General Appearance: No acute distress. HEENT: Normocephalic. No nasal discharge. Oral cavity and pharynx normal. NECK: Supple, non-tender without lymphadenopathy, masses or thyromegaly. Cardiac: Normal rate and rhythm. No peripheral edema, cyanosis or pallor. Lungs: No increased work of breathing. Clear to auscultation without rales, rhonchi, wheezing or diminished breath sounds. Abdomen: Bowel sounds normoactive. Soft, non-distended, non-tender. No guarding or rebound. No masses. No RLQ tenderness. Negative Luna's. No CVAT. Musculoskeletal: No joint deformity, erythema, or tenderness. Full ROM all joints. Neurological: Normal motor, sensory. CN II-XII grossly normal. Skin: Skin normal color, texture and turgor with no rash present. Genitalia: Deferred. Psychiatric: Demonstrated good judgment and reason. Normal affect during examination. MDM 37-year-old female presents for evaluation of urinary symptoms for the last several days. Her exam is benign. Her urinalysis does not show obvious urinary tract infection, though does show 3-5 WBC, few bacteria, and moderate squamous epithelial cells, negative nitrates, negative leukocyte esterase. However symptoms are very classic for urinary tract infection. I'm inclined to treat her with antibiotics as she states that her history is similar to this with urinalysis initially not showing an obvious infection. We will start her on Keflex. I have low suspicion for pyelonephritis given her lack of flank pain, nausea, vomiting, fevers. She is stable for discharge with close follow up with primary care. She received my usual and customary discussion regarding urinary tract infection. Indications for return reviewed. Diagnosis Urinary tract infection Condition Stable Disposition Home Prescriptions Prescribed Medications 08/28/2018 21:17 PDT cephalexin, = 1 Cap, ORAL, BID, X 5 Day(s), # 10 Cap, Indication= Urinary Tract Infection (UTI), 0 Refill(s), Acute Patient Education Urinary Tract Infections in Women Follow-Up Provider: Bird White Date: Within 1-2 days Comment: Take antibiotics as prescribed, next dose is due tomorrow morning. Please follow-up with primary care. Return to the emergency department immediately for any new or worsening symptoms. Address: [address] [place] [address] [facility] () MSEI Information LOLITA JACINTO/CAR TRIMMER/PA Time Patient Seen face to face: Date and time 08/28/2018 20:11:28 Past Medical History Active Problems No active problems Allergies Demerol Latex Phenergan Pyridium Toradol Vicodin doxycycline fentanyl lidocaine prednisone Home Medications albuterol CFC free 90 mcg/inh Inhaler, 2 Puff, INH, Q4H, PRN lamoTRIgine 25 mg oral tablet, 25 mg, 1 Tab, ORAL, DAILY Multivitamins oral capsule, 1 Cap, ORAL, DAILY naproxen 500 mg oral tablet, 500 mg, 1 Tab, ORAL, BID, PRN traMADol 50 mg oral tablet, 50 mg, 1 Tab, ORAL, Q4H, PRN Tylenol Tylenol with Codeine #3 oral tablet, 1 Tab, ORAL, Q4H, PRN Vitamin C Vitamin D, 400 IntUnit, ORAL, DAILY Social History *Alcohol Screen How often do you have a drink containing alcohol? Never (0). *Substance Abuse Screen Do you have concerns about substance abuse for yourself or in your household? No. *Tobacco Use Screen Is there a smoker in the household? No. Family History Family history is negative Lab Results Labs All 24H Lab Results Date POCT - hCG Urine Qual Pregnanc Negative 08/28/18 20:25 PDT POCT - UR Appearance Clear 08/28/18 20:24 PDT POCT - UR Color Yellow 08/28/18 20:24 PDT Urine Culture Y/N Yes 08/28/18 20:16 PDT UA - Source/Collect Type Urine Voided 08/28/18 20:16 PDT UA - Color Yellow 08/28/18 20:16 PDT UA - Appearance Hazy (ABNORMAL) 08/28/18 20:16 PDT UA - Specific Hope 1.035 (HIGH) 08/28/18 20:16 PDT UA - pH 5 08/28/18 20:16 PDT UA - Protein 30 mg/dL (ABNORMAL) 08/28/18 20:16 PDT UA - Glucose Negative mg/dL 08/28/18 20:16 PDT UA - Ketones Negative mg/dL 08/28/18 20:16 PDT UA - Bilirubin Negative 08/28/18 20:16 PDT UA - Blood Moderate (ABNORMAL) 08/28/18 20:16 PDT UA - Urobilinogen Negative mg/dL 08/28/18 20:16 PDT UA - Nitrites Negative 08/28/18 20:16 PDT UA - Leukocyte Esterase Negative 08/28/18 20:16 PDT UA - WBC 3-5 /HPF 08/28/18 20:16 PDT UA - RBC 6-10 /HPF (ABNORMAL) 08/28/18 20:16 PDT UA - Epithelials, Squamous Moderate /LPF (ABNORMAL) 08/28/18 20:16 PDT UA - Bacteria Few /HPF (ABNORMAL) 08/28/18 20:16 PDT UA - Mucus Few /LPF 08/28/18 20:16 PDT POCT - UR Specific Hope >=1.030 (ABNORMAL) 08/28/18 20:24 PDT POCT - UR pH 5.5 08/28/18 20:24 PDT POCT - UR Protein 30 mg/dL (ABNORMAL) 08/28/18 20:24 PDT POCT - UR Glucose Negative mg/dL 08/28/18 20:24 PDT POCT - UR Ketones Negative mg/dL 08/28/18 20:24 PDT POCT - UR Bilirubin Small (ABNORMAL) 08/28/18 20:24 PDT POCT - UR Blood Moderate (ABNORMAL) 08/28/18 20:24 PDT POCT - UR Urobilinogen 0.2 mg/dL 08/28/18 20:24 PDT POCT - UR Nitrates Negative 08/28/18 20:24 PDT POCT - UR Leuk Esterase Negative 08/28/18 20:24 PDT 08/29/2018 [facility] ED Physician Notes Patient: ROSE CAIN Age: 37 years Sex: FEMALE : 1980 Chief Complaint Arrives with c/o upper and lower abscesses to teeth. States drainage from sites, with swollen cheek. Unable to get into dentist Mode of Arrival Walk-In History of Present Illness 37-year-old female with dental pain. She has a long history of dental pain that has worsened this past week. She has been seen by dentist in the the past. She has had recommendations to have oral surgery. She has not had good follow-up, and has been unable to schedule appointment with an oral surgeon. Review of Systems GENERAL: no fever no chills EENT: normocephalic, no changes in vision, no changes in hearing. Chronic dental pain Respiratory: no shortness of breath or difficulty breathing Cardiovascular: no chest pain or palpitations Gastrointestinal: no abdominal pain, nausea or vomiting Genitourinary: denies any urinary difficulties Endocrine: Negative. Immunologic: denies any current heat or cold intolerances Musculoskeletal: denies any current neck back or joint pain Skin: denies any recent rashes or suspicious lesions Neurologic: no headache or dizziness Psychiatric: denies any current anxiety or recent changes in mood Physical Exam Triage Vital Signs T: 98.2 F HR: 83 RR: 18 BP: 143/94 SPO2: 98% O2 Delivery: Room air HT: 154.94 cm WT: 91.3 kg(Dose Calc Wt.) WT: 91.3 kg BMI: 24.46 General Appearance: No acute distress. VS: Vital signs reviewed. EENT: Pupils equal reactive to light, ears: Auditory canals clear, tympanic membranes normal . Nose: Mucous membranes pink clear nasal discharge throat: No erythema no exudate. Mouth multiple dental carries, and missing teeth. (+) gingival swelling to LEFT lower molars Neck: supple without lymphadenopathy. Cardiac: Normal sinus rhythm. No murmurs. Lungs: Clear to auscultation. Abdomen: Soft, non-distended, non-tender. Bowel sounds present Neurological: Gross motor intact Skin: No rash present. Psychiatric: Alert and interactive. No unusual mood or behavior. ED Course Physical exam. Dispensed first dose of oral antibiotics Orders clindamycin, 300 mg, 2 Cap, ORAL, ONCE Flagyl, 500 mg, 2 Tab, ORAL, ONCE MDM Is a 37-year-old female who has long history of dental problems. She's had required tooth extractions in the past. She's had recommendations for further tooth extractions due to some underlying genetic problem with her teeth. She has taking Flagyl and clindamycin in the past with good results of previous dental abscesses. Because of patient's significant history of dental abscess I will treat for abscess today. On exam she is exquisitely tender her left lower molar but no obvious sign of abscess. I will treat with by mouth Flagyl, and by mouth clindamycin. She is instructed to follow up with dentist this week. Diagnosis Dental pain Gingival swelling Multiple dental caries Condition Stable Disposition Home MSEI Information MSEI /CAR TRIMMER/PA Time Patient Seen face to face: Date and time 08/02/2018 23:05:46 Past Medical History Active Problems No active problems Allergies Demerol Latex Phenergan Pyridium Toradol Vicodin doxycycline fentanyl lidocaine prednisone Home Medications albuterol CFC free 90 mcg/inh Inhaler, 2 Puff, INH, Q4H, PRN lamoTRIgine 25 mg oral tablet, 25 mg, 1 Tab, ORAL, DAILY Multivitamins oral capsule, 1 Cap, ORAL, DAILY naproxen 500 mg oral tablet, 500 mg, 1 Tab, ORAL, BID, PRN traMADol 50 mg oral tablet, 50 mg, 1 Tab, ORAL, Q4H, PRN Tylenol Tylenol with Codeine #3 oral tablet, 1 Tab, ORAL, Q4H, PRN Vitamin C Vitamin D, 400 IntUnit, ORAL, DAILY Social History *Alcohol Screen How often do you have a drink containing alcohol? Never (0). *Substance Abuse Screen Do you have concerns about substance abuse for yourself or in your household? No. *Tobacco Use Screen Is there a smoker in the household? No. Family History Family history is negative 08/03/2018 [facility] ED Physician Notes Patient: ROSE CAIN Age: 37 years Sex: FEMALE : 1980 Chief Complaint R HAND THUMB PAIN Mode of Arrival Walk-In History of Present Illness 37-year-old female presents for evaluation of a 5 day history of right thumb pain. She states pain started after she was stuffing a sleeping bag, her thumb got caught in the straining and severely hyperextended. She has been using [id number] analgesics and placed the thumb in a brace, however is concerned that the pain and swelling are not resolving, and she is having difficulty moving the thumb secondary to pain and swelling. Review of Systems Constitutional: Negative. EENT: Negative. Respiratory: Negative. Cardiovascular: Negative. Gastrointestinal: Negative. Genitourinary: Negative. Hematology/Lymphatics: Negative. Endocrine: Negative. Immunologic: Negative. Musculoskeletal: Right thumb pain Skin: Negative. Neurologic: Negative. Psychiatric: Negative. Physical Exam Triage Vital Signs T: 97.4 F HR: 81 RR: 18 BP: 124/83 SPO2: 100% HT: 154.94 cm WT: 91.2 kg(Dose Calc Wt.) WT: 91.2 kg BMI: 24.46 Vital signs normal General Appearance: No acute distress. HEENT: Normocephalic. No nasal discharge. NECK: Supple, non-tender without lymphadenopathy, masses or thyromegaly. Cardiac: No peripheral edema, cyanosis or pallor. Lungs: No increased work of breathing. Musculoskeletal: Diffuse tenderness to right thumb with minimal swelling, no erythema or ecchymosis, flexor and extensor tendons intact, no sausage digit, brisk capillary refill, full range of motion to wrist and hand Neurological: Normal motor, sensory. CN II-XII grossly normal. Skin: Skin normal color, texture and turgor with no rash present. Genitalia: Deferred. Psychiatric: Demonstrated good judgment and reason. Normal affect during examination. ED Course Diagnostics General Diagnostic Result Type: Finger Rt Min 2 Vw Result Date: July 15, 2018 18:06 PDT Reason For Exam: Trauma REPORT: EXAM: Finger Rt Min 2 VwORDERING PROVIDER: JARRED QuinnOMPARISON: None. INDICATION: Trauma. TECHNIQUE: 3 views of the right thumb. FINDINGS: There is no evidence of acute fracture or dislocation. There are no focal bone lesions seen. The joint spaces are within normal limits. IMPRESSION: No evidence of acute fracture or dislocation. 37-year-old female presents for evaluation of right thumb pain. She is denying need for pain medicine. On exam, she has diffuse tenderness to the thumb, with no deformity, flexor and extensor tendons intact. There is no evidence of any type of infectious process such as flexor tenosynovitis, cellulitis or paronychia. X-ray obtained, which is read as negative by the radiologist. This is likely a sprain from the sleeping bag incident. We we'll give her a Velcro thumb spica splint to use while she sleeps at night, she states the pain is worse when she wakes up in the morning due to sleeping on her hands. I have encouraged her not to use the splint /, and to continue with range of motion exercises. It is unfortunate that she has injured the thumb of her dominant hand; therefore I have asked her to follow up with primary care for further evaluation of the thumb pain in the event she requires physical therapy or other interventions. She is in agreement and understanding with the plan. Oh give a work note. She is stable for discharge with close follow-up with primary care. She received my usual and customary discussion regarding thumb sprains. Indications for return reviewed. Diagnosis Right thumb sprain Condition Stable Disposition Home Patient Education Work Release Form (AH) (Custom) R.I.C.E. SPRAIN FINGER Follow-Up Provider: Bird White Date: Within 1-2 days Comment: Use a thumb spica splint at night. Elevate your thumb when you have the chance. Apply ice for 20 minutes at a time several times a day. Please follow-up with your primary care provider for further evaluation of thumb sprain. Return to the emergency department immediately for any new or worsening symptoms. Address: [address] [place] [id number] [facility] (1) [facility] – [place] Information LOLITA JACINTO/CAR TRIMMER/PA Time Patient Seen face to face: Date and time 07/15/2018 17:02:52 Past Medical History Active Problems No active problems Allergies Demerol Latex Phenergan Pyridium Toradol Vicodin doxycycline fentanyl lidocaine prednisone Home Medications albuterol CFC free 90 mcg/inh Inhaler, 2 Puff, INH, Q4H, PRN Chloraseptic Cool Mint 1.4% topical spray, 5 [place], ORAL, Q4H lamoTRIgine 25 mg oral tablet, 25 mg, 1 Tab, ORAL, DAILY Multivitamins oral capsule, 1 Cap, ORAL, DAILY naproxen 500 mg oral tablet, 500 mg, 1 Tab, ORAL, BID, PRN traMADol 50 mg oral tablet, 50 mg, 1 Tab, ORAL, Q4H, PRN Tylenol Tylenol with Codeine #3 oral tablet, 1 Tab, ORAL, Q4H, PRN Vitamin C Vitamin D, 400 IntUnit, ORAL, DAILY Social History *Alcohol Screen Household alcohol concerns: No. Alcohol abuse in household: No. Use: Never. *Substance Abuse Screen Substance abuse in household: No. Household substance abuse concerns: No. Use: Never. *Tobacco Use Screen Tobacco Use: Former smoker. Tobacco Type: Cigarettes. pack(s) per day 0. Smokeless tobacco type amt used per day: trying to quit, states she hasn't smoked in a couple of days. Family History Family history is negative 07/16/2018 [facility] ED Physician Notes Patient: ROSE CAIN Age: 37 years Sex: FEMALE : 1980 Chief Complaint pt reports KHALIL and sore throat. Onset yesterday. Daughter and niece have strep throat. Mode of Arrival Walk-In History of Present Illness This is a 37-year-old female that presents the emergency [place] complaining of sore throat. Started yesterday. She has 2 children at home have strep she is concerned she also minute strep. She denies any fevers or chills. She denies a cough. She denies a runny nose. She denies any trauma. She denies any difficulty breathing or difficulty swallowing she has has pain with swallowing. Denies any other complaints. Review of Systems Constitutional: Negative for fatigue EENT: Negative visual changes Respiratory: Negative for hemoptysis Cardiovascular: Negative for orthopnea. Gastrointestinal: Negative for melena Genitourinary: Negative for hematuria. Musculoskeletal: Negative for myalgias Skin: Negative for pruritis Neurologic: Negative for weakness All other and above systems were reviewed and are negative unless otherwise noted in the HPI Physical Exam Triage Vital Signs T: 97.7 F HR: 68 RR: 16 BP: 126/84 SPO2: 99% HT: 154.94 cm WT: 90.7 kg(Dose Calc Wt.) WT: 90.7 kg BMI: 24.46 Airway: Patent - No gurgling, snoring, or stridor noted with respirations Breathing: good air movement. No accessory muscle use. Chest rise is equal and bilateral Circulation: No gross bleeding, no cyanosis or pallor noted. GENERAL: Patient is alert and able to carry on a conversation without difficulty. Resting comfortably in exam bed HEENT: Head: Atraumatic. Normocephalic. Eyes: pupils equal, round, reactive to light and accommodating. Extraocular movements intact. Mouth: Mucous membranes are pink and moist. Tympanic membranes are clear bilaterally, oropharynx is grossly clear, the uvula is midline, there is some erythema noted to the tonsils bilaterally with her mildly enlarged there is no peritonsillar fullness is no elevation of the tongue is no exudates noted. NECK: Trachea is midline. There is no JVD CARDIOVASCULAR: Auscultation of heart reveals S1 and S2 present. Regular rate and rhythm without murmurs, rubs or gallops. LUNGS: Lungs are clear to auscultation bilaterally without wheezes, rhonchi or rales. Chest wall movement is symmetrical. ABDOMEN: Soft, nontender, without rebound rigidity or guarding. EXTREMITIES: No Clubbing Cyanosis or edema. NEURO: CN II-XII grossly intact. Pt. follows all commands appropriately. Speech is normal. Moving all 4 extremities. [place] Coma Scale 15. MSK/Osteopathic: Normal bulk and tone. Skin: Grossly intact with no rashes, no diaphoresis. Cap refill is less than 2 seconds Further exam is deferred to focus on area of chief complaint. ED Course ED COURSE AND MEDICAL DECISION MAKING: The patient was triaged, placed in a room, and had vital signs taken by nursing staff. Nursing notes were reviewed. After the physical exam which is included above, patient is well-appearing, rapid strep test was performed at triage, subsequently this was negative. This point I feel the patient likely suffering from a viral pharyngitis. Culture will be performed to confirm this. She'll be treated with the Chloraseptic in the meantime. She can also take Tylenol Motrin drink plenty of fluids get plenty of rest but at this point I feel she is safe for discharge home return for any worsening persistent signs symptoms or new concerns and may develop.. I informed the patient of all results and we discussed clinical impression, possible diagnosis, and return precautions. Patient was educated to return within 24 hours for any worsening or persistent signs and symptoms. Patient expressed understanding. We discussed a plan for continuing care at the bedside to which the patient was agreeable to. Patient is welcome back to the Emergency Department at any time. Re-evaluation Most Recent Vital Signs T: 97.7 F HR: 68 RR: 16 BP: 126/84 SpO2: 99% WT: 90.7kg(Dose Calc Wt.) WT: 90.7kg MDM Diagnosis Pharyngitis Condition Stable Disposition Discharged Prescriptions Prescribed Medications 06/29/2018 00:12 PDT phenol topical, 5 [place], ORAL, Q4H, # 180 mL, 0 Refill(s), Acute Patient Education PHARYNGITIS, Viral Follow-Up Provider: Follow up with primary care provider Date: Within 1-2 days Comment: As we discussed the rapid strep test was negative, this is about 95% accurate there is a culture and follow-up test will be done in the next 24-48 hours that is 99% accurate if this is positive we will call you and notify you as well as give you antibiotics currently we'll treat her symptoms. Take medications as prescribed. As we discussed you should follow up with primary care doctor in next 2-4 days for further evaluation or please return to the emergency department for any worsening or persistent signs and symptoms or any new concerning signs or symptoms over the next 24 hours. 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/PA Time Patient Seen face to face: Date and time 06/28/2018 23:24:19 Past Medical History Active Problems No active problems Allergies Demerol Latex Phenergan Pyridium Toradol Vicodin doxycycline fentanyl lidocaine prednisone Home Medications albuterol CFC free 90 mcg/inh Inhaler, 2 Puff, INH, Q4H, PRN Chloraseptic Cool Mint 1.4% topical spray, 5 [place], ORAL, Q4H lamoTRIgine 25 mg oral tablet, 25 mg, 1 Tab, ORAL, DAILY Multivitamins oral capsule, 1 Cap, ORAL, DAILY naproxen 500 mg oral tablet, 500 mg, 1 Tab, ORAL, BID, PRN traMADol 50 mg oral tablet, 50 mg, 1 Tab, ORAL, Q4H, PRN Tylenol Tylenol with Codeine #3 oral tablet, 1 Tab, ORAL, Q4H, PRN Vitamin C Vitamin D, 400 IntUnit, ORAL, DAILY Social History *Alcohol Screen Household alcohol concerns: No. Alcohol abuse in household: No. Use: Never. *Substance Abuse Screen Substance abuse in household: No. Household substance abuse concerns: No. Use: Never. *Tobacco Use Screen Tobacco Use: Former smoker. Tobacco Type: Cigarettes. pack(s) per day 0. Smokeless tobacco type amt used per day: trying to quit, states she hasn't smoked in a couple of days. Family History Family history is negative Lab Results Labs All 24H Lab Results Date Culture Grp A Strep Confirmati Ordered 06/28/18 23:13 PDT Streptococcus Grp A Screen, Ra Negative 06/28/18 23:13 PDT 06/29/2018 [facility] ED Physician Notes Patient: ROSE CAIN Age: 37 years Sex: FEMALE : 1980 Chief Complaint Cough, chest congestion with yellow sputum x 1 week Mode of Arrival Walk-In History of Present Illness This 37-year-old female reports 2 weeks of URI symptoms. Her symptoms initially started in her nose and she had a hoarse throat. It is since descended into her chest and she is started to cough and has a feeling of heaviness in her chest. She does NOT endorse chest pain but rather describes this as a feeling similar to previous episodes of bronchitis. She denies. Of time where she felt better and then felt worse and reports that her nasal symptoms have largely subsided. She does feel that she has very little energy. She has taken ibuprofen She is an ex-smoker and reports no smoking for 5 years. She took ibuprofen this morning to address body aches and the possibility of fever but cannot state that she has had a fever; the highest temperature she reports is 100.2? last night. She denies nausea and vomiting. Review of Systems Constitutional: No fever, chills, weight loss, weakness. EENT: No sore throat, + nasal congestion, no ear pain, vision changes. Respiratory: +shortness of breath +wheeze. + Cough Cardiovascular: NO CHEST PAIN or palpitations. Gastrointestinal: No abdominal pain, nausea or vomiting. No diarrhea. Genitourinary: No dysuria or hematuria Musculoskeletal: No joint pain or swelling. Skin: No rash or lesion. Neurologic: No focal numbness or weakness. No seizures. Psychiatric: No suicidal or homicidal plan All other review of systems is negative. Physical Exam Triage Vital Signs T:98.2 F HR:94 RR:16 BP:121/81 SPO2:97 % HT: 154.94 cm WT: 91 kg(Dose Calc Wt.) WT: 91 kg BMI: 24.46 General Appearance: No acute distress. HEENT: NCAT. Pupils PERRL, EOMs intact, sclera anicteric. Mucus membranes moist. Oropharynx slightly erythematous without inflammation or exudate. Uvula midline. Neck supple without lymphadenopathy. Cardiac: Normal sinus rhythm. No murmurs, rub, gallop. Lungs: Nonlabored breaths. Clear to auscultation. No wheezes, rhonchi, rales. Abdomen: No guarding or distention. Neurological: Cranial nerves II-XII grossly intact. Patient is alert and conversant. Non-focal neuro exam. Skin: No rash or lesion. Musculoskeletal: No joint tenderness or loss of range of motion. Psychiatric: Alert and interactive with normal affect. ED Course Differential Diagnosis Viral URI versus bronchitis versus doubt pneumonia Diagnostics General Diagnostic Result Type: Chest 2 Vw Result Date: April 04, 2018 13:06 PST Reason For Exam: Cough REPORT: Reason for Exam: CoughOrdering Provider: ADILIA Shell: Chest 2 Vw Views: PA and lateralComparison Exam(s): Prior chest x-ray of March 11, 2012 FINDINGS: The lungs are well expanded and show no abnormal opacities. There is no blunting of the costophrenic sulci or pneumothorax. The cardiomediastinal silhouette and pulmonary vasculature are unremarkable. No bony or soft tissue abnormalities are noted. IMPRESSION: No acute cardiopulmonary disease. Re-evaluation Chest x-ray negative for acute process. Patient voices understanding to plan of care for follow-up and return precautions. MDM This 37-year-old female presents with exam consistent with viral URI. She is afebrile. Because she endorses history of bronchitis and is an ex-smoker, I did order chest x-ray, which was negative for acute process. Patient is not hypoxic or tachypneic and has excellent lung sounds. There is no evidence of otitis media or bacterial pharyngitis or meningitis. Patient is well-hydrated appearing, nontoxic appearing, is taking fluids and is appropriate for further care as an outpatient. Advised plenty of fluids, rest, over the counter ibuprofen or tylenol for fever/pain. Return for worsening difficulty breathing or fever. Diagnosis Viral URI Condition Stable Disposition Home Patient Education Viral URI (Adult) (03) (Custom) Follow-Up Provider: Bird White Date: Within 5-7 days, only if needed Comment: Your chest x-ray today showed no acute issues in your lungs. You also sound clear when I listen to your lungs. You should drink lots of fluids to keep mucus thin and as discussed, control fevers if they happen with ibuprofen or Tylenol. Return to the emergency department or follow-up with your primary care provider with ongoing symptoms that are not improving. Return to the emergency department with difficulty breathing, worsening cough, or high fevers, especially that he not respond ibuprofen or Tylenol. Address: [address] [place] [address] [facility] (1) [facility] – [place] Information LOLITA JACINTO/CAR TRIMMER/PA Time Patient Seen face to face: Date and time 04/04/2018 12:30:55 Past Medical History Active Problems No active problems Allergies Demerol Latex Phenergan Pyridium Toradol Vicodin doxycycline fentanyl lidocaine prednisone Home Medications albuterol CFC free 90 mcg/inh Inhaler, 2 Puff, INH, Q4H, PRN lamoTRIgine 25 mg oral tablet, 25 mg, 1 Tab, ORAL, DAILY Multivitamins oral capsule, 1 Cap, ORAL, DAILY naproxen 500 mg oral tablet, 500 mg, 1 Tab, ORAL, BID, PRN traMADol 50 mg oral tablet, 50 mg, 1 Tab, ORAL, Q4H, PRN Tylenol Tylenol with Codeine #3 oral tablet, 1 Tab, ORAL, Q4H, PRN Vitamin C Vitamin D, 400 IntUnit, ORAL, DAILY Social History *Alcohol Screen Household alcohol concerns: No. Alcohol abuse in household: No. Use: Never. *Substance Abuse Screen Substance abuse in household: No. Household substance abuse concerns: No. Use: Never. *Tobacco Use Screen Tobacco Use: Former smoker. Tobacco Type: Cigarettes. pack(s) per day 0. Smokeless tobacco type amt used per day: trying to quit, states she hasn't smoked in a couple of days. Family History Family history is negative 04/04/2018 [facility] Vital Signs Vital Sign Value Date Comments Source Respiratory rate 67 br/min 12/25/2023 75 [facility] Pulse Oximetry 98 % 12/25/2023 75 [facility] Systolic BP 132 mm[Hg] 12/25/2023 75 [facility] Diastolic BP 81 mm[Hg] 12/25/2023 75 [facility] Temperature (F) 97.0 [degF] 12/25/2023 75 [facility] Peripheral Pulse Rate 76 bpm 12/25/2023 75 [facility] Respiratory rate 18 br/min 12/25/2023 75 [facility] Systolic BP 125 mm[Hg] 12/25/2023 75 [facility] Diastolic BP 67 mm[Hg] 12/25/2023 75 [facility] Pulse Oximetry 97 % 12/25/2023 75 [facility] Body Weight Calculated 0 12/25/2023 75 [facility] Weight (kg) 100.5 kg 12/25/2023 75 [facility] Dose calculation weight (kg) 100.5 kg 12/25/2023 75 [facility] Body Mass Index 43.27 kg/m2 12/25/2023 75 [facility] HeightLength (cm) 152.40 cm 12/25[facility]20[facility] Peripheral Pulse Rate 67 bpm 10/27/2022 75 [facility] Respiratory rate 16 br/min 10/27/2022 75 [facility] Systolic BP 114 mm[Hg] 10/27/2022 75 [facility] Diastolic BP 87 mm[Hg] 10/27/2022 75 [facility] Pulse Oximetry 98 % 10/27/[address] [facility] Temperature (F) 97.8 [degF] 10/27/2022 75 [facility] Peripheral Pulse Rate 79 bpm 10/27/2022 75 [facility] Respiratory rate 17 br/min 10/27/2022 75 [facility] [employer] [facility] Systolic BP 136 mm[Hg] 10/27/2022 75 [facility] Diastolic BP 78 mm[Hg] 10/27/2022 75 [facility] Pulse Oximetry 98 % 10/27/[address] [facility] Weight (kg) 98.9 kg 10/27/2022 75 [facility] Dose calculation weight (kg) 98.9 kg 10/27/2022 75 [facility] HeightLength (cm) 152.4 cm 10/27/2022 75 Adve ntist [facility] Body Mass Index 42.58 kg/m2 10/27/2022 75 Adven [employer] [facility] [place] Body Weight Calculated 0 10/27/2022 75 Jew a [facility] Peripheral Pulse Rate 60 bpm 06/08/2022 75 [facility] Respiratory rate 18 br/min 06/08/2022 75 [facility] Systolic BP 124 mm[Hg] 06/08/2022 75 [facility] Diastolic BP 62 mm[Hg] 06/08/2022 75 [facility] Pulse Oximetry 99 % 06/08/2022 75 [facility] Pulse Oximetry 98 % 06/08/2022 75 [facility] Respiratory rate 16 br/min 06/08/2022 75 Adven [employer] [facility] Temperature (C) 36.1 Maxine 06/08/2022 75 [facility] Peripheral Pulse Rate 78 bpm 06/08/2022 75 [facility] Respiratory rate 16 br/min 06/08/2022 75 Adven [employer] [facility] Systolic BP 138 mm[Hg] 06/08/2022 75 [facility] Diastolic BP 65 mm[Hg] 06/08/2022 75 [facility] Pulse Oximetry 97 % 06/08/2022 75 [facility] Weight (kg) 95.6 kg 06/08/2022 75 [facility] Dose calculation weight (kg) 95.6 kg 06/08/2022 75 [facility] HeightLength (cm) 154.94 cm 06/08/2022 75 [facility] Body Mass Index 39.82 kg/m2 06/08/2022 75 [facility] [place] Body Weight Calculated 47.8 06/08/2022 75 [facility] Peripheral Pulse Rate 69 bpm 03/11/2022 75 [facility] Respiratory rate 17 br/min 03/11/2022 75 Adven [employer] [facility] Systolic BP 108 mm[Hg] 03/11/2022 75 [facility] Diastolic BP 59 mm[Hg] 03/11/2022 75 [facility] Pulse Oximetry 98 % 03/11/2022 75 [facility] Temperature (F) 97.8 [degF] 03/11/2022 75 [facility] Peripheral Pulse Rate 72 bpm 03/11/2022 75 [facility] Respiratory rate 16 br/min 03/11/2022 75 Adven [employer] [facility] Systolic BP 133 mm[Hg] 03/11/2022 75 [facility] Diastolic BP 93 mm[Hg] 03/11/2022 75 [facility] Pulse Oximetry 97 % 03/11/2022 75 [facility] Weight (kg) 96 kg 03/11/2022 75 [facility] Dose calculation weight (kg) 96 kg 03/11/2022 75 [facility] Temperature (F) 97.3 [degF] 12/31/2021 80 [facility] Peripheral Pulse Rate 79 bpm 12/31/2021 80 [facility] Respiratory rate 16 br/min 12/31/2021 80 [facility] Systolic BP 126 mm[Hg] 12/31/2021 80 [facility] Diastolic BP 73 mm[Hg] 12/31/2021 80 [facility] Pulse Oximetry 97 % 12/31/2021 80 [facility] Weight (kg) 91.63 kg 12/31/2021 80 [facility] Dose calculation weight (kg) 91.63 kg 12/31/2021 80 [facility] HeightLength (cm) 152.4 cm 12/31/2021 80 [facility] Body Mass Index 39.45 kg/m2 12/31/2021 80 [facility] [place] Body Weight Calculated 0 12/31/2021 80 [facility] Peripheral Pulse Rate 75 bpm 04/06/2021 75 [facility] Peripheral pulse site Pulse oximetry dev ice (04/06/21 2:45 PM) 04/06/2021 75 [facility] Respiratory rate 18 br/min 04/06/2021 75 [facility] Systolic BP 139 mm[Hg] 04/06/2021 75 [facility] Diastolic BP 79 mm[Hg] 04/06/2021 75 [facility] Pulse Oximetry 98 % 04/06/2021 75 [facility] Pulse oximetry method Intermittent (04/06 2:45 PM) 04/06/2021 75 [facility] Oxygen delivery Room air (04/06/21 2: 45 PM) 04/06/2021 75 [facility] Activity with SPO2 monitoring At rest (04/06/21 2:45 PM) 04/06/2021 75 [facility] Temperature (F) 98.7 [degF] 04/06/2021 75 [facility] Peripheral Pulse Rate 87 bpm 04/06/2021 75 [facility] Respiratory rate 18 br/min 04/06/2021 75 [facility] Systolic BP 131 mm[Hg] 04/06/2021 75 [facility] Diastolic BP 80 mm[Hg] 04/06/2021 75 [facility] Pulse Oximetry 98 % 04/06/2021 75 [facility] Weight (kg) 98.1 kg 04/06/2021 75 [facility] Weight measured method Standing scale ( 12:44 PM) 04/06/2021 75 [facility] Dose calculation weight (kg) 98.1 kg 04/06/2021 75 [facility] Peripheral Pulse Rate 79 bpm 03/25/2021 75 [facility] Respiratory rate 18 br/min 03/25/2021 75 [facility] Systolic BP 126 mm[Hg] 03/25/2021 75 [facility] Diastolic BP 87 mm[Hg] 03/25/2021 75 [facility] Pulse Oximetry 98 % 03/25/2021 75 [facility] Temperature (F) 98.1 [degF] 03/25/2021 75 [facility] Peripheral Pulse Rate 81 bpm 03/25/2021 75 [facility] Respiratory rate 18 br/min 03/25/2021 75 [facility] Systolic BP 116 mm[Hg] 03/25/2021 75 [facility] Diastolic BP 93 mm[Hg] 03/25/2021 75 [facility] Pulse Oximetry 99 % 03/25/2021 75 [facility] Weight (kg) 97 kg 03/25/2021 75 [facility] Dose calculation weight (kg) 97 kg 03/25/2021 75 [facility] Temperature (F) 97.8 [degF] 03/12/2021 75 [facility] Peripheral Pulse Rate 85 bpm 03/12/2021 75 [facility] Respiratory rate 16 br/min 03/12/2021 75 [facility] Systolic BP 142 mm[Hg] 03/12/2021 75 [facility] Diastolic BP 77 mm[Hg] 03/12/2021 75 [facility] Pulse Oximetry 97 % 03/12/2021 75 [facility] Weight (kg) 97 kg 03/12/2021 75 [facility] Weight measured method Standing scale ( 5:45 PM) 03/12/2021 75 [facility] Dose calculation weight (kg) 97 kg 03/12/2021 75 [facility] Peripheral Pulse Rate 76 bpm 03/05/2021 75 [facility] Peripheral pulse site Pulse oximetry dev ice (03/05/21 3:35 PM) 03/05/2021 75 [facility] Respiratory rate 16 br/min 03/05/2021 75 [facility] Systolic BP 115 mm[Hg] 03/05/2021 75 [facility] Diastolic BP 82 mm[Hg] 03/05/2021 75 [facility] Pulse Oximetry 97 % 03/05/2021 75 [facility] Pulse oximetry method Intermittent (03/05 3:35 PM) 03/05/2021 75 [facility] Oxygen delivery Room air (03/05/21 3: 35 PM) 03/05/2021 75 [facility] Activity with SPO2 monitoring At rest (03/05/21 3:35 PM) 03/05/2021 75 [facility] Temperature (F) 96.8 [degF] 03/05/2021 75 [facility] Per[facility] Pulse Rate 75 bpm 03/05/2021 75 [facility] Respiratory rate 16 br/min 03/05/2021 75 [facility] Systolic BP 112 mm[Hg] 03/05/2021 75 [facility] Diastolic BP 70 mm[Hg] 03/05/2021 75 [facility] Pulse Oximetry 98 % 03/05/2021 75 [facility] Weight (kg) 93 kg 03/05/2021 75 [facility] Weight measured method Stated (03/05/21 2 :44 PM) 03/05/2021 75 [facility] Dose calculation weight (kg) 93 kg 03/05/2021 75 [facility] Mean BP 89 mm[Hg] 11/16/2020 80 [facility] Pulse Oximetry 98 % 11/16/2020 80 [facility] Oxygen delivery Room air (11/15/20 10 :50 PM) 11/16/2020 80 [facility] Systolic BP 129 mm[Hg] 11/16/2020 80 [facility] Diastolic BP 78 mm[Hg] 11/16/2020 80 [facility] Peripheral Pulse Rate 85 bpm 11/16/2020 80 [facility] Temperature (F) 98.4 [degF] 11/16/2020 80 [facility] Peripheral pulse site Pulse oximetry dev ice (11/15/20 10:50 PM) 11/16/2020 80 [facility] Respiratory rate 18 br/min 11/16/2020 80 [facility] Pulse Oximetry 96 % 11/16/2020 80 [facility] Oxygen delivery Room air (11/15/20 10 :32 PM) 11/16/2020 80 [facility] Peripheral Pulse Rate 87 bpm 11/16/2020 80 [facility] Respiratory rate 18 br/min 11/16/2020 80 [facility] Mean BP 91 mm[Hg] 11/16/2020 80 [facility] Pulse Oximetry 99 % 11/16/2020 80 [facility] Oxygen delivery Room air (11/15/20 9: 54 PM) 11/16/2020 80 [facility] Systolic BP 113 mm[Hg] 11/16/2020 80 [facility] Diastolic BP 80 mm[Hg] 11/16/2020 80 [facility] Peripheral Pulse Rate 97 bpm 11/16/2020 80 [facility] Temperature (F) 98.8 [degF] 11/16/2020 80 [facility] Mean BP 102 mm[Hg] 11/16/2020 80 [facility] Systolic BP 116 mm[Hg] 11/16/2020 80 [facility] Diastolic BP 84 mm[Hg] 11/16/2020 80 [facility] Respiratory rate 20 br/min 11/16/2020 80 [facility] Peripheral pulse site Pulse oximetry dev ice (11/15/20 8:15 PM) 11/16/2020 80 [facility] Neurological norm WDL (11/15/20 7:07 PM) 11/16/2020 80 [facility] Temperature (F) 99.9 [degF] 11/16/2020 80 [facility] Peripheral pulse site Pulse oximetry dev ice (11/15/20 6:56 PM) 11/16/2020 80 [facility] Weight (kg) 93.89 kg 11/16/2020 80 [facility] Weight measured method Bed scale ( 1 6:56 PM) 11/16/2020 80 [facility] Dose calculation weight (kg) 93.89 kg 11/16/2020 80 [facility] HeightLength (cm) 152.40 cm 11/16/2020 80 [facility] Body Mass Index 40.42 kg/m2 11/16/2020 80 [facility] [place] Body Weight Calculated 0 11/16/2020 80 [facility] Temperature (F) 98.1 [degF] 09/20/2020 75 [facility] Peripheral Pulse Rate 65 bpm 09/20/2020 75 [facility] Peripheral pulse site Pulse oximetry dev ice (09/19/20 9:21 PM) 09/20/2020 75 [facility] Respiratory rate 18 br/min 09/20/2020 75 [facility] Systolic BP 116 mm[Hg] 09/20/2020 75 [facility] Diastolic BP 72 mm[Hg] 09/20/2020 75 [facility] Pulse Oximetry 100 % 09/20/[address] [facility] Temperature (F) 98.7 [degF] 07/09/2019 75 [facility] Pulse rate 69 bpm 07/09/2019 [facility] Res[facility] rate 12 br/min 07/09/2019 75 [facility] Pulse Oximetry 97 % 07/09/[address] [facility] Systolic BP 121 mm[Hg] 07/09/2019 75 [facility] Diastolic BP 74 mm[Hg] 07/09/2019 75 [facility] BP site Left arm (07/09/19 1: 10 PM) 07/09/2019 75 [facility] Weight (kg) 88.5 kg 07/09/2019 75 [facility] Weight measured method Standing scale ( 1:10 PM) 07/09/2019 75 [facility] HeightLength (cm) 154 cm 07/09/2019 75 [facility] Dose calculation weight (kg) 88.5 kg 07/09/2019 [facility] Pulse rate 76 bpm 06/03/2019 [facility] Respiratory rate 17 br/min 06/03/2019 75 [facility] Systolic BP 119 mm[Hg] 06/03/2019 75 [facility] Diastolic BP 86 mm[Hg] 06/03/2019 75 [facility] Pulse Oximetry 96 % 06/03/[address] [facility] Temperature (F) 98 [degF] 06/03/2019 [facility] Pulse rate 78 bpm 06/03/2019 [facility] Respiratory rate 18 br/min 06/03/2019 75 [facility] Pulse Oximetry 99 % 06/03/[address] [facility] Systolic BP 137 mm[Hg] 06/03/2019 75 [facility] Diastolic BP 69 mm[Hg] 06/03/2019 75 [facility] Weight (kg) 88.1 kg 06/03/2019 75 [facility] Weight measured method Standing scale ( 9:31 AM) 06/03/2019 75 [facility] HeightLength (cm) 162 cm 06/03/2019 75 [facility] Dose calculation weight (kg) 88.1 kg 06/03/2019 75 [facility] Systolic BP 131 mm[Hg] 01/01/2019 75 [facility] Diastolic BP 85 mm[Hg] 01/01/2019 75 [facility] Pulse Oximetry 97 % 01/01/2019 75 [facility] Respiratory rate 19 br/min 01/01/2019 75 [facility] Pulse rate 85 bpm 01/01/2019 75 [facility] Weight measured method Standing scale (12/31/18 8:56 PM) 01/01/2019 75 [facility] Dose calculation weight (kg) 91.9 kg 01/01/2019 75 [facility] Weight (kg) 91.9 kg 01/01/2019 75 [facility] Oxygen delivery Room air (12/31/18 8 :56 PM) 01/01/2019 75 [facility] Temperature (F) 97.9 [degF] 01/01/2019 75 [facility] Oxygen delivery Room air (11/07/18 10 :05 PM) 11/08/2018 75 [facility] Activity with SPO2 monitoring At rest (11/07/18 10:05 PM) 11/08/2018 75 [facility] Pulse Oximetry 100 % 11/08/2018 75 [facility] Pulse oximetry method Intermittent (11/07 10:05 PM) 11/08/2018 75 [facility] Temperature (F) 97.0 [degF] 11/08/2018 75 [facility] Respiratory rate 18 br/min 11/08/2018 75 [facility] Pulse rate 64 bpm 11/08/2018 75 [facility] Dose calculation weight (kg) 91.2 kg 11/08/2018 75 [facility] HeightLength (cm) 154 cm 11/08/2018 75 [facility] Weight (kg) 91.2 kg 11/08/2018 75 [facility] Weight measured method Standing scale ( 8:44 PM) 11/08/2018 75 [facility] BP site Left arm (11/07/18 8: 44 PM) 11/08/2018 75 [facility] Systolic BP 132 mm[Hg] 11/08/2018 75 [facility] Diastolic BP 87 mm[Hg] 11/08/2018 75 [facility] Respiratory rate 16 br/min 11/08/2018 75 [facility] Pulse Oximetry 99 % 11/08/2018 75 [facility] Pulse rate 65 bpm 11/08/2018 75 [facility] Temperature (F) 98.1 [degF] 11/08/2018 75 [facility] Oxygen delivery Room air (11/07/18 8: 44 PM) 11/08/2018 75 [facility] BP site Right arm (08/28/18 8: 05 PM) 08/29/2018 75 [facility] Weight (kg) 90.6 kg 08/29/2018 75 [facility] Respiratory rate 18 br/min 08/29/2018 75 [facility] Systolic BP 125 mm[Hg] 08/29/2018 75 [facility] Diastolic BP 71 mm[Hg] 08/29/2018 75 [facility] Pulse Oximetry 99 % 08/29/2018 75 [facility] Dose calculation weight (kg) 90.6 kg 08/29/2018 75 [facility] Oxygen delivery Room air (08/28/18 8:0 5 PM) 08/29/2018 75 [facility] Temperature (C) 36.7 Maxine 08/29/2018 75 [facility] Pulse rate 71 bpm 08/29/2018 75 [facility] Temperature (F) 98.1 [degF] 08/29/2018 75 [facility] Activity with SPO2 monitoring At rest (08/02/18 11:50 PM) 08/03/2018 75 [facility] Pulse oximetry method Intermittent (08/02 11:50 PM) 08/03/2018 75 [facility] Pulse Oximetry 96 % 08/03/2018 75 [facility] Respiratory rate 16 br/min 08/03/2018 75 [facility] Systolic BP 108 mm[Hg] 08/03/2018 75 [facility] Diastolic BP 77 mm[Hg] 08/03/2018 75 [facility] Pulse rate 66 bpm 08/03/2018 75 [facility] Oxygen delivery Room air (08/02/18 11 :50 PM) 08/03/2018 75 [facility] Respiratory rate 18 br/min 08/03/2018 75 [facility] Pulse rate 83 bpm 08/03/2018 75 [facility] Pulse Oximetry 98 % 08/03/2018 75 [facility] Temperature (F) 98.2 [degF] 08/03/2018 75 [facility] Weight measured method Standing scale ( 11:05 PM) 08/03/2018 75 [facility] Dose calculation weight (kg) 91.3 kg 08/03/2018 75 [facility] Weight (kg) 91.3 kg 08/03/2018 75 [facility] Systolic BP 143 mm[Hg] 08/03/2018 75 [facility] Diastolic BP 94 mm[Hg] 08/03/2018 75 [facility] BP site Right arm (08/02/18 11:05 PM) 08/03/2018 75 [facility] Oxygen delivery Room air (08/02/18 11 :05 PM) 08/03/2018 75 [facility] Pulse Oximetry 99 % 07/16/2018 75 [facility] Pulse oximetry method Intermittent (07/15 7:05 PM) 07/16/2018 75 [facility] Oxygen delivery Room air (07/15/18 7: 05 PM) 07/16/2018 75 [facility] Temperature (F) 97.3 [degF] 07/16/2018 75 [facility] Respiratory rate 18 br/min 07/16/2018 75 [facility] Pulse rate 74 bpm 07/16/2018 75 [facility] Activity with SPO2 monitoring At rest (07/15/18 7:05 PM) 07/16/2018 75 [facility] Weight measured method Standing scale ( 5:07 PM) 07/16/2018 75 [facility] Dose calculation weight (kg) 91.2 kg 07/16/2018 75 [facility] Weight (kg) 91.2 kg 07/16/2018 75 [facility] Pulse rate 81 bpm 07/16/2018 75 [facility] Temperature (F) 97.4 [degF] 07/16/2018 75 [facility] Systolic BP 124 mm[Hg] 07/16/2018 75 [facility] Diastolic BP 83 mm[Hg] 07/16/2018 75 [facility] Pulse Oximetry 100 % 07/16/2018 75 [facility] Respiratory rate 18 br/min 07/16/2018 75 [facility] Oxygen delivery Room air (06/29/18 12: 20 AM) 06/29/2018 75 [facility] Pulse rate 70 bpm 06/29/2018 75 [facility] Temperature (F) 98.0 [degF] 06/29/2018 75 [facility] Pulse Oximetry 99 % 06/29/[address] [facility] Respiratory rate 16 br/min 06/29/2018 75 [facility] Systolic BP 115 mm[Hg] 06/29/2018 75 [facility] Diastolic BP 68 mm[Hg] 06/29/2018 75 [facility] Dose calculation weight (kg) 90.7 kg 06/29/2018 75 Jew [facility] Weight measured method Standing scale ( 11:02 PM) 06/29/2018 75 [facility] Weight (kg) 90.7 kg 06/29/2018 75 [facility] BP site Left arm (06/28/18 11: 02 PM) 06/29/2018 75 [facility] Systolic BP 126 mm[Hg] 06/29/2018 75 [facility] Diastolic BP 84 mm[Hg] 06/29/2018 75 [facility] Pulse Oximetry 99 % 06/29/[address] [facility] Temperature (F) 97.7 [degF] 06/29/2018 75 Adven [employer] [facility] Respiratory rate 16 br/min 06/29/2018 75 [facility] Pulse rate 68 bpm 06/29/2018 [facility] Respiratory rate 18 br/min 04/04/2018 75 [facility] Temperature (F) 98.2 [degF] 04/04/2018 75 [facility] Systolic BP 121 mm[Hg] 04/04/2018 75 [facility] Diastolic BP 81 mm[Hg] 04/04/2018 75 [facility] Weight (kg) 91 kg 04/04/2018 75 [facility] Weight measured method Standing scale ( 12:12 PM) 04/04/2018 75 [facility] Dose calculation weight (kg) 91 kg 04/04/2018 75 Jew Hea [facility] Pulse rate 94 bpm 04/04/2018 [facility] Respiratory rate 16 br/min 04/04/2018 75 Bryce holcomb [facility] Pulse Oximetry 97 % 04/04/2018 75 [facility] Encounters Location Location Details Encounter Type Encounter Number Reason For Visit Attending Provider ADM Date DC Date Status Source 75 75 [facility] [id number] COUGH, CHEST PAIN, FEVER Tod Carlos Enriqueato 04/04 Active [facility] 75 75 [facility] [id number] SORE THROAT,H EADACHE Quincy Apodaca 06/29 Active [facility] 75 75 [facility] [id number] R HAND THUMB PAIN Germain Govea 07/16 Active [facility] 75 75 [facility] [id number] ABSCESSE D TOOTH Germain Govea 08/03 Active [facility] 75 75 [facility] [id number] Theresa Berrios 08/04 Active [facility] 75 75 [facility] [id number] BLADDER PAIN Carlos Marcano 08/29 Active [facility] 75 75 [facility] [id number] TOOTH PAIN Raphael Romero 11/08 Active [facility] 75 75 [facility] [id number] obesity Bird White 12/28 Active [facility] 75 75 [facility] [id number] TOOTH ACHE Aniya Moctezuma 01/01 Active [facility] 75 75 [facility] [id number] obesity 02/09 Cancel [facility] 75 75 [facility] Emergency [id number] POSS UTI Valery Herman 06/02 Active [facility] 75 75 [facility] Emergency [id number] DENTAL PAIN Chaparro Ruiz 07/08 Active [facility] 75 75 [facility]patient [id number] Bird Cindy 04/04 Active [facility] 75 75 [facility] [id number] cervical spinal stenosis Bird White 05/02 Active [facility] 75 75 [facility] [id number] POSS UTI Christi Mackenzie 09/20 Active [facility] 75 75 [facility] [id number] BODY ACHES, FEVER, NAUSEA Tristin Duglasluis 11/15 Active [facility] [address] [facility] [address] Emergency [id number] FEVER, DENTAL/ ABD PAIN Josh Linnette humphreys 11/16 Active [facility] 75 75 [facility] [id number] TOOTH PAIN Nedia Raygoza 03/05 Active [facility] 75 75 [facility] [id number] COUGH, SORE THROAT Kimberley Garcia 03/12 Active [facility] 75 75 [facility] [id number] COUGH, CHEST PAIN, SHORTNES S OF BREATH Raphael Romero 03/25 Active [facility] 75 75 [facility] [id number] TOOTH PAIN James Kearns 04/06 Active [facility] [address] [facility] [facility] Emergency [id number] VOMITING Kimberleyranjith Garcia 12/31 Active [facility] 75 75 [facility] [id number] UTI, CONGESTI ON, COUGH Quincy Apodaca 03/11 Active [facility] 75 75 [facility] [id number] DYSURIA Dianna Aguayo 06/08 Active [facility] [id number] BACK PAIN ,DYSURA Ranid Lawrence 10/27 Active [facility] 75 75 [facility] [id number] UTI SYMPOTMS Supriya Duong 12/24 Active [facility] 75 75 [facility] Preadmit [id number] Laili Falatoonzad 09/20 Active [facility] 75 75 [facility] Pread[facility] [id number] Laili Falatoonzad 07/20 Active [facility] 75 75 [facility] Pread[facility] [id number] Bird Cindy 09/04 Active [facility] Procedures Procedure Code Date Perfomer Comments Source ROUTINE VENIPUNCTURE 68034 04/04/2020 75 [facility] ROUTINE VENIPUNCTURE [id number] 08/04/2018 75 [facility] Plan of Care Plan of Care Date Source Diagnostic Tests PendingCult ure Urine 10/26/22Chlamydia trachomatis + Gonorrhoeae PCR Rapid 10/26/22 10/27/2022 75 [facility] vick Extracted from:Title: ED Not e Author: DO Romero Brandon C Date: 03/24/21 Shortness of breath (Shortness of breath, [id number]) Dyspnea secondary to recent COVID-19?infection ? Plan: Discharge to home Activity as tolerated Follow-up with primary care Return to the emergency department increased difficulty breathing or any other concerning symptoms Orders: Basic Metabolic Panel BMP CBC w Differential Chest 1 Vw Portable D Dimer Quantitative ECG 12 Lead - CV (ED) Point of Care Testing Saline Lock Troponin I 03/25/2021 75 [facility] vick Social History Social History Date Source Social History TypeResponse *Tobacco Use Screen Is there a smoker in the household? No. Sex Female [facility] Social History TypeResponse *Tobacco Use Screen Is there a smoker in the household? No. Sex Female 75 [facility] Social History TypeResponse *Tobacco Use Screen Is there a smoker in the household? No. Sex Female 75 [facility] Social History TypeResponse *Tobacco Use Screen Is there a smoker in the household? No. Sex Female 75 [facility] Social History TypeResponse *Tobacco Use Screen Is there a smoker in the household? No. Sex Female 75 [facility] Social History TypeResponse *Tobacco Use Screen Is there a smoker in the household? No. Sex Female [facility] Social History TypeResponse *Tobacco Use Screen Is there a smoker in the household? No. Sex Female 80 [facility] Social History TypeResponse *Tobacco Use Screen Is there a smoker in the household? No. Sex Female 75 [facility] Social History TypeResponse *Tobacco Use Screen Is there a smoker in the household? No. Sex Female 75 [facility] Social History TypeResponse *Tobacco Use Screen Is there a smoker in the household? No. Sex Female 80 [facility] Social History TypeResponse *Tobacco Use Screen Is there a smoker in the household? No. Sex Female 75 [facility] Social History TypeResponse *Tobacco Use Screen Is there a smoker in the household? No. Sex Female 75 [facility] Social History TypeResponse Smoking Status Former smoker; Type: Cigarettes; Tobacco use (Packs per day): 0; Smokeless Tobacco Use per Day trying to quit, states she hasn't smoked in a couple of days; 1 entered on: 08/18/15 Sex Female 16 ciggs per day 04/06/2021 75 [facility] Social History TypeResponse *Tobacco Use Screen Is there a smoker in the household? No. 05/03/2020 75 [facility] Social History TypeResponse *Tobacco Use Screen Is there a smoker in the household? No. 04/05/2020 75 [facility] Social History TypeResponse *Tobacco Use Screen Is there a smoker in the household? No. 07/09/2019 75 [facility] Social History TypeResponse *Tobacco Use Screen Is there a smoker in the household? No. 06/03/2019 75 [facility] Social History TypeResponse *Tobacco Use Screen Is there a smoker in the household? No. 06/03/2019 75 [facility] Social History TypeResponse *Tobacco Use Screen Is there a smoker in the household? No. 06/03/2019 75 [facility] Social History TypeResponse *Tobacco Use Screen Is there a smoker in the household? No. 06/03/2019 75 [facility] Social History TypeResponse *Tobacco Use Screen Is there a smoker in the household? No. 06/03/2019 75 [facility] Social History TypeResponse *Tobacco Use Screen Is there a smoker in the household? No. Do you have concerns about tobacco use in household? No. 01/01/2019 75 [facility] Social History TypeResponse *Tobacco Use Screen Is there a smoker in the household? No. Do you have concerns about tobacco use in household? No. 01/01/2019 75 [facility] Social History TypeResponse *Tobacco Use Screen Is there a smoker in the household? No. 12/29/2018 75 [facility] Social History TypeResponse *Tobacco Use Screen Is there a smoker in the household? No. 11/08/2018 75 [facility] Social History TypeResponse *Tobacco Use Screen Is there a smoker in the household? No. 08/29/2018 75 [facility] Social History TypeResponse *Tobacco Use Screen Is there a smoker in the household? No. 08/05/2018 75 [facility] Social History TypeResponse *Tobacco Use Screen Is there a smoker in the household? No. 08/03/2018 75 [facility] Social History TypeResponse *Tobacco Use Screen Is there a smoker in the household? No. 07/16/2018 75 [facility] Social History TypeResponse *Tobacco Use Screen Is there a smoker in the household? No. 07/16/2018 75 [facility] Social History TypeResponse *Tobacco Use Screen Is there a smoker in the household? No. 07/16/2018 75 [facility] Social History TypeResponse *Tobacco Use Screen Is there a smoker in the household? No. 07/16/2018 75 [facility] Social History TypeResponse *Tobacco Use Screen Is there a smoker in the household? No. 07/16/2018 75 [facility] Social History TypeResponse *Tobacco Use Screen Is there a smoker in the household? No. 07/16/2018 75 [facility] Social History TypeResponse *Tobacco Use Screen Is there a smoker in the household? No. 07/16/2018 75 [facility] Social History TypeResponse Smoking Status Former smoker; Type: Cigarettes; Tobacco use (Packs per day): 0; Smokeless Tobacco Use per Day trying to quit, states she hasn't smoked in a couple of days; 1 entered on: 08/18/15 16 ciggs per day 08/18/[address] [place] [address] lley Social History TypeResponse Smoking Status Former smoker; Type: Cigarettes; Tobacco use (Packs per day): 0; Smokeless Tobacco Use per Day trying to quit, states she hasn't smoked in a couple of days; 1 entered on: 08/18/15 16 ciggs per day 08/18/[address] [place], [place] [address]ey Social History TypeResponse Smoking Status Former smoker; Type: Cigarettes; Tobacco use (Packs per day): 0; Smokeless Tobacco Use per Day trying to quit, states she hasn't smoked in a couple of days; 1 entered on: 08/18/15 Sex Female 16 ciggs per day 08/18/[address] [place], [place] [address]ey Social History TypeResponse Smoking Status Former smoker; Type: Cigarettes; Tobacco use (Packs per day): 0; Smokeless Tobacco Use per Day trying to quit, states she hasn't smoked in a couple of days; 1 entered on: 08/18/15 Sex Female 16 ciggs per day 08/18/[address] [place], [place] [address]ey Social History TypeResponse Smoking Status Former smoker; Type: Cigarettes; Tobacco use (Packs per day): 0; Smokeless Tobacco Use per Day trying to quit, states she hasn't smoked in a couple of days; 1 entered on: 08/18/15 Sex Female 16 ciggs per day 08/18/2015 80 [facility] Riaz nolasco Social History TypeResponse Smoking Status Former smoker; Type: Cigarettes; Tobacco use (Packs per day): 0; Smokeless Tobacco Use per Day trying to quit, states she hasn't smoked in a couple of days; 1 entered on: 08/18/15 Sex Female 16 ciggs per day 08/18/2015 75 [facility] vick Social History TypeResponse Smoking Status Former smoker; Type: Cigarettes; Tobacco use (Packs per day): 0; Smokeless Tobacco Use per Day trying to quit, states she hasn't smoked in a couple of days; 1 entered on: 08/18/15 Sex Female 16 ciggs per day 08/18/2015 75 [facility] Social History TypeResponse Smoking Status Former smoker; Type: Cigarettes; Tobacco use (Packs per day): 0; Smokeless Tobacco Use per Day trying to quit, states she hasn't smoked in a couple of days; 1 entered on: 08/18/15 Sex Female 16 ciggs per day 08/18/2015 75 [facility] Social History TypeResponse Smoking Status Former smoker; Type: Cigarettes; Tobacco use (Packs per day): 0; Smokeless Tobacco Use per Day trying to quit, states she hasn't smoked in a couple of days; 1 entered on: 08/18/15 Sex Female 16 ciggs per day 08/18/2015 75 [facility] Melinda hickman
== END 2024-05-26 23:55 | disposition home or self-care (01) ==
PROVIDERS: Emergency Provider Emergency Medicine
DX: K08.409 Partial loss of teeth, unspecified cause, unspecified class (principal); R22.0 Localized swelling, mass and lump, head
CPT/HCPCS: 70491; 80053; 85025; 86803; 87389; 99285; Q9967